=== PATIENT | male | born 1950 | race Caucasian/White ===

== ENCOUNTER 2017-04-20 14:08 | Inpatient (IN) | payer OTHER ==
--- NOTE | 2017-04-20 14:17 | EDM.PDOC ---
ED HPI GENERAL MEDICAL PROBLEM - General Stated Complaint: CHEST PAIN/ABDOMINAL PAIN Time Seen by Provider: 04/20/17 14:10 Source of Information: Reports: Patient History Limitations: Reports: No Limitations - History of Present Illness INITIAL COMMENTS - FREE TEXT/NARRATIVE: History of present illness: []Patient's had 2 weeks of right lower abdominal pain that radiates upward and causes pain below his shoulder blade on the right. He denies any fevers or chills, nausea or vomiting or bloody diarrhea. Was constipated and took over-the -counter meds for that. He is followed by the [facility] and sent him here for evaluation of chest pain. He denies any chest pain at this time. Patient states his appetite has not changed much he tolerates food. Review of systems: As per history of present illness and below otherwise all systems reviewed and negative. Past medical history: As per history of present illness and as reviewed below otherwise noncontributory. Surgical history: As per history of present illness and as reviewed below otherwise noncontributory. Social history: No reported history of drug or alcohol abuse. Family history: As per history of present illness and as reviewed below otherwise noncontributory. Physical exam: General: Well developed, well nourished in NAD HEENT: Atraumatic, normocephalic, pupils reactive, negative for conjunctival pallor or scleral icterus, mucous membranes moist, throat clear, neck supple, nontender, trachea midline. Lungs: Clear to auscultation, breath sounds equal bilaterally, chest nontender. Heart: S1S2, regular, negative for clicks, rubs, or JVD. Abdomen: Soft, nondistended, tender in the right upper and lower and left mid abdomen without rebound or guarding. Negative for masses or hepatosplenomegaly. Negative for costovertebral tenderness. Pelvis: Stable nontender. Genitourinary: Deferred. Rectal: Deferred. Extremities: Atraumatic, negative for cords or calf pain. Neurovascular unremarkable. Neuro: Awake, alert, oriented. Cranial nerves II through XII unremarkable. Cerebellum unremarkable. Motor and sensory unremarkable throughout. Exam nonfocal. Diagnostics: []Labs showing elevated white count of 19,000 and elevated liver function tests. UA is negative for infection positive for bilirubin. Lipase is 1000. CT abdomen and pelvis was ordered Therapeutics: []Patient was IV hydrated and kept nothing by mouth Impression: []Acute pancreatitis Plan: []Admit for IV hydration, further treatment Definitive disposition and diagnosis as appropriate pending reevaluation and review of above. Abdomen Pain Score (Numeric/FACES): 5 - Related Data Allergies Allergy/AdvReac Type Severity Reaction Status Date / Time No Known Allergies Allergy Verified 04/20/17 14:21 Home Meds: Home Meds Ibuprofen [Advil] 2 tab PO ASDIRECTED 04/20/17 [History] Past Medical History - Past Surgical History Other Musculoskeletal Surgeries/Procedures:: right finger surgery Social & Family History - Tobacco Use Smoking Status *Q: Never Smoker - Recreational Drug Use Recreational Drug Use: No ED ROS GENERAL - Review of Systems Review Of Systems: See Below ED EXAM, GENERAL - Physical Exam Exam: See Below (see history of present illness) Course - Vital Signs Last Recorded V/S: Last Vital Signs Temp 35.6 C 04/21/17 08:00 Pulse 75 04/21/17 08:00 Resp 22 H 04/21/17 08:00 BP 118/70 04/21/17 08:00 Pulse Ox 92 L 04/21/17 08:00 - Orders/Labs/Meds Orders: Active Orders 24 hr Category Date Time Status Patient Status [ADT] Routine ADT 04/20/17 17:25 Active Oxygen Therapy [RC] PRN Care 04/20/17 17:25 Active VTE/DVT Education [RC] PER UNIT ROUTINE Care 04/20/17 17:25 Active Vital Signs [RC] Q4H Care 04/20/17 17:25 Active Nothing per Oral Now Diet [DIET] Diet 04/20/17 Dinner Active Abdomen Pelvis w Cont [CT] Stat Exams 04/20/17 15:13 Ordered Chest 1V Frontal [CR] Stat Exams 04/20/17 14:20 Taken BASIC METABOLIC PANEL,BMP [CHEM] AM Lab 04/22/17 05:11 Ordered BASIC METABOLIC PANEL,BMP [CHEM] AM Lab 04/23/17 05:11 Ordered CBC WITH AUTO DIFF [HEME] AM Lab 04/22/17 05:11 Ordered CBC WITH AUTO DIFF [HEME] AM Lab 04/23/17 05:11 Ordered HYDROmorphone [Dilaudid] Med 04/20/17 17:24 Active 1 mg IVPUSH Q2H PRN Ondansetron [Zofran] Med 04/20/17 17:24 Active 4 mg IVPUSH Q4H PRN Sodium Chloride 0.9% [Normal Saline] 1,000 ml Med 04/20/17 17:45 Active IV ASDIRECTED Sodium Chloride 0.9% [Saline Flush] Med 04/20/17 14:19 Active 10 ml FLUSH ASDIRECTED PRN Sodium Chloride 0.9% [Saline Flush] Med 04/20/17 14:19 Active 2.5 ml FLUSH ASDIRECTED PRN Saline Lock Insert [OM.PC] Stat Ot 04/20/17 14:18 Ordered Saline Lock Insert [OM.PC] Stat Ot 04/20/17 14:19 Ordered Resuscitation Status Routine Resus Stat 04/20/17 17:24 Ordered Medication Orders Bisacodyl (Dulcolax) 10 mg PO DAILY [facility] Last Admin: 04/21/17 08:50 Dose: 10 mg Enoxaparin Sodium (Lovenox) 40 mg SUBCUT Q24H [facility] Last Admin: 04/20/17 19:19 Dose: 40 mg Hydromorphone HCl (Dilaudid) 1 mg IVPUSH Q2H PRN PRN Reason: Pain (severe 7-10) Sodium Chloride (Normal Saline) 1,000 mls @ 500 mls/hr IV ASDIRECTED [facility] Stop: 04/21/17 19:44 Last Admin: 04/20/17 21:36 Dose: 500 mls/hr Infusion: 04/20/17 20:31 Dose: 500 mls/hr Admin: 04/20/17 18:31 Dose: 500 mls/hr Ciprofloxacin/Dextrose 400 mg/ (Premix) 200 mls @ 200 mls/hr IV Q12H [facility] Last Admin: 04/21/17 08:51 Dose: 200 mls/hr Infusion: 04/20/17 20:31 Dose: 200 mls/hr Admin: 04/20/17 19:31 Dose: 200 mls/hr Sodium Chloride (Normal Saline) 1,000 mls @ 200 mls/hr IV ASDIRECTED [facility] Last Admin: 04/21/17 10:58 Dose: 200 mls/hr Infusion: 04/21/17 09:45 Dose: 200 mls/hr Admin: 04/21/17 04:45 Dose: 200 mls/hr Infusion: 04/21/17 04:41 Dose: 200 mls/hr Admin: 04/20/17 23:41 Dose: 200 mls/hr Ondansetron HCl (Zofran) 4 mg IVPUSH Q4H PRN PRN Reason: Pain Last Admin: 04/20/17 18:52 Dose: 4 mg Oxycodone HCl (Oxycodone) 10 mg PO Q4H PRN PRN Reason: Abdominal Pain Last Admin: 04/21/17 09:23 Dose: 10 mg Sodium Chloride (Saline Flush) 10 ml FLUSH ASDIRECTED PRN PRN Reason: Keep Vein Open Last Admin: 04/20/17 14:34 Dose: 10 ml Sodium Chloride (Saline Flush) 2.5 ml FLUSH ASDIRECTED PRN PRN Reason: Keep Vein Open Last Admin: 04/20/17 14:34 Dose: 2.5 ml Temazepam (Restoril) 15 mg PO BEDTIME PRN PRN Reason: Agitation Labs: Laboratory Tests 04/20/17 04/20/17 04/20/17 Range/Units 14:10 14:33 14:33 WBC 19.96 H (4.0-11.0) K/uL RBC 4.44 L (4.50-5.90) M/uL Hgb 15.4 (13.0-17.0) g/dL Hct 44.2 (38.0-50.0) % MCV 99.5 H (80.0-98.0) fL MCH 34.7 H (27.0-32.0) pg MCHC 34.8 (31.0-37.0) g/dL RDW Std Deviation 48.3 (28.0-62.0) fl RDW Coeff of Yasmani 13 (11.0-15.0) % Plt Count 332 (150-400) K/uL MPV 9.10 (7.40-12.00) fL Add Manual Diff YES Neutrophils % (Manual) 71 (48.0-80.0) % Band Neutrophils % 15 % Lymphocytes % (Manual) 11 L (16.0-40.0) % Monocytes % (Manual) 3 (0.0-15.0) % Nucleated RBC % 0.0 /100WBC Absolute Seg Neuts 14.2 Band Neutrophils # 3.0 Lymphocytes # (Manual) 2.2 Monocytes # (Manual) 0.6 Nucleated RBCs # 0 K/uL Lactate (0.20-2.00) mmol/L Sodium 137 (136-146) mmol/L Potassium 4.3 (3.5-5.1) mmol/L Chloride 102 (98-110) mmol/L Carbon Dioxide 25 (21-31) mmol/L BUN 11 (6.0-23.0) mg/dL Creatinine 0.8 (0.6-1.5) mg/dL Est Cr Clr Drug Dosing TNP Estimated GFR (MDRD) > 60.0 ml/min Glucose 170 H (60-110) mg/dL Hemoglobin A1c (0.0-6.0) % Calcium 8.4 L (8.8-10.8) mg/dL Total Bilirubin 1.9 H (0.1-1.5) mg/dL AST 169 H (5-40) IU/L ALT 252 H (8-54) IU/L Alkaline Phosphatase 199 H (40-150) Troponin I (0.0-0.29) NG/ML B-Natriuretic Peptide (<100) PG/ML Total Protein 7.6 (6.0-8.0) g/dL Albumin 3.2 L (3.4-4.8) g/dL Globulin 4.4 H (2.0-3.5) g/dL Albumin/Globulin Ratio 0.7 L (1.3-2.8) Triglycerides (10-190) mg/dL Cholesterol (131-240) mg/dL LDL Cholesterol, Calc (60-180) mg/dL VLDL Cholesterol (5-55) mg/dL HDL Cholesterol (40-80) mg/dL Cholesterol/HDL Ratio (3.3-6.0) Lipase (7-80) U/L Urine Color DARK YELLOW Urine Appearance CLEAR Urine pH 6.5 (5.0-8.0) Ur Specific [place] 1.015 (1.001-1.035) Urine Protein TRACE (NEGATIVE) mg/dL Urine Glucose (UA) 100 H (NEGATIVE) mg/dL Urine Ketones TRACE H (NEGATIVE) mg/dL Urine Occult Blood NEGATIVE (NEGATIVE) Urine Nitrite POSITIVE H (NEGATIVE) Urine Bilirubin MODERATE H (NEGATIVE) Urine Ictotest POSITIVE Urine Urobilinogen 4.0 H (<2.0) EU/dL Ur Leukocyte Esterase NEGATIVE (NEGATIVE) Urine RBC 0-2 (0-2/HPF) Urine WBC 0-2 (0-5/HPF) Ur Epithelial Cells FEW (NONE-FEW) Urine Bacteria FEW (NEGATIVE) 04/20/17 04/20/17 04/20/17 Range/Units 14:33 14:33 14:33 WBC (4.0-11.0) K/uL RBC (4.50-5.90) M/uL Hgb (13.0-17.0) g/dL Hct (38.0-50.0) % MCV (80.0-98.0) fL MCH (27.0-32.0) pg MCHC (31.0-37.0) g/dL RDW Std Deviation (28.0-62.0) fl RDW Coeff of Yasmani (11.0-15.0) % Plt Count (150-400) K/uL MPV (7.40-12.00) fL Add Manual Diff Neutrophils % (Manual) (48.0-80.0) % Band Neutrophils % % Lymphocytes % (Manual) (16.0-40.0) % Monocytes % (Manual) (0.0-15.0) % Nucleated RBC % /100WBC Absolute Seg Neuts Band Neutrophils # Lymphocytes # (Manual) Monocytes # (Manual) Nucleated RBCs # K/uL Lactate 1.3 (0.20-2.00) mmol/L Sodium (136-146) mmol/L Potassium (3.5-5.1) mmol/L Chloride (98-110) mmol/L Carbon Dioxide (21-31) mmol/L BUN (6.0-23.0) mg/dL Creatinine (0.6-1.5) mg/dL Est Cr Clr Drug Dosing Estimated GFR (MDRD) ml/min Glucose (60-110) mg/dL Hemoglobin A1c (0.0-6.0) % Calcium (8.8-10.8) mg/dL Total Bilirubin (0.1-1.5) mg/dL AST (5-40) IU/L ALT (8-54) IU/L Alkaline Phosphatase (40-150) Troponin I < 0.10 (0.0-0.29) NG/ML B-Natriuretic Peptide 40 (<100) PG/ML Total Protein (6.0-8.0) g/dL Albumin (3.4-4.8) g/dL Globulin (2.0-3.5) g/dL Albumin/Globulin Ratio (1.3-2.8) Triglycerides (10-190) mg/dL Cholesterol (131-240) mg/dL LDL Cholesterol, Calc (60-180) mg/dL VLDL Cholesterol (5-55) mg/dL HDL Cholesterol (40-80) mg/dL Cholesterol/HDL Ratio (3.3-6.0) Lipase (7-80) U/L Urine Color Urine Appearance Urine pH (5.0-8.0) Ur Specific [place] (1.001-1.035) Urine Protein (NEGATIVE) mg/dL Urine Glucose (UA) (NEGATIVE) mg/dL Urine Ketones (NEGATIVE) mg/dL Urine Occult Blood (NEGATIVE) Urine Nitrite (NEGATIVE) Urine Bilirubin (NEGATIVE) Urine Ictotest Urine Urobilinogen (<2.0) EU/dL Ur Leukocyte Esterase (NEGATIVE) Urine RBC (0-2/HPF) Urine WBC (0-5/HPF) Ur Epithelial Cells (NONE-FEW) Urine Bacteria (NEGATIVE) 04/20/17 04/20/17 04/20/17 Range/Units 14:33 14:33 14:33 WBC (4.0-11.0) K/uL RBC (4.50-5.90) M/uL Hgb (13.0-17.0) g/dL Hct (38.0-50.0) % MCV (80.0-98.0) fL MCH (27.0-32.0) pg MCHC (31.0-37.0) g/dL RDW Std Deviation (28.0-62.0) fl RDW Coeff of Yasmani (11.0-15.0) % Plt Count (150-400) K/uL MPV (7.40-12.00) fL Add Manual Diff Neutrophils % (Manual) (48.0-80.0) % Band Neutrophils % % Lymphocytes % (Manual) (16.0-40.0) % Monocytes % (Manual) (0.0-15.0) % Nucleated RBC % /100WBC Absolute Seg Neuts Band Neutrophils # Lymphocytes # (Manual) Monocytes # (Manual) Nucleated RBCs # K/uL Lactate (0.20-2.00) mmol/L Sodium (136-146) mmol/L Potassium (3.5-5.1) mmol/L Chloride (98-110) mmol/L Carbon Dioxide (21-31) mmol/L BUN (6.0-23.0) mg/dL Creatinine (0.6-1.5) mg/dL Est Cr Clr Drug Dosing Estimated GFR (MDRD) ml/min Glucose (60-110) mg/dL Hemoglobin A1c 6.7 H (0.0-6.0) % Calcium (8.8-10.8) mg/dL Total Bilirubin (0.1-1.5) mg/dL AST (5-40) IU/L ALT (8-54) IU/L Alkaline Phosphatase (40-150) Troponin I (0.0-0.29) NG/ML B-Natriuretic Peptide (<100) PG/ML Total Protein (6.0-8.0) g/dL Albumin (3.4-4.8) g/dL Globulin (2.0-3.5) g/dL Albumin/Globulin Ratio (1.3-2.8) Triglycerides 59 (10-190) mg/dL Cholesterol 179 (131-240) mg/dL LDL Cholesterol, Calc 140 (60-180) mg/dL VLDL Cholesterol 12 (5-55) mg/dL HDL Cholesterol 27 L (40-80) mg/dL Cholesterol/HDL Ratio 6.6 H (3.3-6.0) Lipase 1039 H (7-80) U/L Urine Color Urine Appearance Urine pH (5.0-8.0) Ur Specific [place] (1.001-1.035) Urine Protein (NEGATIVE) mg/dL Urine Glucose (UA) (NEGATIVE) mg/dL Urine Ketones (NEGATIVE) mg/dL Urine Occult Blood (NEGATIVE) Urine Nitrite (NEGATIVE) Urine Bilirubin (NEGATIVE) Urine Ictotest Urine Urobilinogen (<2.0) EU/dL Ur Leukocyte Esterase (NEGATIVE) Urine RBC (0-2/HPF) Urine WBC (0-5/HPF) Ur Epithelial Cells (NONE-FEW) Urine Bacteria (NEGATIVE) Meds: Medications Generic Name Dose Route Start Last Admin Trade Name Freq PRN Reason Stop Dose Admin Bisacodyl 10 mg 04/21/17 09:00 04/21/17 08:50 Dulcolax PO 10 mg DAILY VÍCTOR Administration Enoxaparin Sodium 40 mg 04/20/17 18:15 04/20/17 19:19 Lovenox SUBCUT 40 mg Q24H VÍCTOR Administration Hydromorphone HCl 1 mg 04/20/17 17:24 Dilaudid IVPUSH Q2H PRN Pain (severe 7-10) Sodium Chloride 1,000 mls @ 500 mls/hr 04/20/17 17:45 04/20/17 21:36 Normal Saline IV 04/21/17 19:44 500 mls/hr ASDIRECTED VÍCTOR Administration Ciprofloxacin/Dextrose 400 mg/ 200 mls @ 200 mls/hr 04/20/17 20:00 04/21/17 08:51 Premix IV 200 mls/hr Q12H VÍCTOR Administration Sodium Chloride 1,000 mls @ 200 mls/hr 04/20/17 19:45 04/21/17 10:58 Normal Saline IV 200 mls/hr ASDIRECTED VÍCTOR Administration Ondansetron HCl 4 mg 04/20/17 17:24 04/20/17 18:52 Zofran IVPUSH 4 mg Q4H PRN Administration Pain Oxycodone HCl 10 mg 04/20/17 18:50 04/21/17 09:23 Oxycodone PO 10 mg Q4H PRN Administration Abdominal Pain Sodium Chloride 10 ml 04/20/17 14:19 04/20/17 14:34 Saline Flush FLUSH 10 ml ASDIRECTED PRN Administration Keep Vein Open Sodium Chloride 2.5 ml 04/20/17 14:19 04/20/17 14:34 Saline Flush FLUSH 2.5 ml ASDIRECTED PRN Administration Keep Vein Open Temazepam 15 mg 04/20/17 18:26 Restoril PO BEDTIME PRN Agitation Discontinued Medications Generic Name Dose Route Start Last Admin Trade Name Freq PRN Reason Stop Dose Admin Acetaminophen 650 mg 04/20/17 17:24 Tylenol PO Q4H PRN Pain (Mild 1-3)/fever Sodium Chloride 1,000 mls @ 999 mls/hr 04/20/17 17:08 04/20/17 17:11 Normal Saline IV 04/20/17 18:08 999 mls/hr .Bolus ONE Administration Levofloxacin/Dextrose 750 mg/ 150 mls @ 100 mls/hr 04/20/17 19:00 04/20/17 19 :31 Premix IV Not Given Q24H VÍCTOR Iopamidol 100 ml 04/20/17 16:16 04/20/17 16:37 Isovue Multipack-370 (76%) IVPUSH 04/20/17 16:17 100 ml ONETIME STA Administration Departure - Departure Time of Disposition: 17:45 Disposition: Admitted As Inpatient 66 Condition: Good Clinical Impression: Acute pancreatitis Qualifiers: Pancreatitis type: unspecified pancreatitis type Acute pancreatitis complication: unspecified Qualified Code(s): K85.90 - Acute pancreatitis without necrosis or infection, unspecified - My Orders Last 24 Hours: My Active Orders 04/20/17 14:18 Saline Lock Insert [OM.PC] Stat 04/20/17 14:19 Sodium Chloride 0.9% [Saline Flush] 10 ml FLUSH ASDIRECTED PRN Sodium Chloride 0.9% [Saline Flush] 2.5 ml FLUSH ASDIRECTED PRN Saline Lock Insert [OM.PC] Stat 04/20/17 14:20 Chest 1V Frontal [CR] Stat 04/20/17 15:13 Abdomen Pelvis w Cont [CT] Stat - Assessment/Plan Last 24 Hours: My Active Orders 04/20/17 14:18 Saline Lock Insert [OM.PC] Stat 04/20/17 14:19 Sodium Chloride 0.9% [Saline Flush] 10 ml FLUSH ASDIRECTED PRN Sodium Chloride 0.9% [Saline Flush] 2.5 ml FLUSH ASDIRECTED PRN Saline Lock Insert [OM.PC] Stat 04/20/17 14:20 Chest 1V Frontal [CR] Stat 04/20/17 15:13 Abdomen Pelvis w Cont [CT] Stat
[2017-04-20] MEDS ORDERED: Sodium Chloride 0.9% 2.5 ML Syringe FLUSH PRN (14:19)
[2017-04-20] MEDS ORDERED: Sodium Chloride 0.9% 10 ML Syringe FLUSH PRN (14:19)
[2017-04-20 15:10] LABS: CHLORIDE,CL 102 mmol/L (98-110); SODIUM,NA 137 mmol/L (136-146)
[2017-04-20] MEDS ORDERED: Iopamidol 755 MG/ML 500 ML Multipack Bottle IVPUSH STA (16:16)
[2017-04-20] MEDS ORDERED: Sodium Chloride 0.9% 1,000 ML IV ONE (17:08)
[2017-04-20] MEDS ORDERED: HYDROmorphone 2 MG/ML Syringe IVPUSH PRN (17:24)
[2017-04-20] MEDS ORDERED: Acetaminophen 325 MG Tab PO PRN (17:24)
--- NOTE | 2017-04-20 17:51 | PCM.HP ---
H&P History of Present Illness - General Date of Service: 04/20/17 - History of Present Illness Initial Comments - Free Text/Narative: 67 yo otherwise healthy male admitted for gallstone pancreatitis. He was having intermittent abdominal pain x 2 weeks. Per patient He was seen in [place] and was tod he had constipation and was told take OTC medications.He states he had somewhat relief and his stools were regulated. Yesterday he had abdominal pain, nausea and vomiting. He noticed he did not have a bowel movement . His n/v persisted. He does not have chest pain, heartburn, palpitations, diarrhea, hematemesis, or other pertinent symptoms. In the ED, VSS. He had elevated LFT, Total bilirubin, lipase in 1000. Lactate was wnl. EKG negative for acute ST or T wave changes. Abdominal CT showed acute pancreatitis, cholethiasis, diverticulosis. He does not have any other medical conditions such as HTN, DM, CAD. He does not drink ETOH, smoke cigarettes or use illicit drugs. Abdomen Pain Score (Numeric/FACES): 5 - Related Data Allergies/Adverse Reactions: Allergies Allergy/AdvReac Type Severity Reaction Status Date / Time No Known Allergies Allergy Verified 04/20/17 14:21 Home Medications: Home Meds Ibuprofen [Advil] 2 tab PO ASDIRECTED 04/20/17 [History] Past Medical History HEENT History: Reports: None Cardiovascular History: Reports: None Respiratory History: Reports: None Gastrointestinal History: Reports: Diverticulosis Genitourinary History: Reports: None Musculoskeletal History: Reports: None Neurological History: Reports: None Psychiatric History: Reports: None Endocrine/Metabolic History: Reports: Other (See Below) Other Endocrine/Metabolic History: elevated blood sugar. DM - borderline Hematologic History: Reports: None Oncologic (Cancer) History: Reports: None Dermatologic History: Reports: None - Infectious Disease History Infectious Disease History: Reports: None - Past Surgical History Other Musculoskeletal Surgeries/Procedures:: right finger surgery Social & Family History - Family History Family Medical History: Noncontributory - Tobacco Use Smoking Status *Q: Never Smoker - Caffeine Use Caffeine Use: Reports: Soda - Recreational Drug Use Recreational Drug Use: No H&P Review of Systems - Review of Systems: Review Of Systems: See Below General: Reports: Fatigue Pulmonary: Reports: No Symptoms Cardiovascular: Reports: No Symptoms Gastrointestinal: Reports: Abdominal Pain Genitourinary: Reports: No Symptoms Musculoskeletal: Reports: No Symptoms Skin: Reports: No Symptoms Psychiatric: Reports: No Symptoms Exam - Exam Exam: See Below - Vital Signs Vital Signs: Last Vital Signs Temp 98.6 F 04/20/17 14:21 Pulse 89 04/20/17 16:58 Resp 14 04/20/17 16:58 BP 118/96 H 04/20/17 16:58 Pulse Ox 96 04/20/17 16:58 Weight: 149.685 kg - Exam General: Alert, Oriented, Other (dry changes) HEENT: Conjunctiva Clear, EOMI Neck: Supple, Trachea Midline Lungs: Normal Respiratory Effort, Decreased Breath Sounds Cardiovascular: Regular Rate, Regular Rhythm GI/Abdominal Exam: Soft, Tender, Other (RUQ tenderness. ) Back Exam: Normal Inspection Extremities: Normal Inspection Skin: Warm, Dry, Intact Neuro Extensive - Mental Status: Alert, Oriented x3, Normal Mood/Affect Psychiatric: Alert, Normal Affect, Normal Mood - Patient Data Result Diagrams: 04/20/17 14:33 04/20/17 14:33 *Q Meaningful Use (ADM) - VTE *Q VTE Criteria *Q: - Stroke *Q Stroke Criteria *Q: - AMI *Q AMI Criteria *Q: Problem List Initiated/Reviewed/Updated: Yes Orders Last 24hrs: Medication Orders Acetaminophen (Tylenol) 650 mg PO Q4H PRN PRN Reason: Pain (Mild 1-3)/fever Hydromorphone HCl (Dilaudid) 1 mg IVPUSH Q2H PRN PRN Reason: Pain (severe 7-10) Sodium Chloride (Normal Saline) 1,000 mls @ 999 mls/hr IV .Bolus ONE Stop: 04/20/17 18:08 Last Admin: 04/20/17 17:11 Dose: 999 mls/hr Sodium Chloride (Normal Saline) 1,000 mls @ 500 mls/hr IV ASDIRECTED VÍCTOR Ondansetron HCl (Zofran) 4 mg IVPUSH Q4H PRN PRN Reason: Pain Sodium Chloride (Saline Flush) 10 ml FLUSH ASDIRECTED PRN PRN Reason: Keep Vein Open Last Admin: 04/20/17 14:34 Dose: 10 ml Sodium Chloride (Saline Flush) 2.5 ml FLUSH ASDIRECTED PRN PRN Reason: Keep Vein Open Last Admin: 04/20/17 14:34 Dose: 2.5 ml Assessment/Plan Comment:: 67 yo male admitted gallstone pancreatitis. NPO except ice chips and meds IVF at 500ml/hr consider surgical consult for cholelithiasis. No evidence of pseudocyst or necrosis : no indication of antibiotics at this time. Pain: Dilaudid prn constipation: dulcolax
[2017-04-20] MEDS ORDERED: Temazepam 15 MG Cap PO PRN (18:26)
[2017-04-20] MEDS: Sodium Chloride 0.9% 1,000 ML IV SCH ×3 (18:31→23:41)
[2017-04-20] MEDS: Ondansetron 4 MG/2 ML SDV IVPUSH PRN (18:52)
[2017-04-20] MEDS ORDERED: Levofloxacin/Dextrose 5%-Water 750 MG in Premix Bag 1 BAG IV SCH (19:00)
[2017-04-20] MEDS: Enoxaparin 40 MG/0.4 ML Syringe SUBCUT SCH (19:19)
[2017-04-20] MEDS: Ciprofloxacin in D5W 400 MG in Premix Bag 1 BAG IV SCH ×2 (19:31)
[2017-04-21] MEDS: Sodium Chloride 0.9% 1,000 ML IV SCH ×4 (04:45→23:48)
[2017-04-21 06:41] LABS: CHLORIDE,CL 108 mmol/L (98-110); SODIUM,NA 136 mmol/L (136-146)
[2017-04-21] MEDS: Bisacodyl 5 MG Tab PO SCH (08:50)
[2017-04-21] MEDS: Ciprofloxacin in D5W 400 MG in Premix Bag 1 BAG IV SCH ×4 (08:51→20:36)
[2017-04-21] MEDS: oxyCODONE 5 MG Tab PO PRN ×3 (09:23→19:16)
--- NOTE | 2017-04-21 14:05 | PCM.PN ---
- General Info Date of Service: 04/21/17 Admission Dx/Problem (Free Text): The patient was admitted secondary to gallstone pancreatitis and has a history of diverticulosis. Functional Status: Reports: Pain Controlled - Review of Systems General: Reports: No Symptoms HEENT: Reports: No Symptoms Pulmonary: Reports: No Symptoms Cardiovascular: Reports: No Symptoms Gastrointestinal: Reports: Abdominal Pain, Decreased Appetite Genitourinary: Reports: No Symptoms Musculoskeletal: Reports: No Symptoms Skin: Reports: No Symptoms Neurological: Reports: No Symptoms Psychiatric: Reports: No Symptoms - Patient Data Vitals - most recent: Last Vital Signs Temp 36.7 C 04/21/17 11:46 Pulse 73 04/21/17 11:46 Resp 22 H 04/21/17 11:46 BP 129/66 04/21/17 11:46 Pulse Ox 94 L 04/21/17 11:46 Weight - most recent: 149.685 kg I&O - last 24 hours: Intake & Output 04/20/17 04/21/17 04/21/17 22:59 06:59 14:59 Intake Total 2200 2000 1200 Output Total 500 Balance 2200 1500 1200 Lab Results last 24 hrs: Laboratory Results - last 24 hr 04/21/17 04/21/17 04/21/17 Range/Units 01:00 05:50 05:50 WBC 18.86 H (4.0-11.0) K/uL RBC 3.84 L (4.50-5.90) M/uL Hgb 12.9 L (13.0-17.0) g/dL Hct 39.6 (38.0-50.0) % MCV 103.1 H (80.0-98.0) fL MCH 33.6 H (27.0-32.0) pg MCHC 32.6 (31.0-37.0) g/dL RDW Std Deviation 51.4 (28.0-62.0) fl RDW Coeff of Yasmani 14 (11.0-15.0) % Plt Count 270 (150-400) K/uL MPV 9.00 (7.40-12.00) fL Add Manual Diff YES Neutrophils % (Manual) 68 (48.0-80.0) % Band Neutrophils % 8 % Lymphocytes % (Manual) 11 L (16.0-40.0) % Monocytes % (Manual) 6 (0.0-15.0) % Eosinophils % (Manual) 6 (0.0-7.0) % Basophils % (Manual) 1 (0.0-1.5) % Nucleated RBC % 0.0 /100WBC Absolute Seg Neuts 12.8 Band Neutrophils # 1.5 Lymphocytes # (Manual) 2.1 Monocytes # (Manual) 1.1 Eosinophils # (Manual) 1.1 Basophils # (Manual) 0 Nucleated RBCs # 0 K/uL Sodium 136 (136-146) mmol/L Potassium 4.3 (3.5-5.1) mmol/L Chloride 108 (98-110) mmol/L Carbon Dioxide 22 (21-31) mmol/L BUN 9 (6.0-23.0) mg/dL Creatinine 0.7 (0.6-1.5) mg/dL Est Cr Clr Drug Dosing TNP Estimated GFR (MDRD) > 60.0 ml/min Glucose 140 H (60-110) mg/dL Calcium 7.9 L (8.8-10.8) mg/dL Phosphorus 3.4 (2.4-4.7) mg/dL Magnesium 1.5 (1.5-2.3) mEq/L Lipase 287 H (7-80) U/L Urine Color DARK YELLOW Urine Appearance CLEAR Urine pH 6.0 (5.0-8.0) Ur Specific [place] 1.025 (1.001-1.035) Urine Protein NEGATIVE (NEGATIVE) mg/dL Urine Glucose (UA) NEGATIVE (NEGATIVE) mg/dL Urine Ketones NEGATIVE (NEGATIVE) mg/dL Urine Occult Blood NEGATIVE (NEGATIVE) Urine Nitrite NEGATIVE (NEGATIVE) Urine Bilirubin SMALL H (NEGATIVE) Urine Ictotest NEGATIVE Urine Urobilinogen 1.0 (<2.0) EU/dL Ur Leukocyte Esterase NEGATIVE (NEGATIVE) Urine RBC 0-1 (0-2/HPF) Urine WBC 1-3 (0-5/HPF) Ur Epithelial Cells OCCASIONAL (NONE-FEW) Urine Bacteria FEW (NEGATIVE) Urine Mucus FEW (NONE-MOD) Med Orders - Current: Current Medications Bisacodyl (Dulcolax) 10 mg PO DAILY [facility] Last Admin: 04/21/17 08:50 Dose: 10 mg Enoxaparin Sodium (Lovenox) 40 mg SUBCUT Q24H [facility] Last Admin: 04/20/17 19:19 Dose: 40 mg Hydromorphone HCl (Dilaudid) 1 mg IVPUSH Q2H PRN PRN Reason: Pain (severe 7-10) Sodium Chloride (Normal Saline) 1,000 mls @ 500 mls/hr IV ASDIRECTED [facility] Stop: 04/21/17 19:44 Last Admin: 04/20/17 21:36 Dose: 500 mls/hr Ciprofloxacin/Dextrose 400 mg/ (Premix) 200 mls @ 200 mls/hr IV Q12H [facility] Last Admin: 04/21/17 08:51 Dose: 200 mls/hr Sodium Chloride (Normal Saline) 1,000 mls @ 200 mls/hr IV ASDIRECTED [facility] Last Admin: 04/21/17 10:58 Dose: 200 mls/hr Ondansetron HCl (Zofran) 4 mg IVPUSH Q4H PRN PRN Reason: Pain Last Admin: 04/20/17 18:52 Dose: 4 mg Oxycodone HCl (Oxycodone) 10 mg PO Q4H PRN PRN Reason: Abdominal Pain Last Admin: 04/21/17 09:23 Dose: 10 mg Sodium Chloride (Saline Flush) 10 ml FLUSH ASDIRECTED PRN PRN Reason: Keep Vein Open Last Admin: 04/20/17 14:34 Dose: 10 ml Sodium Chloride (Saline Flush) 2.5 ml FLUSH ASDIRECTED PRN PRN Reason: Keep Vein Open Last Admin: 04/20/17 14:34 Dose: 2.5 ml Temazepam (Restoril) 15 mg PO BEDTIME PRN PRN Reason: Agitation Discontinued Medications Acetaminophen (Tylenol) 650 mg PO Q4H PRN PRN Reason: Pain (Mild 1-3)/fever Sodium Chloride (Normal Saline) 1,000 mls @ 999 mls/hr IV .Bolus ONE Stop: 04/20/17 18:08 Last Admin: 04/20/17 17:11 Dose: 999 mls/hr Levofloxacin/Dextrose 750 mg/ (Premix) 150 mls @ 100 mls/hr IV Q24H [facility] Last Admin: 04/20/17 19:31 Dose: Not Given Iopamidol (Isovue Multipack-370 (76%)) 100 ml IVPUSH ONETIME [facility] Stop: 04/20/17 16:17 Last Admin: 04/20/17 16:37 Dose: 100 ml - Exam Quality Assessment: supplemental oxygen General: alert, oriented, cooperative HEENT: Pupils equal, Pupils reactive, EOMI, Mucous membr. moist/pink Neck: supple, trachea midline Lungs: Clear to Auscultation, Normal Respiratory Effort Cardiovascular: Regular Rate, Regular Rhythm GI/Abdominal Exam: Normal Bowel Sounds, Soft, No Organomegaly, Tender ( Epigastrium) Back Exam: Decreased Range of Motion Extremities: Normal Inspection, Non-Tender, No Pedal Edema Skin: warm, dry Neurological: no new focal deficit Psy/Mental Status: alert, normal affect, normal mood - Problem List & Annotations (1) Acute pancreatitis SNOMED Code(s): 917130842 Code(s): K85.90 - ACUTE PANCREATITIS WITHOUT NECROSIS OR INFECTION, UNSP Status: Acute Priority: High Current Visit: Yes Qualifiers: Pancreatitis type: unspecified pancreatitis type Acute pancreatitis complication: unspecified Qualified Code(s): K85.90 - Acute pancreatitis without necrosis or infection, unspecified (2) Transaminitis SNOMED Code(s): 288420169 Code(s): R74.0 - NONSPEC ELEV OF LEVELS OF TRANSAMNS & LACTIC ACID DEHYDRGNSE Status: Acute Current Visit: Yes (3) Diverticulosis SNOMED Code(s): 212761593 Code(s): K57.90 - DVRTCLOS OF INTEST, PART UNSP, W/O PERF OR ABSCESS W/O BLEED Status: Acute Current Visit: Yes Qualifiers: Diverticulosis site: diverticulosis of large intestine Diverticulosis bleeding: diverticulosis without bleeding Qualified Code(s): K57.30 - Diverticulosis of large intestine without perforation or abscess without bleeding - Problem List Review Problem List Initiated/Reviewed/Updated: Yes - Plan Plan:: 67 yo male admitted gallstone pancreatitis. NPO except ice chips and meds IVF at 500ml/hr consider surgical consult for cholelithiasis. No evidence of pseudocyst or necrosis : no indication of antibiotics at this time. Pain: Dilaudid prn constipation: dulcolax April 21, 2017: The patient is a 67-year-old gentleman who is admitted through the emergency department secondary to acute pancreatitis. Patient also has a history of diverticulosis as well. The patient was admitted primarily for pain control, IV fluids and bowel rest. The patient today says that he is doing much better. He has had some bowel movements. The patient also says that his pain is much better controlled and it has been located primarily in the epigastrium. The patient has denied any shortness of breath or nausea and vomiting at this time. The patient has reported that he likely needs to have his gallbladder removed soon. They the patient's lipase has improved from 1039 down to 287. Overall the patient says that he is doing much better today. Patient's ALT and AST were also noted to be elevated at 169 at 252 respectively. Alkaline phosphatases also elevated and these will be monitored. Given that the patient' s pancreatitis secondary to cholelithiasis as it has been reported that the patient does have gallstones on CT scan. Patient will be continued on his medication currently and I've also elected to continue the patient on the antibiotics as his white blood cell count has been trending down. The patient initial white blood cell count was 19,000 and is now trended down to 18,000. He is currently having IV ciprofloxacin and this will be continued. The patient will also have his CBC and comp intensive metabolic panel ordered in the morning. The patient's treatment plan will be adjusted accordingly. He is to continue on the Lovenox for DVT prophylaxis and hydromorphone for pain. The patient will be continued to be fluid resuscitated.
[2017-04-21] MEDS: Enoxaparin 40 MG/0.4 ML Syringe SUBCUT SCH (17:33)
[2017-04-22] MEDS: oxyCODONE 5 MG Tab PO PRN ×3 (03:38→20:06)
[2017-04-22] MEDS: Ondansetron 4 MG/2 ML SDV IVPUSH PRN (03:45)
[2017-04-22] MEDS: Sodium Chloride 0.9% 1,000 ML IV SCH ×4 (05:00→22:43)
[2017-04-22 06:31] LABS: CHLORIDE,CL 106 mmol/L (98-110); SODIUM,NA 135 mmol/L (136-146)
[2017-04-22] MEDS: Ciprofloxacin in D5W 400 MG in Premix Bag 1 BAG IV SCH ×4 (07:45→20:07)
[2017-04-22] MEDS: Bisacodyl 5 MG Tab PO SCH (08:52)
--- NOTE | 2017-04-22 10:05 | PCM.PN ---
- General Info Date of Service: 04/22/17 Admission Dx/Problem (Free Text): The patient was admitted secondary to gallstone pancreatitis and has a history of diverticulosis. Subjective Update: Feeling better today. Pain controlled Functional Status: Reports: Pain Controlled - Review of Systems General: Reports: No Symptoms HEENT: Reports: No Symptoms Pulmonary: Reports: No Symptoms Cardiovascular: Reports: No Symptoms Gastrointestinal: Reports: Abdominal Pain Genitourinary: Reports: No Symptoms Musculoskeletal: Reports: No Symptoms Skin: Reports: No Symptoms Neurological: Reports: No Symptoms Psychiatric: Reports: No Symptoms - Patient Data Vitals - most recent: Last Vital Signs Temp 36.4 C 04/22/17 08:00 Pulse 74 04/22/17 08:00 Resp 12 04/22/17 08:00 BP 91/55 L 04/22/17 08:00 Pulse Ox 92 L 04/22/17 08:00 Weight - most recent: 149.685 kg I&O - last 24 hours: Intake & Output 04/21/17 04/22/17 04/22/17 22:59 06:59 14:59 Intake Total 1471 2248 200 Output Total 900 600 Balance 571 1648 200 Lab Results last 24 hrs: Laboratory Results - last 24 hr 04/22/17 04/22/17 04/22/17 Range/Units 05:17 05:17 05:17 WBC 16.94 H (4.0-11.0) K/uL RBC 3.61 L (4.50-5.90) M/uL Hgb 12.3 L (13.0-17.0) g/dL Hct 37.7 L (38.0-50.0) % MCV 104.4 H (80.0-98.0) fL MCH 34.1 H (27.0-32.0) pg MCHC 32.6 (31.0-37.0) g/dL RDW Std Deviation 51.7 (28.0-62.0) fl RDW Coeff of Yasmani 14 (11.0-15.0) % Plt Count 237 (150-400) K/uL MPV 9.10 (7.40-12.00) fL Add Manual Diff YES Neutrophils % (Manual) 74 (48.0-80.0) % Band Neutrophils % 7 % Lymphocytes % (Manual) 9 L (16.0-40.0) % Monocytes % (Manual) 4 (0.0-15.0) % Eosinophils % (Manual) 5 (0.0-7.0) % Basophils % (Manual) 1 (0.0-1.5) % Nucleated RBC % 0.0 /100WBC Absolute Seg Neuts 12.5 Band Neutrophils # 1.2 Lymphocytes # (Manual) 1.5 Monocytes # (Manual) 0.7 Eosinophils # (Manual) 0.8 Basophils # (Manual) 0 Nucleated RBCs # 0 K/uL Sodium 135 L (136-146) mmol/L Potassium 4.1 (3.5-5.1) mmol/L Chloride 106 (98-110) mmol/L Carbon Dioxide 23 (21-31) mmol/L BUN 8 (6.0-23.0) mg/dL Creatinine 0.6 (0.6-1.5) mg/dL Est Cr Clr Drug Dosing TNP Estimated GFR (MDRD) > 60.0 ml/min Glucose 92 (60-110) mg/dL Hemoglobin A1c 6.6 H (0.0-6.0) % Calcium 7.9 L (8.8-10.8) mg/dL Total Bilirubin 0.8 (0.1-1.5) mg/dL AST 31 (5-40) IU/L ALT 95 H (8-54) IU/L Alkaline Phosphatase 124 (40-150) Total Protein 6.2 (6.0-8.0) g/dL Albumin 2.7 L (3.4-4.8) g/dL Globulin 3.5 (2.0-3.5) g/dL Albumin/Globulin Ratio 0.8 L (1.3-2.8) Lipase 98 H (7-80) U/L Med Orders - Current: Current Medications Bisacodyl (Dulcolax) 10 mg PO DAILY [facility] Last Admin: 04/22/17 08:52 Dose: 10 mg Enoxaparin Sodium (Lovenox) 40 mg SUBCUT Q24H [facility] Last Admin: 04/21/17 17:33 Dose: 40 mg Hydromorphone HCl (Dilaudid) 1 mg IVPUSH Q2H PRN PRN Reason: Pain (severe 7-10) Ciprofloxacin/Dextrose 400 mg/ (Premix) 200 mls @ 200 mls/hr IV Q12H [facility] Last Admin: 04/22/17 07:45 Dose: 200 mls/hr Sodium Chloride (Normal Saline) 1,000 mls @ 200 mls/hr IV ASDIRECTED [facility] Last Admin: 04/22/17 05:00 Dose: 200 mls/hr Ondansetron HCl (Zofran) 4 mg IVPUSH Q4H PRN PRN Reason: Pain Last Admin: 04/22/17 03:45 Dose: 4 mg Oxycodone HCl (Oxycodone) 10 mg PO Q4H PRN PRN Reason: Abdominal Pain Last Admin: 04/22/17 03:38 Dose: 10 mg Sodium Chloride (Saline Flush) 10 ml FLUSH ASDIRECTED PRN PRN Reason: Keep Vein Open Last Admin: 04/20/17 14:34 Dose: 10 ml Sodium Chloride (Saline Flush) 2.5 ml FLUSH ASDIRECTED PRN PRN Reason: Keep Vein Open Last Admin: 04/20/17 14:34 Dose: 2.5 ml Temazepam (Restoril) 15 mg PO BEDTIME PRN PRN Reason: Agitation Discontinued Medications Acetaminophen (Tylenol) 650 mg PO Q4H PRN PRN Reason: Pain (Mild 1-3)/fever Sodium Chloride (Normal Saline) 1,000 mls @ 999 mls/hr IV .Bolus ONE Stop: 04/20/17 18:08 Last Admin: 04/20/17 17:11 Dose: 999 mls/hr Sodium Chloride (Normal Saline) 1,000 mls @ 500 mls/hr IV ASDIRECTED [facility] Stop: 04/21/17 19:44 Last Admin: 04/20/17 21:36 Dose: 500 mls/hr Levofloxacin/Dextrose 750 mg/ (Premix) 150 mls @ 100 mls/hr IV Q24H [facility] Last Admin: 04/20/17 19:31 Dose: Not Given Iopamidol (Isovue Multipack-370 (76%)) 100 ml IVPUSH ONETIME [facility] Stop: 04/20/17 16:17 Last Admin: 04/20/17 16:37 Dose: 100 ml - Exam Quality Assessment: supplemental oxygen (2 L/m via nasal cannula) General: alert, oriented HEENT: Pupils equal, Pupils reactive Neck: supple, trachea midline. No: lymphadenopathy Lungs: Clear to Auscultation, Normal Respiratory Effort Cardiovascular: Regular Rate, Regular Rhythm GI/Abdominal Exam: Normal Bowel Sounds, Soft, Tender Back Exam: Normal Inspection, Decreased Range of Motion Extremities: Normal Inspection, No Pedal Edema Skin: warm, dry, intact Neurological: no new focal deficit Psy/Mental Status: alert, normal affect - Problem List & Annotations (1) Acute pancreatitis SNOMED Code(s): 367876150 Code(s): K85.90 - ACUTE PANCREATITIS WITHOUT NECROSIS OR INFECTION, UNSP Status: Acute Priority: High Current Visit: Yes Qualifiers: Pancreatitis type: biliary Acute pancreatitis complication: no infection or necrosis Qualified Code(s): K85.10 - Biliary acute pancreatitis without necrosis or infection (2) Transaminitis SNOMED Code(s): 925253293 Code(s): R74.0 - NONSPEC ELEV OF LEVELS OF TRANSAMNS & LACTIC ACID DEHYDRGNSE Status: Resolved Priority: High Current Visit: Yes (3) Diverticulosis SNOMED Code(s): 286160721 Code(s): K57.90 - DVRTCLOS OF INTEST, PART UNSP, W/O PERF OR ABSCESS W/O BLEED Status: Chronic Priority: Medium Current Visit: Yes Qualifiers: Diverticulosis site: diverticulosis of large intestine Diverticulosis bleeding: diverticulosis without bleeding Qualified Code(s): K57.30 - Diverticulosis of large intestine without perforation or abscess without bleeding (4) DM2 (diabetes mellitus, type 2) SNOMED Code(s): 95761375 Code(s): E11.9 - TYPE 2 DIABETES MELLITUS WITHOUT COMPLICATIONS Status: Chronic Priority: High Current Visit: Yes Qualifiers: Diabetes mellitus complication status: without complication Diabetes mellitus half-way insulin use: without half-way use Qualified Code(s): E11.9 - Type 2 diabetes mellitus without complications Annotation/Comment:: Hemoglobin A1c 6.6%. - Problem List Review Problem List Initiated/Reviewed/Updated: Yes - My Orders Last 24 Hours: My Active Orders 04/22/17 09:54 Consult to Physician [CONS] Routine 04/22/17 09:55 Notify Provider Consults [RC] ASDIRECTED 04/22/17 Lunch Clear Liquid Diet [DIET] - Plan Plan:: 67 yo male admitted gallstone pancreatitis. NPO except ice chips and meds IVF at 500ml/hr consider surgical consult for cholelithiasis. No evidence of pseudocyst or necrosis : no indication of antibiotics at this time. Pain: Dilaudid prn constipation: dulcolax April 21, 2017: The patient is a 67-year-old gentleman who is admitted through the emergency department secondary to acute pancreatitis. Patient also has a history of diverticulosis as well. The patient was admitted primarily for pain control, IV fluids and bowel rest. The patient today says that he is doing much better. He has had some bowel movements. The patient also says that his pain is much better controlled and it has been located primarily in the epigastrium. The patient has denied any shortness of breath or nausea and vomiting at this time. The patient has reported that he likely needs to have his gallbladder removed soon. They the patient's lipase has improved from 1039 down to 287. Overall the patient says that he is doing much better today. Patient's ALT and AST were also noted to be elevated at 169 at 252 respectively. Alkaline phosphatases also elevated and these will be monitored. Given that the patient' s pancreatitis secondary to cholelithiasis as it has been reported that the patient does have gallstones on CT scan. Patient will be continued on his medication currently and I've also elected to continue the patient on the antibiotics as his white blood cell count has been trending down. The patient initial white blood cell count was 19,000 and is now trended down to 18,000. He is currently having IV ciprofloxacin and this will be continued. The patient will also have his CBC and comp intensive metabolic panel ordered in the morning. The patient's treatment plan will be adjusted accordingly. He is to continue on the Lovenox for DVT prophylaxis and hydromorphone for pain. The patient will be continued to be fluid resuscitated. April 22, 2017: The patient is a 67-year-old gentleman who had been admitted to the emergency department after being referred by the [facility] secondary to chest pain. The patient denied having any chest pain. CT scan which was obtained on 20 April 2017 showed pancreatic inflammation with cholelithiasis. The patient denied alcohol use. Patient today is doing better, his pain is controlled and he has denied any nausea or vomiting. The patient has been previously on nothing by mouth/ice chips. The patient's hemoglobin A1c today is 6.6%. The patient's ALT and AST have dropped to 31 and 95 respectively. His alkaline phosphatase is also normalized. The patient's lipase is down to 98 L per unit. I have talked and discussed the case with surgeon, Dr. June, for evaluation of cholelithiasis. I've also advance the patient's diet to clear liquid diet. The patient's blood sugars will continue to be monitored for any episodes of hyperglycemia. I've encouraged the patient ambulate. The patient may likely be appropriate for discharge tomorrow with further recommendations to follow.
[2017-04-22] MEDS: Clotrimazole 1% Crm 30 GM Tube TOP SCH ×2 (12:33→20:08)
--- NOTE | 2017-04-22 14:22 | PCM.CONS ---
H&P History of Present Illness - General Date of Service: 04/22/17 Admit Problem/Dx: 67 y/o gentleman admitted 04/20 with a 2 week history of abdominal pain. [facility] and was treated for that. Symptoms did not improve and he continued to have worsening abdominal pain, nausea and vomiting. Was not even able to keep liquids down. CT scan reportedly showed pancreatitis with cholelithiasis. Written report not available on medical record. Will review. Did have significant lipasemia(<1000) that has now resolved. Patient states he is feeling better today but continues to use Dilaudid. WBC remains elevated--above 16K yet today with a left shift. No prior history of abdominal pain, fatty food intolerance or biliary colic. Source of Information: Patient History Limitations: Reports: No Limitations - History of Present Illness Duration of Symptoms: Reports: Week(s):, Chronic, Constant Location: Reports: Abdomen Quality: Reports: Pressure Severity: Moderate Improves with: Reports: Rest Worsens with: Reports: Movement Associated Symptoms: Reports: Chest Pain (did have chest pain on admission that has now resolved.), Loss of Appetite, Nausea/Vomiting. Denies: Confusion, Cough , Diaphoresis, Fever/Chills, Headaches Abdomen Pain Score (Numeric/FACES): 3 - Related Data Allergies/Adverse Reactions: Allergies Allergy/AdvReac Type Severity Reaction Status Date / Time No Known Allergies Allergy Verified 04/20/17 14:21 Home Medications: Home Meds Ibuprofen [Advil] 2 tab PO ASDIRECTED 04/20/17 [History] Past Medical History HEENT History: Reports: None Cardiovascular History: Reports: None Respiratory History: Reports: None Gastrointestinal History: Reports: Diverticulosis Genitourinary History: Reports: None Musculoskeletal History: Reports: None 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 DM - borderline Hematologic History: Reports: None Oncologic (Cancer) History: Reports: None Dermatologic History: Reports: None - Infectious Disease History Infectious Disease History: Reports: None - Past Surgical History GI Surgical History: Reports: Colonoscopy Other Musculoskeletal Surgeries/Procedures:: right finger surgery Social & Family History - Family History Family Medical History: Noncontributory Cardiac: Reports: Angina GI: Reports: Hiatal Hernia Neurological: Reports: MS Endocrine/Metabolic: Reports: Other (See Below) Other Endocrine/Metabolic Family History: DM type unknown Oncologic: Reports: Other (See Below) Other Oncologic Family History: Kidney - Tobacco Use Smoking Status *Q: Never Smoker - Caffeine Use Caffeine Use: Reports: Soda - Recreational Drug Use Recreational Drug Use: No H&P Review of Systems - Review of Systems: Review Of Systems: See Below General: Reports: Malaise, Decreased Appetite. Denies: Fever, Chills HEENT: Reports: No Symptoms Pulmonary: Denies: Shortness of Breath, Wheezing Cardiovascular: Denies: Chest Pain, Palpitations Gastrointestinal: Reports: Abdominal Pain (primarily epigastric), Anorexia, Constipation, Decreased Appetite, Flatus. Denies: Diarrhea, Hematemesis, Hematochezia, Melena Genitourinary: Denies: Dysuria, Frequency, Burning, Pain, Urgency, Incontinence , Hematuria Musculoskeletal: Reports: No Symptoms Skin: Denies: Cyanosis, Jaundice Psychiatric: Reports: No Symptoms Neurological: Reports: No Symptoms Hematologic/Lymphatic: Reports: No Symptoms Immunologic: Reports: No Symptoms Exam - Exam Exam: See Below - Vital Signs Vital Signs: Last Vital Signs Temp 98.1 F 04/22/17 12:00 Pulse 76 04/22/17 12:00 Resp 16 04/22/17 12:00 BP 89/62 L 04/22/17 12:00 Pulse Ox 90 L 04/22/17 12:00 Weight: 330 lb - Exam Quality Assessment: No: Supplemental Oxygen General: Alert, Oriented, Cooperative, Mild Distress HEENT: Conjunctiva Clear, Pupils Equal, Pupils Reactive. No: Scleral Icterus Neck: Supple Lungs: Clear to Auscultation, Normal Respiratory Effort Cardiovascular: Regular Rate, Regular Rhythm. No: Tachycardia GI/Abdominal Exam: Soft, Non-Tender, No Organomegaly, No Distention, Abnormal Bowel Sounds (hypoactive). No: Guarding, Rigid, Rebound, Tender (Male) Exam: No Hernia, Normal Inspection Rectal (Males) Exam: Deferred Back Exam: Normal Inspection Extremities: Normal Inspection, Non-Tender Skin: Warm, Dry, Intact Neurological: Cranial Nerves Intact Neuro Extensive - Mental Status: Alert, Oriented x3, Normal Mood/Affect, Normal Cognition Psychiatric: Alert, Normal Affect, Normal Mood - Patient Data Lab Results Last 24 hrs: Laboratory Results - last 24 hr 04/22/17 04/22/17 04/22/17 Range/Units 05:17 05:17 05:17 WBC 16.94 H (4.0-11.0) K/uL RBC 3.61 L (4.50-5.90) M/uL Hgb 12.3 L (13.0-17.0) g/dL Hct 37.7 L (38.0-50.0) % MCV 104.4 H (80.0-98.0) fL MCH 34.1 H (27.0-32.0) pg MCHC 32.6 (31.0-37.0) g/dL RDW Std Deviation 51.7 (28.0-62.0) fl RDW Coeff of Yasmani 14 (11.0-15.0) % Plt Count 237 (150-400) K/uL MPV 9.10 (7.40-12.00) fL Add Manual Diff YES Neutrophils % (Manual) 74 (48.0-80.0) % Band Neutrophils % 7 % Lymphocytes % (Manual) 9 L (16.0-40.0) % Monocytes % (Manual) 4 (0.0-15.0) % Eosinophils % (Manual) 5 (0.0-7.0) % Basophils % (Manual) 1 (0.0-1.5) % Nucleated RBC % 0.0 /100WBC Absolute Seg Neuts 12.5 Band Neutrophils # 1.2 Lymphocytes # (Manual) 1.5 Monocytes # (Manual) 0.7 Eosinophils # (Manual) 0.8 Basophils # (Manual) 0 Nucleated RBCs # 0 K/uL Sodium 135 L (136-146) mmol/L Potassium 4.1 (3.5-5.1) mmol/L Chloride 106 (98-110) mmol/L Carbon Dioxide 23 (21-31) mmol/L BUN 8 (6.0-23.0) mg/dL Creatinine 0.6 (0.6-1.5) mg/dL Est Cr Clr Drug Dosing TNP Estimated GFR (MDRD) > 60.0 ml/min Glucose 92 (60-110) mg/dL Hemoglobin A1c 6.6 H (0.0-6.0) % Calcium 7.9 L (8.8-10.8) mg/dL Total Bilirubin 0.8 (0.1-1.5) mg/dL AST 31 (5-40) IU/L ALT 95 H (8-54) IU/L Alkaline Phosphatase 124 (40-150) Total Protein 6.2 (6.0-8.0) g/dL Albumin 2.7 L (3.4-4.8) g/dL Globulin 3.5 (2.0-3.5) g/dL Albumin/Globulin Ratio 0.8 L (1.3-2.8) Lipase 98 H (7-80) U/L Result Diagrams: 04/22/17 05:17 04/22/17 05:17 Consult PN Assessment/Plan Procedures: Procedures COMPLETE CBC W/AUTO DIFF WBC (04/25/15) COMPREHEN METABOLIC PANEL (04/25/15) EMERGENCY DEPT VISIT (04/25/15) ROUTINE VENIPUNCTURE (04/25/15) THER/PROPH/DIAG INJ SC/IM (04/25/15) URINALYSIS AUTO W/SCOPE (04/25/15) (1) Cholelithiasis SNOMED Code(s): 335778538 Code(s): K80.20 - CALCULUS OF GALLBLADDER W/O CHOLECYSTITIS W/O OBSTRUCTION Priority: Medium Current Visit: Yes Qualifiers: Cholelithiasis location: gallbladder (2) Acute pancreatitis SNOMED Code(s): 868522843 Code(s): K85.90 - ACUTE PANCREATITIS WITHOUT NECROSIS OR INFECTION, UNSP Priority: High Current Visit: Yes Qualifiers: Pancreatitis type: biliary Acute pancreatitis complication: no infection or necrosis Qualified Code(s): K85.10 - Biliary acute pancreatitis without necrosis or infection (3) DM2 (diabetes mellitus, type 2) SNOMED Code(s): 58077681 Code(s): E11.9 - TYPE 2 DIABETES MELLITUS WITHOUT COMPLICATIONS Priority: High Current Visit: Yes Comment: Hemoglobin A1c 6.6%. Qualifiers: Diabetes mellitus complication status: without complication Diabetes mellitus terminal manager insulin use: without retirement use Qualified Code(s): E11.9 - Type 2 diabetes mellitus without complications (4) Obesity SNOMED Code(s): 117281220 Code(s): E66.9 - OBESITY, UNSPECIFIED Current Visit: No Qualifiers: Obesity classification: adult class 3 (BMI >= 40) Body mass index: BMI 40.0 -44.9 (5) UTI (urinary tract infection) SNOMED Code(s): 78781423 Code(s): N39.0 - URINARY TRACT INFECTION, SITE NOT SPECIFIED Current Visit : No Problem List Initiated/Reviewed/Updated: Yes Plan: Given the patient has been "symptomatic" for 2 1/2 weeks and still has a significant leucocytosis w/ left shift, I would favor conservative management with interval cholecystectomy in 4-6 weeks. Would like his UTI to be resolved. He will need to stay on a low-fat diet and avoid pork and pork products. He has at increased age given his morbid obesity and currently has an increased risk for an open cholecystectomy.
[2017-04-22] MEDS: Insulin Aspart 100 Units/ML 3 ML Pen SUBCUT SCH (17:42)
[2017-04-22] MEDS: Enoxaparin 40 MG/0.4 ML Syringe SUBCUT SCH (18:00)
[2017-04-23] MEDS: Sodium Chloride 0.9% 1,000 ML IV SCH ×2 (03:56→08:48)
[2017-04-23 06:33] LABS: CHLORIDE,CL 107 mmol/L (98-110); SODIUM,NA 137 mmol/L (136-146)
[2017-04-23] MEDS: oxyCODONE 5 MG Tab PO PRN (07:38)
[2017-04-23] MEDS: Ciprofloxacin in D5W 400 MG in Premix Bag 1 BAG IV SCH ×2 (07:39)
[2017-04-23] MEDS: Insulin Aspart 100 Units/ML 3 ML Pen SUBCUT SCH ×2 (07:48→11:59)
[2017-04-23] MEDS: Bisacodyl 5 MG Tab PO SCH (08:48)
--- NOTE | 2017-04-23 09:08 | PCM.PN ---
- General Info Date of Service: 04/23/17 Subjective Update: tolerating liquids. Does not feel ready to go home. His abdominal pain is improving. Functional Status: Reports: Pain Controlled - Review of Systems General: Reports: No Symptoms HEENT: Reports: No Symptoms Pulmonary: Reports: No Symptoms Cardiovascular: Reports: No Symptoms Gastrointestinal: Reports: Abdominal Pain (improving) Genitourinary: Reports: No Symptoms Musculoskeletal: Reports: No Symptoms Skin: Reports: No Symptoms Neurological: Reports: No Symptoms Psychiatric: Reports: No Symptoms - Patient Data Vitals - most recent: Last Vital Signs Temp 97.5 F 04/23/17 07:00 Pulse 76 04/23/17 07:00 Resp 20 04/23/17 07:00 BP 122/65 04/23/17 07:00 Pulse Ox 90 L 04/23/17 07:00 Weight - most recent: 149.685 kg I&O - last 24 hours: Intake & Output 04/22/17 04/23/17 04/23/17 22:59 06:59 14:59 Intake Total 3714 1749 Output Total 1415 350 Balance 2299 1399 Lab Results last 24 hrs: Laboratory Results - last 24 hr 04/22/17 04/22/17 04/23/17 Range/Units 16:34 21:21 05:47 WBC 13.13 H (4.0-11.0) K/uL RBC 3.35 L (4.50-5.90) M/uL Hgb 11.5 L (13.0-17.0) g/dL Hct 35.2 L (38.0-50.0) % MCV 105.1 H (80.0-98.0) fL MCH 34.3 H (27.0-32.0) pg MCHC 32.7 (31.0-37.0) g/dL RDW Std Deviation 52.5 (28.0-62.0) fl RDW Coeff of Yasmani 14 (11.0-15.0) % Plt Count 223 (150-400) K/uL MPV 9.10 (7.40-12.00) fL Add Manual Diff YES Neutrophils % (Manual) 76 (48.0-80.0) % Band Neutrophils % 4 % Lymphocytes % (Manual) 10 L (16.0-40.0) % Monocytes % (Manual) 6 (0.0-15.0) % Eosinophils % (Manual) 3 (0.0-7.0) % Basophils % (Manual) 1 (0.0-1.5) % Nucleated RBC % 0.0 /100WBC Absolute Seg Neuts 10.0 Band Neutrophils # 0.5 Lymphocytes # (Manual) 1.3 Monocytes # (Manual) 0.8 Eosinophils # (Manual) 0.4 Basophils # (Manual) 0 Nucleated RBCs # 0 K/uL Sodium (136-146) mmol/L Potassium (3.5-5.1) mmol/L Chloride (98-110) mmol/L Carbon Dioxide (21-31) mmol/L BUN (6.0-23.0) mg/dL Creatinine (0.6-1.5) mg/dL Est Cr Clr Drug Dosing Estimated GFR (MDRD) ml/min Glucose (60-110) mg/dL POC Glucose 114 H 120 H (60-110) mg/dL Calcium (8.8-10.8) mg/dL Lipase (7-80) U/L 04/23/17 Range/Units 05:47 WBC (4.0-11.0) K/uL RBC (4.50-5.90) M/uL Hgb (13.0-17.0) g/dL Hct (38.0-50.0) % MCV (80.0-98.0) fL MCH (27.0-32.0) pg MCHC (31.0-37.0) g/dL RDW Std Deviation (28.0-62.0) fl RDW Coeff of Yasmani (11.0-15.0) % Plt Count (150-400) K/uL MPV (7.40-12.00) fL Add Manual Diff Neutrophils % (Manual) (48.0-80.0) % Band Neutrophils % % Lymphocytes % (Manual) (16.0-40.0) % Monocytes % (Manual) (0.0-15.0) % Eosinophils % (Manual) (0.0-7.0) % Basophils % (Manual) (0.0-1.5) % Nucleated RBC % /100WBC Absolute Seg Neuts Band Neutrophils # Lymphocytes # (Manual) Monocytes # (Manual) Eosinophils # (Manual) Basophils # (Manual) Nucleated RBCs # K/uL Sodium 137 (136-146) mmol/L Potassium 4.0 (3.5-5.1) mmol/L Chloride 107 (98-110) mmol/L Carbon Dioxide 24 (21-31) mmol/L BUN 7 (6.0-23.0) mg/dL Creatinine 0.6 (0.6-1.5) mg/dL Est Cr Clr Drug Dosing TNP Estimated GFR (MDRD) > 60.0 ml/min Glucose 121 H (60-110) mg/dL POC Glucose (60-110) mg/dL Calcium 7.7 L (8.8-10.8) mg/dL Lipase 58 (7-80) U/L Med Orders - Current: Current Medications Bisacodyl (Dulcolax) 10 mg PO DAILY [facility] Last Admin: 04/23/17 08:48 Dose: 10 mg Clotrimazole (Lotrimin Af 1% Crm) 1 gm TOP BID [facility] Last Admin: 04/22/17 20:08 Dose: 1 gm Enoxaparin Sodium (Lovenox) 40 mg SUBCUT Q24H [facility] Last Admin: 04/22/17 18:00 Dose: 40 mg Hydromorphone HCl (Dilaudid) 1 mg IVPUSH Q2H PRN PRN Reason: Pain (severe 7-10) Ciprofloxacin/Dextrose 400 mg/ (Premix) 200 mls @ 200 mls/hr IV Q12H [facility] Last Admin: 04/23/17 07:39 Dose: 200 mls/hr Sodium Chloride (Normal Saline) 1,000 mls @ 200 mls/hr IV ASDIRECTED [facility] Last Admin: 04/23/17 08:48 Dose: 200 mls/hr Insulin Aspart (Novolog) 0 unit SUBCUT TIDAC [facility] PRN Reason: Protocol Last Admin: 04/23/17 07:48 Dose: Not Given Ondansetron HCl (Zofran) 4 mg IVPUSH Q4H PRN PRN Reason: Pain Last Admin: 04/22/17 03:45 Dose: 4 mg Oxycodone HCl (Oxycodone) 10 mg PO Q4H PRN PRN Reason: Abdominal Pain Last Admin: 04/23/17 07:38 Dose: 10 mg Sodium Chloride (Saline Flush) 10 ml FLUSH ASDIRECTED PRN PRN Reason: Keep Vein Open Last Admin: 04/20/17 14:34 Dose: 10 ml Sodium Chloride (Saline Flush) 2.5 ml FLUSH ASDIRECTED PRN PRN Reason: Keep Vein Open Last Admin: 04/20/17 14:34 Dose: 2.5 ml Temazepam (Restoril) 15 mg PO BEDTIME PRN PRN Reason: Agitation Discontinued Medications Acetaminophen (Tylenol) 650 mg PO Q4H PRN PRN Reason: Pain (Mild 1-3)/fever Sodium Chloride (Normal Saline) 1,000 mls @ 999 mls/hr IV .Bolus ONE Stop: 04/20/17 18:08 Last Admin: 04/20/17 17:11 Dose: 999 mls/hr Sodium Chloride (Normal Saline) 1,000 mls @ 500 mls/hr IV ASDIRECTED VÍCTOR Stop: 04/21/17 19:44 Last Admin: 04/20/17 21:36 Dose: 500 mls/hr Levofloxacin/Dextrose 750 mg/ (Premix) 150 mls @ 100 mls/hr IV Q24H [facility] Last Admin: 04/20/17 19:31 Dose: Not Given Iopamidol (Isovue Multipack-370 (76%)) 100 ml IVPUSH ONETIME STA Stop: 04/20/17 16:17 Last Admin: 04/20/17 16:37 Dose: 100 ml - Exam General: alert, oriented HEENT: Pupils equal, EOMI Neck: supple Lungs: Clear to Auscultation, Normal Respiratory Effort Cardiovascular: Regular Rate, Regular Rhythm GI/Abdominal Exam: Normal Bowel Sounds, Soft, Tender (RUQ) Back Exam: Normal Inspection Extremities: Normal Inspection Skin: warm, dry, intact Neurological: no new focal deficit Psy/Mental Status: alert, normal affect, normal mood - Problem List Review Problem List Initiated/Reviewed/Updated: Yes - Plan Plan:: 67 yo male admitted gallstone pancreatitis. NPO except ice chips and meds IVF at 500ml/hr consider surgical consult for cholelithiasis. No evidence of pseudocyst or necrosis : no indication of antibiotics at this time. Pain: Dilaudid prn constipation: dulcolax April 21, 2017: The patient is a 67-year-old gentleman who is admitted through the emergency department secondary to acute pancreatitis. Patient also has a history of diverticulosis as well. The patient was admitted primarily for pain control, IV fluids and bowel rest. The patient today says that he is doing much better. He has had some bowel movements. The patient also says that his pain is much better controlled and it has been located primarily in the epigastrium. The patient has denied any shortness of breath or nausea and vomiting at this time. The patient has reported that he likely needs to have his gallbladder removed soon. They the patient's lipase has improved from 1039 down to 287. Overall the patient says that he is doing much better today. Patient's ALT and AST were also noted to be elevated at 169 at 252 respectively. Alkaline phosphatases also elevated and these will be monitored. Given that the patient' s pancreatitis secondary to cholelithiasis as it has been reported that the patient does have gallstones on CT scan. Patient will be continued on his medication currently and I've also elected to continue the patient on the antibiotics as his white blood cell count has been trending down. The patient initial white blood cell count was 19,000 and is now trended down to 18,000. He is currently having IV ciprofloxacin and this will be continued. The patient will also have his CBC and comp intensive metabolic panel ordered in the morning. The patient's treatment plan will be adjusted accordingly. He is to continue on the Lovenox for DVT prophylaxis and hydromorphone for pain. The patient will be continued to be fluid resuscitated. April 22, 2017: The patient is a 67-year-old gentleman who had been admitted to the emergency department after being [facility] by the [facility] secondary to chest pain. The patient denied having any chest pain. CT scan which was obtained on 20 April 2017 showed pancreatic inflammation with cholelithiasis. The patient denied alcohol use. Patient today is doing better, his pain is controlled and he has denied any nausea or vomiting. The patient has been previously on nothing by mouth/ice chips. The patient's hemoglobin A1c today is 6.6%. The patient's ALT and AST have dropped to 31 and 95 respectively. His alkaline phosphatase is also normalized. The patient's lipase is down to 98 L per unit. I have talked and discussed the case with surgeon, Dr. June, for evaluation of cholelithiasis. I've also advance the patient's diet to clear liquid diet. The patient's blood sugars will continue to be monitored for any episodes of hyperglycemia. I've encouraged the patient ambulate. The patient may likely be appropriate for discharge tomorrow with further recommendations to follow. April 23, 2017 Gallstone pancreatitis: improving lipase is normal advaced to ada diet: he is borderline diabetic on IVF NS at 200ml/hr: consider saline lock once tolerating diet. UTI: urine culture has mixed gifty >100, 000. on IV cipro. WBC trending down constipation: will add colace to dulcolax anticipate discharge today or tomorrow.
[2017-04-23] MEDS: Clotrimazole 1% Crm 30 GM Tube TOP SCH (09:43)
[2017-04-23] MEDS ORDERED: Docusate Sodium 100 MG Cap PO SCH (10:30)
--- NOTE | 2017-04-23 11:26 | CR ---
EXAM DATE: 04/20/17 PATIENT'S AGE: 67 Patient: BILLY LAZCANO Facility: [place], [place] Site . Site : 1950 Study: XRay Chest [id number]/21/2017 3:08:23 PM Ordering Physician: Jono Houser Final Report: Indication: Pain, shortness of breath Technique: Chest 1 view Comparison: None Findings/Impression: Lung volumes are low which accentuate the cardiac size and vascular markings. No focal consolidation, effusion, or pneumothorax. Osseous structures are intact. Dictated by Reina Sheehan MD @ Apr 20 2017 3:10PM (Electronic Signature) Report Signed by Proxy. WILLIS
--- NOTE | 2017-04-23 11:35 | CT ---
EXAM DATE: 04/20/17 PATIENT'S AGE: 67 Patient: BILLY LAZCANO Facility: [place], [place] Site . Site : 1950 Study: CT Abdomen/Pelvis [id number]/21/2017 4:37:02 PM Ordering Physician: Jono Houser Final Report: INDICATION: Abdominal pain, leukocytosis TECHNIQUE: CT abdomen and pelvis without contrast. COMPARISON: None FINDINGS: Lower chest: Unremarkable. Liver: Unremarkable. Spleen: Unremarkable. Pancreas: Peripancreatic fat stranding. No large peripancreatic fluid collection seen within the confines of the noncontrast exam. Gallbladder and bile ducts: Cholelithiasis. Adrenal glands: Unremarkable. Kidneys: Unremarkable. No kidney or ureteral stones and no hydronephrosis. GI tract: Minimal colonic diverticulosis. Appendix is not visualized. Vascular structures: Unremarkable. Lymph nodes: Unremarkable. Miscellaneous: Trace amount of free fluid in the pelvis. Pelvic Organs: Unremarkable. Bones: Unremarkable for age. IMPRESSION: Acute pancreatitis. No peripancreatic fluid collections seen within the confines of a noncontrast exam. Cholelithiasis. Minimal colonic diverticulosis. Please note that all CT scans at this facility use dose modulation, iterative reconstruction, and/or weight-based dosing when appropriate to reduce radiation dose to as low as reasonably achievable. Dictated by Reina Sheehan MD @ Apr 20 2017 4:41PM ----- ADDENDUM ----- Addendum: Please note that the study was completed with 100 cc Isovue-370 intravenous contrast. Impression #1 should read as follows: " Acute pancreatitis. No peripancreatic fluid collection seen. " Dictated by Reina Sheehan MD @ Apr 20 2017 5:09PM (Electronic Signature) Report Signed by Proxy. [email or web address]
[2017-04-23 13:02] VITALS: BP 131/75
--- NOTE | 2017-04-23 14:08 | PCM.DCSUM1 ---
<Honey Navarro - Last Filed: 04/23/17 14:12> Discharge Summary - Hospital Course Free Text/Narrative:: 7 yo otherwise healthy male admitted for gallstone pancreatitis. He was having intermittent abdominal pain x 2 weeks. Per patient He was seen in [place] and was tod he had constipation and was told take OTC medications.He states he had somewhat relief and his stools were regulated. Yesterday he had abdominal pain, nausea and vomiting. He noticed he did not have a bowel movement . His n/v persisted. He does not have chest pain, heartburn, palpitations, diarrhea, hematemesis, or other pertinent symptoms. In the ED, VSS. He had elevated LFT, Total bilirubin, lipase in 1000. Lactate was wnl. EKG negative for acute ST or T wave changes. Abdominal CT showed acute pancreatitis, cholethiasis, diverticulosis. He does not have any other medical conditions such as HTN, DM, CAD. He does not drink ETOH, smoke cigarettes or use illicit drugs. During hospitilization he was kept NPO, given IVF, pain control with diluadid. UA showed UTI. He was treated with I.V cipro. His symptoms and labs improved. Urine culture showed >100,000 mixed gifty. General surgery was consulted. Since he has been "symptomatic" for 2 1/2 weeks and still has a significant leucocytosis w/ left shift, surgery recommended conservative management with interval cholecystectomy in 4-6 weeks. He was found to be borderline diabetic HBA1c 6.6. He was placed on ADA diet. He was able to tolerate it. He was discharged with cipro 500 bid x 7 days for UTI and oxycodone along with senna. He will need to stay on a low-fat diet and avoid pork and pork products. He has at increased age given his morbid obesity and currently has an increased risk for an open cholecystectomy. He is to follow up with [place] hospital and Dr. June - Discharge Data Discharge Date: 04/23/17 Discharge Disposition: Home, Self-Care 01 Condition: Good - Patient Summary/Data Consults: Consultations 04/22/17 09:54 Consult to Physician [CONS] Routine - Patient Instructions Diet: Diabetic Diet Activity: As Tolerated Driving: Do Not Drive Showering/Bathing: May Shower Notify Provider of: Fever, Increased Pain, Swelling and Redness, Drainage, Nausea and/or Vomiting - Discharge Plan Prescriptions/Med Rec: Ciprofloxacin HCl [Cipro] 500 mg PO BID #14 tablet Sennosides/Docusate Sodium [Senna S Tablet] 1 each PO BEDTIME #20 tablet oxyCODONE 10 mg PO Q4H #20 tablet Home Medications: Home Meds Ciprofloxacin HCl [Cipro] 500 mg PO BID #14 tablet 04/23/17 [Rx] Sennosides/Docusate Sodium [Senna S Tablet] 1 each PO BEDTIME #20 tablet [Rx] oxyCODONE 10 mg PO Q4H #20 tablet 04/23/17 [Rx] Patient Handouts: Type 2 Diabetes Mellitus, Adult, Senna tablets or capsules, Oxycodone tablets or capsules, Ciprofloxacin tablets, Acute Pancreatitis Referrals: [place] [facility] [Outside] - General Info Date of Service: 04/23/17 Functional Status: Reports: Pain Controlled, Tolerating Diet - Review of Systems General: Reports: No Symptoms HEENT: Reports: No Symptoms Pulmonary: Reports: No Symptoms Cardiovascular: Reports: No Symptoms Gastrointestinal: Reports: No Symptoms Genitourinary: Reports: No Symptoms Musculoskeletal: Reports: No Symptoms Skin: Reports: No Symptoms Neurological: Reports: No Symptoms Psychiatric: Reports: No Symptoms - Patient Data Vitals - Most Recent: Last Vital Signs Temp 97.2 F 04/23/17 11:00 Pulse 64 04/23/17 11:00 Resp 18 04/23/17 11:00 BP 131/75 04/23/17 11:00 Pulse Ox 92 L 04/23/17 11:00 Weight - Most Recent: 149.685 kg I&O - Last 24 hours: Intake & Output 04/22/17 04/23/17 04/23/17 22:59 06:59 14:59 Intake Total 3714 1749 1200 Output Total 1415 350 Balance 2299 1399 1200 Lab Results - Last 24 hrs: Laboratory Results - last 24 hr 04/22/17 04/22/17 04/23/17 Range/Units 16:34 21:21 05:47 WBC 13.13 H (4.0-11.0) K/uL RBC 3.35 L (4.50-5.90) M/uL Hgb 11.5 L (13.0-17.0) g/dL Hct 35.2 L (38.0-50.0) % MCV 105.1 H (80.0-98.0) fL MCH 34.3 H (27.0-32.0) pg MCHC 32.7 (31.0-37.0) g/dL RDW Std Deviation 52.5 (28.0-62.0) fl RDW Coeff of Yasmani 14 (11.0-15.0) % Plt Count 223 (150-400) K/uL MPV 9.10 (7.40-12.00) fL Add Manual Diff YES Neutrophils % (Manual) 76 (48.0-80.0) % Band Neutrophils % 4 % Lymphocytes % (Manual) 10 L (16.0-40.0) % Monocytes % (Manual) 6 (0.0-15.0) % Eosinophils % (Manual) 3 (0.0-7.0) % Basophils % (Manual) 1 (0.0-1.5) % Nucleated RBC % 0.0 /100WBC Absolute Seg Neuts 10.0 Band Neutrophils # 0.5 Lymphocytes # (Manual) 1.3 Monocytes # (Manual) 0.8 Eosinophils # (Manual) 0.4 Basophils # (Manual) 0 Nucleated RBCs # 0 K/uL Sodium (136-146) mmol/L Potassium (3.5-5.1) mmol/L Chloride (98-110) mmol/L Carbon Dioxide (21-31) mmol/L BUN (6.0-23.0) mg/dL Creatinine (0.6-1.5) mg/dL Est Cr Clr Drug Dosing Estimated GFR (MDRD) ml/min Glucose (60-110) mg/dL POC Glucose 114 H 120 H (60-110) mg/dL Calcium (8.8-10.8) mg/dL Lipase (7-80) U/L 04/23/17 04/23/17 04/23/17 Range/Units 05:47 07:04 11:44 WBC (4.0-11.0) K/uL RBC (4.50-5.90) M/uL Hgb (13.0-17.0) g/dL Hct (38.0-50.0) % MCV (80.0-98.0) fL MCH (27.0-32.0) pg MCHC (31.0-37.0) g/dL RDW Std Deviation (28.0-62.0) fl RDW Coeff of Yasmani (11.0-15.0) % Plt Count (150-400) K/uL MPV (7.40-12.00) fL Add Manual Diff Neutrophils % (Manual) (48.0-80.0) % Band Neutrophils % % Lymphocytes % (Manual) (16.0-40.0) % Monocytes % (Manual) (0.0-15.0) % Eosinophils % (Manual) (0.0-7.0) % Basophils % (Manual) (0.0-1.5) % Nucleated RBC % /100WBC Absolute Seg Neuts Band Neutrophils # Lymphocytes # (Manual) Monocytes # (Manual) Eosinophils # (Manual) Basophils # (Manual) Nucleated RBCs # K/uL Sodium 137 (136-146) mmol/L Potassium 4.0 (3.5-5.1) mmol/L Chloride 107 (98-110) mmol/L Carbon Dioxide 24 (21-31) mmol/L BUN 7 (6.0-23.0) mg/dL Creatinine 0.6 (0.6-1.5) mg/dL Est Cr Clr Drug Dosing TNP Estimated GFR (MDRD) > 60.0 ml/min Glucose 121 H (60-110) mg/dL POC Glucose 123 H 112 H (60-110) mg/dL Calcium 7.7 L (8.8-10.8) mg/dL Lipase 58 (7-80) U/L Med Orders - Current: Current Medications Bisacodyl (Dulcolax) 10 mg PO DAILY [facility] Last Admin: 04/23/17 08:48 Dose: 10 mg Clotrimazole (Lotrimin Af 1% Crm) 1 gm TOP BID [facility] Last Admin: 04/23/17 09:43 Dose: 1 applic Docusate Sodium (Colace) 100 mg PO BID [facility] Last Admin: 04/23/17 11:29 Dose: 100 mg Hydromorphone HCl (Dilaudid) 1 mg IVPUSH Q2H PRN PRN Reason: Pain (severe 7-10) Ciprofloxacin/Dextrose 400 mg/ (Premix) 200 mls @ 200 mls/hr IV Q12H [facility] Last Admin: 04/23/17 07:39 Dose: 200 mls/hr Sodium Chloride (Normal Saline) 1,000 mls @ 200 mls/hr IV ASDIRECTED [facility]ÍCTOR Last Admin: 04/23/17 08:48 Dose: 200 mls/hr Insulin Aspart (Novolog) 0 unit SUBCUT TIDAC VÍCTOR PRN Reason: Protocol Last Admin: 04/23/17 11:59 Dose: Not Given Ondansetron HCl (Zofran) 4 mg IVPUSH Q4H PRN PRN Reason: Pain Last Admin: 04/22/17 03:45 Dose: 4 mg Oxycodone HCl (Oxycodone) 10 mg PO Q4H PRN PRN Reason: Abdominal Pain Last Admin: 04/23/17 07:38 Dose: 10 mg Sodium Chloride (Saline Flush) 10 ml FLUSH ASDIRECTED PRN PRN Reason: Keep Vein Open Last Admin: 04/20/17 14:34 Dose: 10 ml Sodium Chloride (Saline Flush) 2.5 ml FLUSH ASDIRECTED PRN PRN Reason: Keep Vein Open Last Admin: 04/20/17 14:34 Dose: 2.5 ml Temazepam (Restoril) 15 mg PO BEDTIME PRN PRN Reason: Agitation Discontinued Medications Acetaminophen (Tylenol) 650 mg PO Q4H PRN PRN Reason: Pain (Mild 1-3)/fever Enoxaparin Sodium (Lovenox) 40 mg SUBCUT Q24H [facility] Last Admin: 04/22/17 18:00 Dose: 40 mg Sodium Chloride (Normal Saline) 1,000 mls @ 999 mls/hr IV .Bolus ONE Stop: 04/20/17 18:08 Last Admin: 04/20/17 17:11 Dose: 999 mls/hr Sodium Chloride (Normal Saline) 1,000 mls @ 500 mls/hr IV ASDIRECTED VÍCTOR Stop: 04/21/17 19:44 Last Admin: 04/20/17 21:36 Dose: 500 mls/hr Levofloxacin/Dextrose 750 mg/ (Premix) 150 mls @ 100 mls/hr IV Q24H [facility] Last Admin: 04/20/17 19:31 Dose: Not Given Iopamidol (Isovue Multipack-370 (76%)) 100 ml IVPUSH ONETIME STA Stop: 04/20/17 16:17 Last Admin: 04/20/17 16:37 Dose: 100 ml - Exam General: Reports: Alert, Oriented HEENT: Reports: Pupils Equal, EOMI Neck: Reports: Supple, Trachea Midline Lungs: Reports: Clear to Auscultation, Normal Respiratory Effort Cardiovascular: Reports: Regular Rate, Regular Rhythm GI/Abdominal Exam: Normal Bowel Sounds, Tender (RUQ) Back Exam: Reports: Normal Inspection Extremities: Normal Inspection Skin: Reports: Warm, Dry, Intact Neurological: Reports: No New Focal Deficit Psy/Mental Status: Reports: Alert, Normal Affect, Normal Mood *Q Meaningful Use (DIS) - VTE *Q VTE Criteria *Q: - Stroke *Q Stroke Criteria *Q: - AMI *Q AMI Criteria *Q: <Richard Greene - Last Filed: 04/24/17 14:30> Discharge Summary - Hospital Course Free Text/Narrative:: I was present with the resident during history and examination. I discussed the case with the resident and agree with the findings and plan as documented in the residents note. - Discharge Diagnosis/Problem(s) (1) Acute pancreatitis SNOMED Code(s): 311375549 ICD Code: K85.90 - ACUTE PANCREATITIS WITHOUT NECROSIS OR INFECTION, UNSP Status: Acute Priority: High Qualifiers: Pancreatitis type: biliary Acute pancreatitis complication: no infection or necrosis Qualified Code(s): K85.10 - Biliary acute pancreatitis without necrosis or infection (2) Transaminitis SNOMED Code(s): 389976575 ICD Code: R74.0 - NONSPEC ELEV OF LEVELS OF TRANSAMNS & LACTIC ACID DEHYDRGNSE Status: Resolved Priority: High (3) Diverticulosis SNOMED Code(s): 995820723 ICD Code: K57.90 - DVRTCLOS OF INTEST, PART UNSP, W/O PERF OR ABSCESS W/O BLEED Status: Chronic Priority: Medium Qualifiers: Diverticulosis site: diverticulosis of large intestine Diverticulosis bleeding: diverticulosis without bleeding Qualified Code(s): K57.30 - Diverticulosis of large intestine without perforation or abscess without bleeding (4) DM2 (diabetes mellitus, type 2) SNOMED Code(s): 75100331 ICD Code: E11.9 - TYPE 2 DIABETES MELLITUS WITHOUT COMPLICATIONS Status: Chronic Priority: High Problem Details: Hemoglobin A1c 6.6%. Qualifiers: Diabetes mellitus complication status: without complication Diabetes mellitus longterm insulin use: without middle or intermediate school principal use Qualified Code(s): E11.9 - Type 2 diabetes mellitus without complications - Patient Summary/Data Consults: Consultations 04/22/17 09:54 Consult to Physician [CONS] Routine - Patient Data Vitals - Most Recent: Last Vital Signs Temp 36.2 C 04/23/17 11:00 Pulse 64 04/23/17 11:00 Resp 18 04/23/17 11:00 BP 131/75 04/23/17 11:00 Pulse Ox 92 L 04/23/17 11:00 Med Orders - Current: Current Medications Discontinued Medications Acetaminophen (Tylenol) 650 mg PO Q4H PRN PRN Reason: Pain (Mild 1-3)/fever Bisacodyl (Dulcolax) 10 mg PO DAILY [facility] Last Admin: 04/23/17 08:48 Dose: 10 mg Clotrimazole (Lotrimin Af 1% Crm) 1 gm TOP BID [facility] Last Admin: 04/23/17 09:43 Dose: 1 applic Docusate Sodium (Colace) 100 mg PO BID [facility] Last Admin: 04/23/17 11:29 Dose: 100 mg Enoxaparin Sodium (Lovenox) 40 mg SUBCUT Q24H [facility] Last Admin: 04/22/17 18:00 Dose: 40 mg Hydromorphone HCl (Dilaudid) 1 mg IVPUSH Q2H PRN PRN Reason: Pain (severe 7-10) Sodium Chloride (Normal Saline) 1,000 mls @ 999 mls/hr IV .Bolus ONE Stop: 04/20/17 18:08 Last Admin: 04/20/17 17:11 Dose: 999 mls/hr Sodium Chloride (Normal Saline) 1,000 mls @ 500 mls/hr IV ASDIRECTED [facility] Stop: 04/21/17 19:44 Last Admin: 04/20/17 21:36 Dose: 500 mls/hr Levofloxacin/Dextrose 750 mg/ (Premix) 150 mls @ 100 mls/hr IV Q24H [facility] Last Admin: 04/20/17 19:31 Dose: Not Given Ciprofloxacin/Dextrose 400 mg/ (Premix) 200 mls @ 200 mls/hr IV Q12H [facility] Last Admin: 04/23/17 07:39 Dose: 200 mls/hr Sodium Chloride (Normal Saline) 1,000 mls @ 200 mls/hr IV ASDIRECTED [facility] Last Admin: 04/23/17 08:48 Dose: 200 mls/hr Insulin Aspart (Novolog) 0 unit SUBCUT TIDAC [facility] PRN Reason: Protocol Last Admin: 04/23/17 11:59 Dose: Not Given Iopamidol (Isovue Multipack-370 (76%)) 100 ml IVPUSH ONETIME STA Stop: 04/20/17 16:17 Last Admin: 04/20/17 16:37 Dose: 100 ml Ondansetron HCl (Zofran) 4 mg IVPUSH Q4H PRN PRN Reason: Pain Last Admin: 04/22/17 03:45 Dose: 4 mg Oxycodone HCl (Oxycodone) 10 mg PO Q4H PRN PRN Reason: Abdominal Pain Last Admin: 04/23/17 07:38 Dose: 10 mg Sodium Chloride (Saline Flush) 10 ml FLUSH ASDIRECTED PRN PRN Reason: Keep Vein Open Last Admin: 04/20/17 14:34 Dose: 10 ml Sodium Chloride (Saline Flush) 2.5 ml FLUSH ASDIRECTED PRN PRN Reason: Keep Vein Open Last Admin: 04/20/17 14:34 Dose: 2.5 ml Temazepam (Restoril) 15 mg PO BEDTIME PRN PRN Reason: Agitation *Q Meaningful Use (DIS) - VTE *Q VTE Criteria *Q: - Stroke *Q Stroke Criteria *Q: - AMI *Q AMI Criteria *Q:
== END 2017-04-23 14:18 | disposition home or self-care (01) | DRG 439 ==
LOC: MW.ED 14:08 → MW.MS 17:38
PROVIDERS: ADMIT Internal Medicine; ATTEND Internal Medicine
DX: K85.10 Biliary acute pancreatitis without necrosis or infection (principal); N39.0 Urinary tract infection, site not specified; Z68.41 Body mass index [BMI] 40.0-44.9, adult; K80.20 Calculus of gallbladder without cholecystitis without obstruction; E66.01 Morbid (severe) obesity due to excess calories; E11.9 Type 2 diabetes mellitus without complications
CPT/HCPCS: 36415; 71010; 71010-26; 74177; 74177-26; 80048; 80053; 80061; 81001; 82962; 83036; 83605; 83690; 83735; 83880; 84100; 84484; 85025; 87086; 93005; 96360; 99285; 99285-25; A9270-GY; J0744; J1650; J2405; J7040; J7050; Q9967

== ENCOUNTER 2017-08-09 16:46 | Inpatient (IN) | payer OTHER ==
--- NOTE | 2017-08-09 17:02 | EDM.PDOC ---
ED HPI GENERAL MEDICAL PROBLEM - General Chief Complaint: Skin Complaint Stated Complaint: PT HAS INFECTION ON LT LEG Time Seen by Provider: 08/09/17 16:48 Source of Information: Reports: Patient History Limitations: Reports: No Limitations - History of Present Illness INITIAL COMMENTS - FREE TEXT/NARRATIVE: HISTORY AND PHYSICAL: History of present illness: Patient is a 67-year-old male who presents to the emergency room today with complaints of "infection" to his testicle and left leg. He states that 2 days ago he started noticing some tenderness, redness and swelling in his testicles and over the past 2 days this has gone down to the left leg. He reports that he was getting labs done with Dr. Horton for "balance issues". He was told that his labs were normal but did show some protein in his urine. He went to the CT today for his complaints of testicular swelling and pain. They wanted him to be evaluated in the emergency room. Denies any numbness or tingling to his lower extremities. States he is able to void without difficulty. Bowel movements are regular. Past medical history of diabetes type 2, Review of systems: As per history of present illness and below otherwise all systems reviewed and negative. Past medical history: As per history of present illness and as reviewed below otherwise noncontributory. Surgical history: As per history of present illness and as reviewed below otherwise noncontributory. Social history: No reported history of drug or alcohol abuse. Family history: As per history of present illness and as reviewed below otherwise noncontributory. Physical exam: HEENT: Atraumatic, normocephalic, pupils reactive, negative for conjunctival pallor or scleral icterus, mucous membranes moist, throat clear, neck supple, nontender, trachea midline. Lungs: Clear to auscultation, breath sounds equal bilaterally, chest nontender. Heart: S1S2, regular rate and rythm Abdomen: Soft, obese, nondistended, nontender. Negative for masses or hepatosplenomegaly. Negative for costovertebral tenderness. Pelvis: Stable nontender. Genitourinary: See skin assessment. This was done with a cable assembler at bedside. Rectal: Deferred. Extremities: Atraumatic, negative for cords or calf pain. +2 pitting edema bilaterally. Neurovascular unremarkable. Skin: While assessing the scrotum, groin, and rectum there is no redness, tenderness, crepitus or lesions. There is a large area of mild erythema to the left medial thigh poorly demarcated margins. The left foot appears to have mild erythema that extends up into the ankle becomes less apparent but with blotchy red spots to the anterior espinoza. The areas of redness are warm to touch. +2 pitting edema noted. Strong capillary refill, less than 3 seconds. CMS intact. Neuro: Awake, alert, oriented. Cranial nerves II through XII unremarkable. Cerebellum unremarkable. Motor and sensory unremarkable throughout. Exam nonfocal. After physical assessment of the testicles/scrotum and left lower extremity it appears that the cellulitis originated in the left foot and went up the leg. There is no redness, swelling, crepitus or pain to the testicles, rectum or groin. This was also assessed by Dr. Platt, she agrees with this evaluation. The left lower extremity ultrasound is negative from the groin to knee. The certified control systems technician reports that there is too much swelling to the calf that he is unable to visualize the veins. Although the patient does have strong pedal pulses bilaterally. Dr. Ray was consulted on this case and he is agreeable to admit this patient for observation. He did come down to evaluate the patient prior to him going to the floor. He should agreeable to stay overnight. Family is at bedside. They deny any further questions at this time. Diagnostics: CBC, CMP, blood cultures 2, lactic acid, ultrasound Therapeutics: Vancomycin Impression: Cellulitis Plan: Observation admission to [facility] per Dr. Ray Definitive disposition and diagnosis as appropriate pending reevaluation and review of above. Duration: Day(s): Location: Reports: Lower Extremity, Left Left Leg Pain Score (Numeric/FACES): 4 - Related Data Allergies Allergy/AdvReac Type Severity Reaction Status Date / Time No Known Allergies Allergy Verified 08/09/17 16:54 Home Meds: Home Meds Latanoprost [Xalatan 0.005% Ophth Soln] 2.5 ml EYEBOTH BEDTIME 08/10/17 [History ] atorvaSTATin Calcium [Atorvastatin Calcium] 40 mg PO DAILY 08/10/17 [History] metFORMIN HCl [Metformin HCl] 500 mg PO TIDMEALS 08/10/17 [History] Past Medical History HEENT History: Reports: None Cardiovascular History: Reports: None Respiratory History: Reports: None Gastrointestinal History: Reports: Diverticulosis Genitourinary History: Reports: None Musculoskeletal History: Reports: None 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 DM - borderline Hematologic History: Reports: None Oncologic (Cancer) History: Reports: None Dermatologic History: Reports: None - Infectious Disease History Infectious Disease History: Reports: None - Past Surgical History GI Surgical History: Reports: Colonoscopy Other Musculoskeletal Surgeries/Procedures:: right finger surgery Social & Family History - Family History Family Medical History: Noncontributory Cardiac: Reports: Angina GI: Reports: Hiatal Hernia Neurological: Reports: MS Endocrine/Metabolic: Reports: Other (See Below) Other Endocrine/Metabolic Family History: DM type unknown Oncologic: Reports: Other (See Below) Other Oncologic Family History: Kidney - Tobacco Use Smoking Status *Q: Never Smoker - Caffeine Use Caffeine Use: Reports: Soda - Recreational Drug Use Recreational Drug Use: No ED ROS GENERAL - Review of Systems Review Of Systems: ROS reveals no pertinent complaints other than HPI. ED EXAM, SKIN/RASH Exam: See Below (See dictation) Course - Vital Signs Last Recorded V/S: Last Vital Signs Temp 36.2 C 08/10/17 08:00 Pulse 77 08/10/17 08:00 Resp 20 08/10/17 08:00 BP 97/46 L 08/10/17 08:00 Pulse Ox 94 L 08/10/17 08:00 - Orders/Labs/Meds Orders: Active Orders 24 hr Category Date Time Status Communication Order [RC] STAT Care 08/09/17 18:01 Active Oxygen Therapy [RC] PRN Care 08/09/17 20:22 Active VTE/DVT Education [RC] PER UNIT ROUTINE Care 08/09/17 20:22 Active Vital Signs [RC] Q4H Care 08/09/17 20:22 Active Foot 2V Lt [CR] Stat Exams 08/09/17 19:27 Taken Venous Doppler Lwr Ext Lt [US] Stat Exams 08/09/17 17:35 Taken CBC WITH AUTO DIFF [HEME] AM Lab 08/11/17 05:11 Ordered CULTURE BLOOD [BC] Stat Lab 08/09/17 17:27 Received CULTURE BLOOD [BC] Stat Lab 08/09/17 17:45 Received Acetaminophen [Tylenol] Med 08/09/17 20:22 Active 650 mg PO Q4H PRN Bisacodyl [Dulcolax] Med 08/09/17 20:22 Active 5 mg PO DAILY PRN Docusate Sodium [Colace] Med 08/09/17 20:22 Active 100 mg PO BID PRN Enoxaparin [Lovenox] Med 08/10/17 09:00 Active 40 mg SUBCUT DAILY Piperacillin/Tazobactam [Piperacil-Tazobact] 3.375 gm Med 08/09/17 21:00 Active Sodium Chloride 0.9% [Normal Saline] 50 ml IV Q6H Temazepam [Restoril] Med 08/09/17 20:22 Active 15 mg PO BEDTIME PRN Blood Culture x2 Reflex Set [OM.PC] Stat Oth 08/09/17 17:07 Ordered Resuscitation Status Routine Resus Stat 08/09/17 20:22 Ordered Medication Orders Acetaminophen (Tylenol) 650 mg PO Q4H PRN PRN Reason: Pain (Mild 1-3)/fever Bisacodyl (Dulcolax) 5 mg PO DAILY PRN PRN Reason: Constipation Docusate Sodium (Colace) 100 mg PO BID PRN PRN Reason: Constipation Enoxaparin Sodium (Lovenox) 40 mg SUBCUT DAILY [facility] Last Admin: 08/10/17 08:09 Dose: 40 mg Piperacillin Sod/Tazobactam (Sod 3.375 gm/ Sodium Chloride) 50 mls @ 100 mls/ hr IV Q6H [facility] Last Admin: 08/10/17 08:11 Dose: 100 mls/hr Infusion: 08/10/17 03:14 Dose: 100 mls/hr Admin: 08/10/17 02:44 Dose: 100 mls/hr Infusion: 08/09/17 22:29 Dose: 100 mls/hr Admin: 08/09/17 21:59 Dose: 100 mls/hr Insulin Aspart (Novolog) 0 unit SUBCUT TIDAC [facility] PRN Reason: Protocol Temazepam (Restoril) 15 mg PO BEDTIME PRN PRN Reason: Sleep Labs: Laboratory Tests 08/09/17 08/09/17 08/09/17 Range/Units 17:27 17:27 17:27 WBC 17.29 H (4.0-11.0) K/uL RBC 4.26 L (4.50-5.90) M/uL Hgb 14.6 (13.0-17.0) g/dL Hct 42.9 (38.0-50.0) % MCV 100.7 H (80.0-98.0) fL MCH 34.3 H (27.0-32.0) pg MCHC 34.0 (31.0-37.0) g/dL RDW Std Deviation 49.9 (28.0-62.0) fl RDW Coeff of Yasmani 14 (11.0-15.0) % Plt Count 215 (150-400) K/uL MPV 10.10 (7.40-12.00) fL Neut % (Auto) (48.0-80.0) % Lymph % (Auto) (16.0-40.0) % Bates % (Auto) (0.0-15.0) % Eos % (Auto) (0.0-7.0) % Baso % (Auto) (0.0-1.5) % Neut # (Auto) (1.4-5.7) K/uL Lymph # (Auto) (0.6-2.4) K/uL Bates # (Auto) (0.0-0.8) K/uL Eos # (Auto) (0.0-0.7) K/uL Baso # (Auto) (0.0-0.1) K/uL Add Manual Diff YES Neutrophils % (Manual) 56 (48.0-80.0) % Band Neutrophils % 26 % Lymphocytes % (Manual) 12 L (16.0-40.0) % Monocytes % (Manual) 5 (0.0-15.0) % Basophils % (Manual) 1 (0.0-1.5) % Nucleated RBC % 0.0 /100WBC Absolute Seg Neuts 9.7 H (1.4-5.7) Band Neutrophils # 4.5 Lymphocytes # (Manual) 2.1 (0.6-2.4) Monocytes # (Manual) 0.9 H (0.0-0.8) Basophils # (Manual) 0.2 H (0.0-0.1) Nucleated RBCs # 0 K/uL Lactate 1.3 (0.20-2.00) mmol/L Sodium 138 (136-146) mmol/L Potassium 3.8 (3.5-5.1) mmol/L Chloride 103 (98-110) mmol/L Carbon Dioxide 25 (21-31) mmol/L BUN 19 (6.0-23.0) mg/dL Creatinine 0.9 (0.6-1.5) mg/dL Est Cr Clr Drug Dosing 87.42 mL/min Estimated GFR (MDRD) > 60.0 ml/min Glucose 150 H (60-110) mg/dL Hemoglobin A1c (0.0-6.0) % Calcium 8.8 (8.8-10.8) mg/dL Magnesium (1.5-2.3) mEq/L Total Bilirubin 0.8 (0.1-1.5) mg/dL AST 13 (5-40) IU/L ALT 10 (8-54) IU/L Alkaline Phosphatase 72 (40-150) Total Protein 7.6 (6.0-8.0) g/dL Albumin 3.6 (3.4-4.8) g/dL Globulin 4.0 H (2.0-3.5) g/dL Albumin/Globulin Ratio 0.9 L (1.3-2.8) 08/10/17 08/10/17 08/10/17 Range/Units 04:42 04:42 08:15 WBC 14.08 H (4.0-11.0) K/uL RBC 4.00 L (4.50-5.90) M/uL Hgb 13.6 (13.0-17.0) g/dL Hct 40.7 (38.0-50.0) % MCV 101.8 H (80.0-98.0) fL MCH 34.0 H (27.0-32.0) pg MCHC 33.4 (31.0-37.0) g/dL RDW Std Deviation 51.6 (28.0-62.0) fl RDW Coeff of Yasmani 14 (11.0-15.0) % Plt Count 202 (150-400) K/uL MPV 10.30 (7.40-12.00) fL Neut % (Auto) 79.5 (48.0-80.0) % Lymph % (Auto) 9.4 L (16.0-40.0) % Bates % (Auto) 9.3 (0.0-15.0) % Eos % (Auto) 1.6 (0.0-7.0) % Baso % (Auto) 0.2 (0.0-1.5) % Neut # (Auto) 11.2 H (1.4-5.7) K/uL Lymph # (Auto) 1.3 (0.6-2.4) K/uL Bates # (Auto) 1.3 H (0.0-0.8) K/uL Eos # (Auto) 0.2 (0.0-0.7) K/uL Baso # (Auto) 0.0 (0.0-0.1) K/uL Add Manual Diff Neutrophils % (Manual) (48.0-80.0) % Band Neutrophils % % Lymphocytes % (Manual) (16.0-40.0) % Monocytes % (Manual) (0.0-15.0) % Basophils % (Manual) (0.0-1.5) % Nucleated RBC % 0.0 /100WBC Absolute Seg Neuts (1.4-5.7) Band Neutrophils # Lymphocytes # (Manual) (0.6-2.4) Monocytes # (Manual) (0.0-0.8) Basophils # (Manual) (0.0-0.1) Nucleated RBCs # 0 K/uL Lactate (0.20-2.00) mmol/L Sodium 137 (136-146) mmol/L Potassium 3.8 (3.5-5.1) mmol/L Chloride 107 (98-110) mmol/L Carbon Dioxide 22 (21-31) mmol/L BUN 15 (6.0-23.0) mg/dL Creatinine 0.8 (0.6-1.5) mg/dL Est Cr Clr Drug Dosing 98.35 mL/min Estimated GFR (MDRD) > 60.0 ml/min Glucose 159 H (60-110) mg/dL Hemoglobin A1c 6.7 H (0.0-6.0) % Calcium 8.1 L (8.8-10.8) mg/dL Magnesium 1.3 L (1.5-2.3) mEq/L Total Bilirubin 0.7 (0.1-1.5) mg/dL AST 12 (5-40) IU/L ALT 10 (8-54) IU/L Alkaline Phosphatase 64 (40-150) Total Protein 6.2 (6.0-8.0) g/dL Albumin 3.3 L (3.4-4.8) g/dL Globulin 2.9 (2.0-3.5) g/dL Albumin/Globulin Ratio 1.1 L (1.3-2.8) Meds: Medications Generic Name Dose Route Start Last Admin Trade Name Kulwinder PRN Reason Stop Dose Admin Acetaminophen 650 mg 08/09/17 20:22 Tylenol PO Q4H PRN Pain (Mild 1-3)/fever Bisacodyl 5 mg 08/09/17 20:22 Dulcolax PO DAILY PRN Constipation Docusate Sodium 100 mg 08/09/17 20:22 Colace PO BID PRN Constipation Enoxaparin Sodium 40 mg 08/10/17 09:00 08/10/17 08:09 Lovenox SUBCUT 40 mg DAILY [facility] Administration Piperacillin Sod/Tazobactam 50 mls @ 100 mls/hr 08/09/17 21:00 08/10/17 08:11 Sod 3.375 gm/ Sodium Chloride IV 100 mls/hr Q6H [facility] Administration Insulin Aspart 0 unit 08/10/17 11:30 Novolog SUBCUT TIDAC [facility] Protocol Temazepam 15 mg 08/09/17 20:22 Restoril PO BEDTIME PRN Sleep Discontinued Medications Generic Name Dose Route Start Last Admin Trade Name Kulwinder PRN Reason Stop Dose Admin Vancomycin HCl 1 gm/ Sodium 250 mls @ 250 mls/hr 08/09/17 18:00 08/09/17 18: 11 Chloride IV 08/09/17 18:59 250 mls/hr ONETIME ONE Administration Sodium Chloride 1,000 mls @ 125 mls/hr 08/09/17 18:00 08/09/17 18:11 Normal Saline IV 08/10/17 01:59 125 mls/hr STAT ONE Administration Influenza Virus Vaccine 1 each 08/09/17 23:16 Pharmacy To Dose - Influenza Vaccine IM 08/09/17 23:17 ONETIME ONE Influenza Virus Vaccine 60 mcg 08/10/17 10:00 Fluarix Quad [id number] IM 08/10/17 10:01 .ONCE ONE Departure - Departure Time of Disposition: 22:00 Disposition: Admitted As Inpatient 66 Clinical Impression: Cellulitis Qualifiers: Site of cellulitis: extremity Site of cellulitis of extremity: lower extremity Laterality: left Qualified Code(s): L03.116 - Cellulitis of left lower limb - Discharge Information - My Orders Last 24 Hours: My Active Orders 08/09/17 17:07 Blood Culture x2 Reflex Set [OM.PC] Stat 08/09/17 17:27 CULTURE BLOOD [BC] Stat 08/09/17 17:35 Venous Doppler Lwr Ext Lt [US] Stat 08/09/17 17:45 CULTURE BLOOD [BC] Stat 08/09/17 18:01 Communication Order [RC] STAT 08/09/17 19:27 Foot 2V Lt [CR] Stat - Assessment/Plan Last 24 Hours: My Active Orders 08/09/17 17:07 Blood Culture x2 Reflex Set [OM.PC] Stat 08/09/17 17:27 CULTURE BLOOD [BC] Stat 08/09/17 17:35 Venous Doppler Lwr Ext Lt [US] Stat 08/09/17 17:45 CULTURE BLOOD [BC] Stat 08/09/17 18:01 Communication Order [RC] STAT 08/09/17 19:27 Foot 2V Lt [CR] Stat
[2017-08-09] MEDS ORDERED: Sodium Chloride 0.9% 1,000 ML IV ONE (18:00)
[2017-08-09 18:17] LABS: CHLORIDE,CL 103 mmol/L (98-110); SODIUM,NA 138 mmol/L (136-146)
--- NOTE | 2017-08-09 20:12 | PCM.HP ---
H&P History of Present Illness - General Date of Service: 08/09/17 Admit Problem/Dx: Admission Diagnosis/Problem Admission Diagnosis/Problem Cellulitis Source of Information: Patient, Family, Provider - History of Present Illness Initial Comments - Free Text/Narative: two day history of left leg pain and swelling and redness. He was seen by Eulalia Balderas NP who diagnosed cellulitis and recommended observation in the hospital with intravenous antibiotics. He denies known trauma Venous doppler in the ED was n egative for deep venous thrombosis. Left Leg Pain Score (Numeric/FACES): 4 - Related Data Allergies/Adverse Reactions: Allergies Allergy/AdvReac Type Severity Reaction Status Date / Time No Known Allergies Allergy Verified 08/09/17 16:54 Home Medications: Home Meds . 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 DM - borderline Hematologic History: Reports: None Immunologic History: Reports: Immunosuppression Oncologic (Cancer) History: Reports: None Dermatologic History: Reports: None - Infectious Disease History Infectious Disease History: Reports: None - Past Surgical History GI Surgical History: Reports: Colonoscopy Other Musculoskeletal Surgeries/Procedures:: right finger surgery Social & Family History - Family History Family Medical History: Noncontributory Cardiac: Reports: Angina GI: Reports: Hiatal Hernia Neurological: Reports: MS Endocrine/Metabolic: Reports: Other (See Below) Other Endocrine/Metabolic Family History: DM type unknown Oncologic: Reports: Other (See Below) Other Oncologic Family History: Kidney - Tobacco Use Smoking Status *Q: Never Smoker Second Hand Smoke Exposure: No - Caffeine Use Caffeine Use: Reports: Soda - Recreational Drug Use Recreational Drug Use: No H&P Review of Systems - Review of Systems: Review Of Systems: See Below General: Reports: Fever HEENT: Denies: Sore Throat Pulmonary: Denies: Shortness of Breath Cardiovascular: Denies: Chest Pain Gastrointestinal: Denies: Abdominal Pain, Bloody Stool, Hematemesis Genitourinary: Denies: Dysuria, Hematuria Psychiatric: Denies: Confusion Exam - Exam Exam: See Below - Vital Signs Vital Signs: Last Vital Signs Temp 98.6 F 08/09/17 16:55 Pulse 98 08/09/17 16:55 Resp 12 08/09/17 16:55 BP 98/53 L 08/09/17 16:55 Pulse Ox 96 08/09/17 16:55 Weight: 154.221 kg - Exam General: Alert, Oriented HEENT: Conjunctiva Clear Neck: Supple, Trachea Midline Lungs: Clear to Auscultation, Normal Respiratory Effort Cardiovascular: Regular Rate, Regular Rhythm GI/Abdominal Exam: Soft, Non-Tender (Male) Exam: No: Scrotal Swelling Rectal (Males) Exam: Deferred Extremities: Other (diffuse swelling and erythema LLE from the ankle to the groin; mostly medially; no open lesions; no fluctuant areas. ) - Patient Data Result Diagrams: 08/09/17 17:27 08/09/17 17:27 *Q Meaningful Use (ADM) - VTE *Q VTE Criteria *Q: - Stroke *Q Stroke Criteria *Q: - AMI *Q AMI Criteria *Q: - Problem List (1) Cellulitis SNOMED Code(s): 714866607 ICD Code: L03.90 - CELLULITIS, UNSPECIFIED Status: Acute Current Visit: Yes Problem List Initiated/Reviewed/Updated: Yes Orders Last 24hrs: Medication Orders Sodium Chloride (Normal Saline) 1,000 mls @ 125 mls/hr IV STAT ONE Stop: 08/10/17 01:59 Last Admin: 08/09/17 18:11 Dose: 125 mls/hr Assessment/Plan Comment:: admit see orders
[2017-08-09] MEDS ORDERED: Docusate Sodium 100 MG Cap PO PRN (20:22)
[2017-08-09] MEDS ORDERED: Bisacodyl 5 MG Tab PO PRN (20:22)
[2017-08-09] MEDS ORDERED: Temazepam 15 MG Cap PO PRN (20:22)
[2017-08-09] MEDS: Piperacillin/Tazobactam 3.375 GM in Sodium Chloride 0.9% 50 ML IV SCH (21:59)
[2017-08-10] MEDS: Piperacillin/Tazobactam 3.375 GM in Sodium Chloride 0.9% 50 ML IV SCH ×4 (02:44→20:06)
[2017-08-10 05:57] LABS: CHLORIDE,CL 107 mmol/L (98-110); SODIUM,NA 137 mmol/L (136-146)
[2017-08-10] MEDS: Enoxaparin 40 MG/0.4 ML Syringe SUBCUT SCH (08:09)
--- NOTE | 2017-08-10 09:14 | PCM.PN ---
- General Info Date of Service: 08/10/17 Admission Dx/Problem (Free Text): Admission Diagnosis/Problem Admission Diagnosis/Problem Cellulitis Subjective Update: Doing well this morning, feeling a little better, had some pain to LLE with getting up to bathroom this morning, throbbing in nature and stiff. Denies chest pain or SOB. Functional Status: Reports: Pain Controlled, Tolerating Diet, Ambulating, Urinating - Review of Systems General: Reports: No Symptoms. Denies: Fever Pulmonary: Reports: No Symptoms. Denies: Shortness of Breath, Cough, Sputum Cardiovascular: Reports: Edema (LLE). Denies: Chest Pain, Palpitations Gastrointestinal: Reports: No Symptoms. Denies: Abdominal Pain, Nausea, Vomiting Genitourinary: Reports: No Symptoms. Denies: Dysuria, Frequency, Burning Skin: Reports: No Symptoms Neurological: Reports: No Symptoms. Denies: Confusion Psychiatric: Reports: No Symptoms - Patient Data Vitals - Most Recent: Last Vital Signs Temp 97.1 F 08/10/17 08:00 Pulse 77 08/10/17 08:00 Resp 20 08/10/17 08:00 BP 97/46 L 08/10/17 08:00 Pulse Ox 94 L 08/10/17 08:00 Weight - Most Recent: 145.921 kg I&O - Last 24 Hours: Intake & Output 08/09/17 08/10/17 08/10/17 22:59 06:59 14:59 Intake Total 50 1994 Balance 50 1994 Lab Results Last 24 Hours: Laboratory Results - last 24 hr 08/10/17 08/10/17 08/10/17 Range/Units 04:42 04:42 08:15 WBC 14.08 H (4.0-11.0) K/uL RBC 4.00 L (4.50-5.90) M/uL Hgb 13.6 (13.0-17.0) g/dL Hct 40.7 (38.0-50.0) % MCV 101.8 H (80.0-98.0) fL MCH 34.0 H (27.0-32.0) pg MCHC 33.4 (31.0-37.0) g/dL RDW Std Deviation 51.6 (28.0-62.0) fl RDW Coeff of Yasmani 14 (11.0-15.0) % Plt Count 202 (150-400) K/uL MPV 10.30 (7.40-12.00) fL Neut % (Auto) 79.5 (48.0-80.0) % Lymph % (Auto) 9.4 L (16.0-40.0) % Granite % (Auto) 9.3 (0.0-15.0) % Eos % (Auto) 1.6 (0.0-7.0) % Baso % (Auto) 0.2 (0.0-1.5) % Neut # (Auto) 11.2 H (1.4-5.7) K/uL Lymph # (Auto) 1.3 (0.6-2.4) K/uL Granite # (Auto) 1.3 H (0.0-0.8) K/uL Eos # (Auto) 0.2 (0.0-0.7) K/uL Baso # (Auto) 0.0 (0.0-0.1) K/uL Nucleated RBC % 0.0 /100WBC Nucleated RBCs # 0 K/uL Sodium 137 (136-146) mmol/L Potassium 3.8 (3.5-5.1) mmol/L Chloride 107 (98-110) mmol/L Carbon Dioxide 22 (21-31) mmol/L BUN 15 (6.0-23.0) mg/dL Creatinine 0.8 (0.6-1.5) mg/dL Est Cr Clr Drug Dosing 98.35 mL/min Estimated GFR (MDRD) > 60.0 ml/min Glucose 159 H (60-110) mg/dL Hemoglobin A1c 6.7 H (0.0-6.0) % Calcium 8.1 L (8.8-10.8) mg/dL Magnesium 1.3 L (1.5-2.3) mEq/L Total Bilirubin 0.7 (0.1-1.5) mg/dL AST 12 (5-40) IU/L ALT 10 (8-54) IU/L Alkaline Phosphatase 64 (40-150) Total Protein 6.2 (6.0-8.0) g/dL Albumin 3.3 L (3.4-4.8) g/dL Globulin 2.9 (2.0-3.5) g/dL Albumin/Globulin Ratio 1.1 L (1.3-2.8) Med Orders - Current: Current Medications Acetaminophen (Tylenol) 650 mg PO Q4H PRN PRN Reason: Pain (Mild 1-3)/fever Bisacodyl (Dulcolax) 5 mg PO DAILY PRN PRN Reason: Constipation Docusate Sodium (Colace) 100 mg PO BID PRN PRN Reason: Constipation Enoxaparin Sodium (Lovenox) 40 mg SUBCUT DAILY [facility] Last Admin: 08/10/17 08:09 Dose: 40 mg Piperacillin Sod/Tazobactam (Sod 3.375 gm/ Sodium Chloride) 50 mls @ 100 mls/ hr IV Q6H [facility] Last Admin: 08/10/17 08:11 Dose: 100 mls/hr Influenza Virus Vaccine (Fluarix Quad [id number]) 60 mcg IM .ONCE ONE Stop: 08/10/17 10:01 Temazepam (Restoril) 15 mg PO BEDTIME PRN PRN Reason: Sleep Discontinued Medications Vancomycin HCl 1 gm/ Sodium (Chloride) 250 mls @ 250 mls/hr IV ONETIME ONE Stop: 08/09/17 18:59 Last Admin: 08/09/17 18:11 Dose: 250 mls/hr Sodium Chloride (Normal Saline) 1,000 mls @ 125 mls/hr IV STAT ONE Stop: 08/10/17 01:59 Last Admin: 08/09/17 18:11 Dose: 125 mls/hr Influenza Virus Vaccine (Pharmacy To Dose - Influenza Vaccine) 1 each IM ONETIME ONE Stop: 08/09/17 23:17 - Exam General: Alert, Oriented, Cooperative, No Acute Distress Neck: Supple Lungs: Clear to Auscultation, Normal Respiratory Effort Cardiovascular: Regular Rate, Regular Rhythm GI/Abdominal Exam: Normal Bowel Sounds, Soft, Non-Tender, No Organomegaly, No Distention, No Abnormal Bruit, No Mass, Pelvis Stable Extremities: Normal Range of Motion (no salena), Normal Capillary Refill, Pedal Edema (+1 LLE). No: Joint Swelling Wound/Incisions: No Drainage, Erythema Improving (To LLE, slightly warm to touch , no drainage. dry skin noted, with no obvious abrasions or opened skin. ) Psy/Mental Status: Alert, Normal Affect, Normal Mood - Problem List & Annotations (1) Cellulitis SNOMED Code(s): 975708135 Code(s): L03.90 - CELLULITIS, UNSPECIFIED Status: Acute Current Visit: Yes (2) Obesity SNOMED Code(s): 707504545 Code(s): E66.9 - OBESITY, UNSPECIFIED Status: Acute Current Visit: No Qualifiers: Obesity classification: adult class 3 (BMI >= 40) Body mass index: BMI 40.0 -44.9 (3) DM2 (diabetes mellitus, type 2) SNOMED Code(s): 60084481 Code(s): E11.9 - TYPE 2 DIABETES MELLITUS WITHOUT COMPLICATIONS Status: Chronic Priority: High Current Visit: No Qualifiers: Diabetes mellitus complication status: without complication Diabetes mellitus oil heaterman insulin use: without mcfp use Qualified Code(s): E11.9 - Type 2 diabetes mellitus without complications - Problem List Review Problem List Initiated/Reviewed/Updated: Yes - Plan Plan:: This 67 year old male admitted with LLE cellulitis 1. LLE cellulitis: Improving. Continue Vancomycin and Zosyn today. BC pending. Leukocytosis improving as well, 14,000 today. Afebrile. 2. DM Type 2: A1c 6.7. Will likely increase Metformin to 1,000 mg BID, from 500 mg daily. Especially since having troubles with cellulitis. Will have Novolog SSI while here. Monitor BS TIDAC. VTE prophylaxis: Lovenox. Dispo: 2-3 days pending improvement. Will change to inpatient status.
[2017-08-10] MEDS ORDERED: FLU Vacc QS 2017-18 (36mos UP)/PF 60 MCG/0.5 ML Syringe IM ONE (10:00)
[2017-08-10] MEDS: Insulin Aspart 100 Units/ML 3 ML Pen SUBCUT SCH ×2 (11:30→17:11)
[2017-08-10] MEDS: Vancomycin 2 GM in Sodium Chloride 0.9% 500 ML IV SCH ×2 (11:44→23:52)
[2017-08-10] MEDS ORDERED: Magnesium Sulfate/Water 2 GM in Premix Bag 1 BAG IV ONE (13:55)
--- NOTE | 2017-08-10 14:17 | US ---
EXAM DATE: 08/10/17 PATIENT'S AGE: 67 Patient: BILLY LAZCANO Facility: [place], [place] Site . Site : 1950 Study: US Extremity Left [id number] 6:48:13 PM Ordering Physician: Doctor Ballesteros Final Report: INDICATION: LLE SWELLING, CELLULITIS LEFT LOWER EXTREMITY VENOUS DUPLEX ULTRASOUND TECHNIQUE: Duplex sonography using grayscale imaging as well as color and spectral Doppler interrogation was performed over the left lower extremity with attention to the deep venous system. The exam was limited by calf edema. FINDINGS: The left common femoral, femoral, deep femoral, and popliteal veins show normal compressibility, color Doppler flow, and augmentation response. IMPRESSION: No evidence of deep venous thrombosis in the left lower extremity. WILLAM LOBATO MD [employer] [facility] Dictated by: Deuce Lobato MD @ 08/09/2017 18:57:08 (Electronic Signature) Report Signed by Proxy. WILLIS
--- NOTE | 2017-08-10 14:18 | CR ---
EXAM DATE: 08/10/17 PATIENT'S AGE: 67 Patient: BILLY LAZCANO Facility: [place], [place] Site . Site : 1950 Study: XRay Extremity foot [id number] 8:12:19 PM Ordering Physician: Doctor Ballesteros Final Report: INDICATION: Pain, swelling, and redness. COMPARISON: None. FINDINGS/IMPRESSION: Left foot, 2 views. Nonspecific diffuse soft tissue swelling. No acute fracture , dislocation, or other acute osseous abnormality identified. No definite radiographic evidence of osteomyelitis. Scattered very minimal DJD changes. Small plantar calcaneal spur. Dictated by Deuce Hamilton MD @ 08/09/2017 8:17:55 PM Dictated by: Deuce Hamilton MD @ 08/09/2017 20:18:08 (Electronic Signature) Report Signed by Proxy. [facility]
[2017-08-10] MEDS: Acetaminophen 325 MG Tab PO PRN (20:05)
[2017-08-11] MEDS: Piperacillin/Tazobactam 3.375 GM in Sodium Chloride 0.9% 50 ML IV SCH ×4 (03:52→20:37)
[2017-08-11 06:30] LABS: CHLORIDE,CL 106 mmol/L (98-110); SODIUM,NA 138 mmol/L (136-146)
[2017-08-11] MEDS: Insulin Aspart 100 Units/ML 3 ML Pen SUBCUT SCH ×3 (07:19→16:43)
[2017-08-11] MEDS: Acetaminophen 325 MG Tab PO PRN ×2 (09:50→19:53)
[2017-08-11] MEDS: Enoxaparin 40 MG/0.4 ML Syringe SUBCUT SCH (09:51)
--- NOTE | 2017-08-11 11:10 | PCM.PN ---
- General Info Date of Service: 08/11/17 Subjective Update: he is feeling better. - Patient Data Vitals - Most Recent: Last Vital Signs Temp 98.4 F 08/11/17 08:00 Pulse 77 08/11/17 08:00 Resp 18 08/11/17 08:00 BP 118/70 08/11/17 08:00 Pulse Ox 94 L 08/11/17 08:00 Weight - Most Recent: 145.921 kg I&O - Last 24 Hours: Intake & Output 08/10/17 08/11/17 08/11/17 22:59 06:59 14:59 Intake Total 1250 1000 Balance 1250 1000 Lab Results Last 24 Hours: Laboratory Results - last 24 hr 08/10/17 08/10/17 08/11/17 Range/Units 11:53 17:34 05:35 WBC 12.51 H (4.0-11.0) K/uL RBC 3.71 L (4.50-5.90) M/uL Hgb 12.8 L (13.0-17.0) g/dL Hct 38.0 (38.0-50.0) % MCV 102.4 H (80.0-98.0) fL MCH 34.5 H (27.0-32.0) pg MCHC 33.7 (31.0-37.0) g/dL RDW Std Deviation 50.8 (28.0-62.0) fl RDW Coeff of Yasmani 14 (11.0-15.0) % Plt Count 211 (150-400) K/uL MPV 10.00 (7.40-12.00) fL Neut % (Auto) 74.9 (48.0-80.0) % Lymph % (Auto) 10.8 L (16.0-40.0) % [place] % (Auto) 9.5 (0.0-15.0) % Eos % (Auto) 4.5 (0.0-7.0) % Baso % (Auto) 0.3 (0.0-1.5) % Neut # (Auto) 9.4 H (1.4-5.7) K/uL Lymph # (Auto) 1.4 (0.6-2.4) K/uL [place] # (Auto) 1.2 H (0.0-0.8) K/uL Eos # (Auto) 0.6 (0.0-0.7) K/uL Baso # (Auto) 0.0 (0.0-0.1) K/uL Nucleated RBC % 0.0 /100WBC Nucleated RBCs # 0 K/uL Sodium (136-146) mmol/L Potassium (3.5-5.1) mmol/L Chloride (98-110) mmol/L Carbon Dioxide (21-31) mmol/L BUN (6.0-23.0) mg/dL Creatinine (0.6-1.5) mg/dL Est Cr Clr Drug Dosing mL/min Estimated GFR (MDRD) ml/min Glucose (60-110) mg/dL POC Glucose 117 H 208 H (60-110) mg/dL Calcium (8.8-10.8) mg/dL 08/11/17 Range/Units 05:35 WBC (4.0-11.0) K/uL RBC (4.50-5.90) M/uL Hgb (13.0-17.0) g/dL Hct (38.0-50.0) % MCV (80.0-98.0) fL MCH (27.0-32.0) pg MCHC (31.0-37.0) g/dL RDW Std Deviation (28.0-62.0) fl RDW Coeff of Yasmani (11.0-15.0) % Plt Count (150-400) K/uL MPV (7.40-12.00) fL Neut % (Auto) (48.0-80.0) % Lymph % (Auto) (16.0-40.0) % [place] % (Auto) (0.0-15.0) % Eos % (Auto) (0.0-7.0) % Baso % (Auto) (0.0-1.5) % Neut # (Auto) (1.4-5.7) K/uL Lymph # (Auto) (0.6-2.4) K/uL [place] # (Auto) (0.0-0.8) K/uL Eos # (Auto) (0.0-0.7) K/uL Baso # (Auto) (0.0-0.1) K/uL Nucleated RBC % /100WBC Nucleated RBCs # K/uL Sodium 138 (136-146) mmol/L Potassium 3.9 (3.5-5.1) mmol/L Chloride 106 (98-110) mmol/L Carbon Dioxide 27 (21-31) mmol/L BUN 11 (6.0-23.0) mg/dL Creatinine 0.7 (0.6-1.5) mg/dL Est Cr Clr Drug Dosing 112.40 mL/min Estimated GFR (MDRD) > 60.0 ml/min Glucose 150 H (60-110) mg/dL POC Glucose (60-110) mg/dL Calcium 8.3 L (8.8-10.8) mg/dL Med Orders - Current: Current Medications Acetaminophen (Tylenol) 650 mg PO Q4H PRN PRN Reason: Pain (Mild 1-3)/fever Last Admin: 08/11/17 09:50 Dose: 650 mg Bisacodyl (Dulcolax) 5 mg PO DAILY PRN PRN Reason: Constipation Docusate Sodium (Colace) 100 mg PO BID PRN PRN Reason: Constipation Enoxaparin Sodium (Lovenox) 40 mg SUBCUT DAILY [facility] Last Admin: 08/11/17 09:51 Dose: 40 mg Piperacillin Sod/Tazobactam (Sod 3.375 gm/ Sodium Chloride) 50 mls @ 100 mls/ hr IV Q6H [facility] Last Admin: 08/11/17 09:52 Dose: 100 mls/hr Vancomycin HCl 2 gm/ Sodium (Chloride) 500 mls @ 250 mls/hr IV Q12H [facility] Last Admin: 08/10/17 23:52 Dose: 250 mls/hr Insulin Aspart (Novolog) 0 unit SUBCUT TIDAC [facility] PRN Reason: Protocol Last Admin: 08/11/17 07:19 Dose: 1 units Temazepam (Restoril) 15 mg PO BEDTIME PRN PRN Reason: Sleep Vancomycin HCl (Pharmacy To Dose - Vancomycin) 1 dose .XX ASDIRECTED [facility] Discontinued Medications Vancomycin HCl 1 gm/ Sodium (Chloride) 250 mls @ 250 mls/hr IV ONETIME ONE Stop: 08/09/17 18:59 Last Admin: 08/09/17 18:11 Dose: 250 mls/hr Sodium Chloride (Normal Saline) 1,000 mls @ 125 mls/hr IV STAT ONE Stop: 08/10/17 01:59 Last Admin: 08/09/17 18:11 Dose: 125 mls/hr Magnesium Sulfate 2 gm/ Premix 50 mls @ 50 mls/hr IV ONETIME ONE Stop: 08/10/17 14:54 Last Admin: 08/10/17 14:16 Dose: 50 mls/hr Influenza Virus Vaccine (Pharmacy To Dose - Influenza Vaccine) 1 each IM ONETIME ONE Stop: 08/09/17 23:17 Influenza Virus Vaccine (Fluarix Quad [id number]) 60 mcg IM .ONCE ONE Stop: 08/10/17 10:01 - Exam Lungs: Normal Respiratory Effort Extremities: Other (still with erythema and increased temperature and swelling LLE but improved compared to admission.) - Problem List & Annotations (1) Cellulitis SNOMED Code(s): 060147369 Code(s): L03.90 - CELLULITIS, UNSPECIFIED Status: Acute Current Visit: Yes Qualifiers: Site of cellulitis: extremity Site of cellulitis of extremity: lower extremity Laterality: left Qualified Code(s): L03.116 - Cellulitis of left lower limb (2) Diabetes mellitus SNOMED Code(s): 82241548 Code(s): E11.9 - TYPE 2 DIABETES MELLITUS WITHOUT COMPLICATIONS Status: Acute Current Visit: Yes - Problem List Review Problem List Initiated/Reviewed/Updated: Yes - My Orders Last 24 Hours: My Active Orders 08/12/17 05:11 CBC WITH AUTO DIFF [HEME] AM COMPREHENSIVE METABOLIC PN,CMP [CHEM] AM MAGNESIUM [CHEM] AM - Plan Plan:: This 67 year old male admitted with LLE cellulitis 1. LLE cellulitis: Improving. Continue Vancomycin and Zosyn today. BC pending. Leukocytosis improving as well, 14,000 today. Afebrile. 2. DM Type 2: A1c 6.7. Will likely increase Metformin to 1,000 mg BID, from 500 mg daily. Especially since having troubles with cellulitis. Will have Novolog SSI while here. Monitor BS TIDAC. VTE prophylaxis: Lovenox. Dispo: 2-3 days pending improvement. Will change to inpatient status. 08/11/2017 improving probable discharge tomorrow. Kenji Ray MD
[2017-08-11] MEDS: Vancomycin 2 GM in Sodium Chloride 0.9% 500 ML IV SCH ×2 (12:36→23:33)
[2017-08-12] MEDS: Piperacillin/Tazobactam 3.375 GM in Sodium Chloride 0.9% 50 ML IV SCH ×4 (03:51→20:57)
[2017-08-12] MEDS: Acetaminophen 325 MG Tab PO PRN ×3 (05:14→17:35)
[2017-08-12 06:14] LABS: CHLORIDE,CL 108 mmol/L (98-110); SODIUM,NA 138 mmol/L (136-146)
[2017-08-12] MEDS: Insulin Aspart 100 Units/ML 3 ML Pen SUBCUT SCH ×3 (06:46→18:34)
[2017-08-12] MEDS: Enoxaparin 40 MG/0.4 ML Syringe SUBCUT SCH (09:07)
[2017-08-12] MEDS ORDERED: Magnesium Sulfate/Water 2 GM in Premix Bag 1 BAG IV ONE (11:04)
--- NOTE | 2017-08-12 11:09 | PCM.PN ---
- General Info Date of Service: 08/12/17 Admission Dx/Problem (Free Text): Admission Diagnosis/Problem Admission Diagnosis/Problem Cellulitis Subjective Update: Patient has no new concerns this morning. He notes that the redness in the left lower extremity is improving but he has increased swelling in the left lower extremity. He has been ambulating in the hallways with minimal pain with ambulation. He is tolerating oral intake and voiding appropriately. He has been afebrile. Functional Status: Reports: Pain Controlled, Tolerating Diet, Ambulating, Urinating - Review of Systems General: Reports: No Symptoms HEENT: Reports: No Symptoms Pulmonary: Reports: No Symptoms Cardiovascular: Reports: No Symptoms Gastrointestinal: Reports: No Symptoms Genitourinary: Reports: No Symptoms Musculoskeletal: Reports: Other (Left lower extremity pain that has improved since admission.) Skin: Reports: No Symptoms Neurological: Reports: No Symptoms Psychiatric: Reports: No Symptoms - Patient Data Vitals - Most Recent: Last Vital Signs Temp 97.9 F 08/12/17 08:00 Pulse 61 08/12/17 08:00 Resp 17 08/12/17 08:00 BP 117/57 L 08/12/17 08:00 Pulse Ox 91 L 08/12/17 08:00 Weight - Most Recent: 321 lb 11.2 oz I&O - Last 24 Hours: Intake & Output 08/11/17 08/12/17 08/12/17 22:59 06:59 14:59 Intake Total 951 50 Balance 951 50 Lab Results Last 24 Hours: Laboratory Results - last 24 hr 08/11/17 08/11/17 08/11/17 Range/Units 06:28 11:26 11:30 WBC (4.0-11.0) K/uL RBC (4.50-5.90) M/uL Hgb (13.0-17.0) g/dL Hct (38.0-50.0) % MCV (80.0-98.0) fL MCH (27.0-32.0) pg MCHC (31.0-37.0) g/dL RDW Std Deviation (28.0-62.0) fl RDW Coeff of Yasmani (11.0-15.0) % Plt Count (150-400) K/uL MPV (7.40-12.00) fL Add Manual Diff Neutrophils % (Manual) (48.0-80.0) % Band Neutrophils % % Lymphocytes % (Manual) (16.0-40.0) % Monocytes % (Manual) (0.0-15.0) % Basophils % (Manual) (0.0-1.5) % Nucleated RBC % /100WBC Absolute Seg Neuts (1.4-5.7) Band Neutrophils # Lymphocytes # (Manual) (0.6-2.4) Monocytes # (Manual) (0.0-0.8) Basophils # (Manual) (0.0-0.1) Nucleated RBCs # K/uL Sodium (136-146) mmol/L Potassium (3.5-5.1) mmol/L Chloride (98-110) mmol/L Carbon Dioxide (21-31) mmol/L BUN (6.0-23.0) mg/dL Creatinine (0.6-1.5) mg/dL Est Cr Clr Drug Dosing mL/min Estimated GFR (MDRD) ml/min Glucose (60-110) mg/dL POC Glucose 153 H 134 H (60-110) mg/dL Calcium (8.8-10.8) mg/dL Magnesium (1.5-2.3) mEq/L Total Bilirubin (0.1-1.5) mg/dL AST (5-40) IU/L ALT (8-54) IU/L Alkaline Phosphatase (40-150) Total Protein (6.0-8.0) g/dL Albumin (3.4-4.8) g/dL Globulin (2.0-3.5) g/dL Albumin/Globulin Ratio (1.3-2.8) Vancomycin Trough 8.7 (5-15) ug/mL 08/11/17 08/12/17 08/12/17 Range/Units 16:33 05:29 05:29 WBC 12.66 H (4.0-11.0) K/uL RBC 3.68 L (4.50-5.90) M/uL Hgb 12.5 L (13.0-17.0) g/dL Hct 37.4 L (38.0-50.0) % MCV 101.6 H (80.0-98.0) fL MCH 34.0 H (27.0-32.0) pg MCHC 33.4 (31.0-37.0) g/dL RDW Std Deviation 49.9 (28.0-62.0) fl RDW Coeff of Yasmani 13 (11.0-15.0) % Plt Count 218 (150-400) K/uL MPV 9.50 (7.40-12.00) fL Add Manual Diff YES Neutrophils % (Manual) 71 (48.0-80.0) % Band Neutrophils % 9 % Lymphocytes % (Manual) 11 L (16.0-40.0) % Monocytes % (Manual) 8 (0.0-15.0) % Basophils % (Manual) 1 (0.0-1.5) % Nucleated RBC % 0.0 /100WBC Absolute Seg Neuts 9.0 H (1.4-5.7) Band Neutrophils # 1.1 Lymphocytes # (Manual) 1.4 (0.6-2.4) Monocytes # (Manual) 1.0 H (0.0-0.8) Basophils # (Manual) 0.1 (0.0-0.1) Nucleated RBCs # 0 K/uL Sodium 138 (136-146) mmol/L Potassium 3.9 (3.5-5.1) mmol/L Chloride 108 (98-110) mmol/L Carbon Dioxide 23 (21-31) mmol/L BUN 9 (6.0-23.0) mg/dL Creatinine 0.7 (0.6-1.5) mg/dL Est Cr Clr Drug Dosing 112.40 mL/min Estimated GFR (MDRD) > 60.0 ml/min Glucose 132 H (60-110) mg/dL POC Glucose 101 (60-110) mg/dL Calcium 8.3 L (8.8-10.8) mg/dL Magnesium 1.4 L (1.5-2.3) mEq/L Total Bilirubin 0.8 (0.1-1.5) mg/dL AST 13 (5-40) IU/L ALT 12 (8-54) IU/L Alkaline Phosphatase 51 (40-150) Total Protein 6.3 (6.0-8.0) g/dL Albumin 2.9 L (3.4-4.8) g/dL Globulin 3.4 (2.0-3.5) g/dL Albumin/Globulin Ratio 0.9 L (1.3-2.8) Vancomycin Trough (5-15) ug/mL Med Orders - Current: Current Medications Acetaminophen (Tylenol) 650 mg PO Q4H PRN PRN Reason: Pain (Mild 1-3)/fever Last Admin: 08/12/17 09:28 Dose: 650 mg Bisacodyl (Dulcolax) 5 mg PO DAILY PRN PRN Reason: Constipation Docusate Sodium (Colace) 100 mg PO BID PRN PRN Reason: Constipation Enoxaparin Sodium (Lovenox) 40 mg SUBCUT DAILY [facility] Last Admin: 08/12/17 09:07 Dose: 40 mg Piperacillin Sod/Tazobactam (Sod 3.375 gm/ Sodium Chloride) 50 mls @ 100 mls/ hr IV Q6H [facility] Last Admin: 08/12/17 09:06 Dose: 100 mls/hr Vancomycin HCl 2 gm/ Sodium (Chloride) 500 mls @ 250 mls/hr IV Q12H [facility] Last Admin: 08/11/17 23:33 Dose: 250 mls/hr Insulin Aspart (Novolog) 0 unit SUBCUT TIDAC [facility] PRN Reason: Protocol Last Admin: 08/12/17 06:46 Dose: Not Given Temazepam (Restoril) 15 mg PO BEDTIME PRN PRN Reason: Sleep Vancomycin HCl (Pharmacy To Dose - Vancomycin) 1 dose .XX ASDIRECTED [facility] Discontinued Medications Vancomycin HCl 1 gm/ Sodium (Chloride) 250 mls @ 250 mls/hr IV ONETIME ONE Stop: 08/09/17 18:59 Last Admin: 08/09/17 18:11 Dose: 250 mls/hr Sodium Chloride (Normal Saline) 1,000 mls @ 125 mls/hr IV STAT ONE Stop: 08/10/17 01:59 Last Admin: 08/09/17 18:11 Dose: 125 mls/hr Magnesium Sulfate 2 gm/ Premix 50 mls @ 50 mls/hr IV ONETIME ONE Stop: 08/10/17 14:54 Last Admin: 08/10/17 14:16 Dose: 50 mls/hr Influenza Virus Vaccine (Pharmacy To Dose - Influenza Vaccine) 1 each IM ONETIME ONE Stop: 08/09/17 23:17 Influenza Virus Vaccine (Fluarix Quad [id number]) 60 mcg IM .ONCE ONE Stop: 11/10/17 10:01 - Exam General: Alert, Oriented, Cooperative, No Acute Distress Lungs: Clear to Auscultation, Normal Respiratory Effort Cardiovascular: Regular Rate, Regular Rhythm Extremities: Other (Erythema of left lower extremity has improved. Swelling has increased to 52 cm. Was previously 48 cm. Patient is ambulating with minimal pain.) Peripheral Pulses: 2+: Radial (L), Radial (R), Posterior Tibial (L), Posterior Tibial (R) Skin: Other (Erythema of left lower extremity is improving) Wound/Incisions: Erythema Improving (Left lower extremity) Psy/Mental Status: Alert, Normal Affect, Normal Mood - Problem List & Annotations (1) Cellulitis SNOMED Code(s): 651403168 Code(s): L03.90 - CELLULITIS, UNSPECIFIED Status: Acute Current Visit: Yes Qualifiers: Site of cellulitis: extremity Site of cellulitis of extremity: lower extremity Laterality: left Qualified Code(s): L03.116 - Cellulitis of left lower limb - Problem List Review Problem List Initiated/Reviewed/Updated: Yes - My Orders Last 24 Hours: My Active Orders 08/12/17 11:04 Magnesium Sulfate/Water [Magnesium Sulfate 2 GM in Water 50 ML] 2 gm Premix Bag 1 bag IV ONETIME - Plan Plan:: This 67 year old male admitted with LLE cellulitis #1. LLE cellulitis: Improving. Continue Vancomycin and Zosyn. Blood cultures are negative 2 days. White blood cell count has improved to 12.6. Swelling of left lower extremity has increased to 52 cm. Was previously 48 cm. Will repeat low extremity doppler secondary to increased swelling. #2. Diabetes: Continue metformin 1000 mg twice a day. Continue sliding scale NovoLog and daily Accu-Cheks. VTE prophylaxis: Lovenox. Dispo: potential discharge tomorrow.
[2017-08-12] MEDS: Vancomycin 2 GM in Sodium Chloride 0.9% 500 ML IV SCH (13:06)
[2017-08-12] MEDS: traMADol 50 MG Tab PO PRN (22:22)
[2017-08-13] MEDS: Vancomycin 2 GM in Sodium Chloride 0.9% 500 ML IV SCH ×2 (00:11→12:58)
[2017-08-13] MEDS: Piperacillin/Tazobactam 3.375 GM in Sodium Chloride 0.9% 50 ML IV SCH ×4 (02:28→21:29)
[2017-08-13 06:57] LABS: CHLORIDE,CL 108 mmol/L (98-110); SODIUM,NA 138 mmol/L (136-146)
[2017-08-13] MEDS: Insulin Aspart 100 Units/ML 3 ML Pen SUBCUT SCH ×3 (07:28→17:00)
[2017-08-13] MEDS: traMADol 50 MG Tab PO PRN ×2 (08:52→16:37)
[2017-08-13] MEDS: Enoxaparin 40 MG/0.4 ML Syringe SUBCUT SCH (08:53)
[2017-08-13] MEDS ORDERED: Sodium Chloride 0.9% 1,000 ML IV SCH (09:15)
[2017-08-13] MEDS ORDERED: Iopamidol 755 MG/ML 500 ML Multipack Bottle IVPUSH STA (09:34)
--- NOTE | 2017-08-13 09:51 | PCM.PN ---
- General Info Date of Service: 08/13/17 Admission Dx/Problem (Free Text): Admission Diagnosis/Problem Admission Diagnosis/Problem Cellulitis Subjective Update: Doing well this morning. No chest pain or SOB. Feels like leg is more warm today. Pain is about the same. Functional Status: Reports: Pain Controlled, Tolerating Diet, Ambulating, Urinating - Review of Systems General: Reports: No Symptoms. Denies: Fever HEENT: Reports: No Symptoms, Headaches. Denies: Sore Throat, Rhinitis Pulmonary: Reports: No Symptoms. Denies: Shortness of Breath, Cough, Sputum, Hemoptysis Cardiovascular: Reports: No Symptoms. Denies: Chest Pain, Edema Gastrointestinal: Reports: No Symptoms. Denies: Abdominal Pain, Nausea, Vomiting Genitourinary: Reports: No Symptoms. Denies: Dysuria, Frequency, Burning Musculoskeletal: Reports: No Symptoms. Denies: Neck Pain Neurological: Reports: No Symptoms. Denies: Confusion Psychiatric: Reports: No Symptoms. Denies: Confusion - Patient Data Vitals - Most Recent: Last Vital Signs Temp 98.0 F 08/13/17 08:00 Pulse 74 08/13/17 08:00 Resp 20 08/13/17 08:00 BP 135/79 08/13/17 08:00 Pulse Ox 93 L 08/13/17 08:00 Weight - Most Recent: 145.921 kg I&O - Last 24 Hours: Intake & Output 08/12/17 08/13/17 08/13/17 22:59 06:59 14:59 Intake Total 2428 1060 Balance 2428 1060 Lab Results Last 24 Hours: Laboratory Results - last 24 hr 08/12/17 08/12/17 08/12/17 Range/Units 06:37 11:38 15:57 WBC (4.0-11.0) K/uL RBC (4.50-5.90) M/uL Hgb (13.0-17.0) g/dL Hct (38.0-50.0) % MCV (80.0-98.0) fL MCH (27.0-32.0) pg MCHC (31.0-37.0) g/dL RDW Std Deviation (28.0-62.0) fl RDW Coeff of Yasmani (11.0-15.0) % Plt Count (150-400) K/uL MPV (7.40-12.00) fL Add Manual Diff Neutrophils % (Manual) (48.0-80.0) % Band Neutrophils % % Lymphocytes % (Manual) (16.0-40.0) % Monocytes % (Manual) (0.0-15.0) % Eosinophils % (Manual) (0.0-7.0) % Basophils % (Manual) (0.0-1.5) % Nucleated RBC % /100WBC Absolute Seg Neuts (1.4-5.7) Band Neutrophils # Lymphocytes # (Manual) (0.6-2.4) Monocytes # (Manual) (0.0-0.8) Eosinophils # (Manual) (0.0-0.7) Basophils # (Manual) (0.0-0.1) Nucleated RBCs # K/uL Sodium (136-146) mmol/L Potassium (3.5-5.1) mmol/L Chloride (98-110) mmol/L Carbon Dioxide (21-31) mmol/L BUN (6.0-23.0) mg/dL Creatinine (0.6-1.5) mg/dL Est Cr Clr Drug Dosing mL/min Estimated GFR (MDRD) ml/min Glucose (60-110) mg/dL POC Glucose 128 H 154 H 134 H (60-110) mg/dL Calcium (8.8-10.8) mg/dL Magnesium (1.5-2.3) mEq/L 08/13/17 08/13/17 08/13/17 Range/Units 06:02 06:30 06:30 WBC 12.23 H (4.0-11.0) K/uL RBC 3.61 L (4.50-5.90) M/uL Hgb 12.5 L (13.0-17.0) g/dL Hct 36.7 L (38.0-50.0) % MCV 101.7 H (80.0-98.0) fL MCH 34.6 H (27.0-32.0) pg MCHC 34.1 (31.0-37.0) g/dL RDW Std Deviation 49.6 (28.0-62.0) fl RDW Coeff of Yasmani 13 (11.0-15.0) % Plt Count 226 (150-400) K/uL MPV 9.40 (7.40-12.00) fL Add Manual Diff YES Neutrophils % (Manual) 64 (48.0-80.0) % Band Neutrophils % 6 % Lymphocytes % (Manual) 16 (16.0-40.0) % Monocytes % (Manual) 6 (0.0-15.0) % Eosinophils % (Manual) 7 (0.0-7.0) % Basophils % (Manual) 1 (0.0-1.5) % Nucleated RBC % 0.0 /100WBC Absolute Seg Neuts 7.8 H (1.4-5.7) Band Neutrophils # 0.7 Lymphocytes # (Manual) 2.0 (0.6-2.4) Monocytes # (Manual) 0.7 (0.0-0.8) Eosinophils # (Manual) 0.9 H (0.0-0.7) Basophils # (Manual) 0.1 (0.0-0.1) Nucleated RBCs # 0 K/uL Sodium 138 (136-146) mmol/L Potassium 4.0 (3.5-5.1) mmol/L Chloride 108 (98-110) mmol/L Carbon Dioxide 23 (21-31) mmol/L BUN 8 (6.0-23.0) mg/dL Creatinine 0.7 (0.6-1.5) mg/dL Est Cr Clr Drug Dosing 112.40 mL/min Estimated GFR (MDRD) > 60.0 ml/min Glucose 134 H (60-110) mg/dL POC Glucose 128 H (60-110) mg/dL Calcium 8.4 L (8.8-10.8) mg/dL Magnesium (1.5-2.3) mEq/L 08/13/17 Range/Units 06:30 WBC (4.0-11.0) K/uL RBC (4.50-5.90) M/uL Hgb (13.0-17.0) g/dL Hct (38.0-50.0) % MCV (80.0-98.0) fL MCH (27.0-32.0) pg MCHC (31.0-37.0) g/dL RDW Std Deviation (28.0-62.0) fl RDW Coeff of Yasmani (11.0-15.0) % Plt Count (150-400) K/uL MPV (7.40-12.00) fL Add Manual Diff Neutrophils % (Manual) (48.0-80.0) % Band Neutrophils % % Lymphocytes % (Manual) (16.0-40.0) % Monocytes % (Manual) (0.0-15.0) % Eosinophils % (Manual) (0.0-7.0) % Basophils % (Manual) (0.0-1.5) % Nucleated RBC % /100WBC Absolute Seg Neuts (1.4-5.7) Band Neutrophils # Lymphocytes # (Manual) (0.6-2.4) Monocytes # (Manual) (0.0-0.8) Eosinophils # (Manual) (0.0-0.7) Basophils # (Manual) (0.0-0.1) Nucleated RBCs # K/uL Sodium (136-146) mmol/L Potassium (3.5-5.1) mmol/L Chloride (98-110) mmol/L Carbon Dioxide (21-31) mmol/L BUN (6.0-23.0) mg/dL Creatinine (0.6-1.5) mg/dL Est Cr Clr Drug Dosing mL/min Estimated GFR (MDRD) ml/min Glucose (60-110) mg/dL POC Glucose (60-110) mg/dL Calcium (8.8-10.8) mg/dL Magnesium 1.6 (1.5-2.3) mEq/L Med Orders - Current: Current Medications Acetaminophen (Tylenol) 650 mg PO Q4H PRN PRN Reason: Pain (Mild 1-3)/fever Last Admin: 08/12/17 17:35 Dose: 650 mg Bisacodyl (Dulcolax) 5 mg PO DAILY PRN PRN Reason: Constipation Docusate Sodium (Colace) 100 mg PO BID PRN PRN Reason: Constipation Enoxaparin Sodium (Lovenox) 40 mg SUBCUT DAILY [facility] Last Admin: 08/13/17 08:53 Dose: 40 mg Piperacillin Sod/Tazobactam (Sod 3.375 gm/ Sodium Chloride) 50 mls @ 100 mls/ hr IV Q6H [facility] Last Admin: 08/13/17 08:53 Dose: 100 mls/hr Vancomycin HCl 2 gm/ Sodium (Chloride) 500 mls @ 250 mls/hr IV Q12H [facility] Last Admin: 08/13/17 00:11 Dose: 250 mls/hr Sodium Chloride (Normal Saline) 1,000 mls @ 100 mls/hr IV ASDIRECTED [facility] Stop: 08/13/17 19:14 Insulin Aspart (Novolog) 0 unit SUBCUT TIDAC [facility] PRN Reason: Protocol Last Admin: 08/13/17 07:28 Dose: Not Given Temazepam (Restoril) 15 mg PO BEDTIME PRN PRN Reason: Sleep Tramadol HCl (Ultram) 100 mg PO Q4H PRN PRN Reason: Pain Last Admin: 08/13/17 08:52 Dose: 100 mg Vancomycin HCl (Pharmacy To Dose - Vancomycin) 1 dose .XX ASDIRECTED [facility] Discontinued Medications Vancomycin HCl 1 gm/ Sodium (Chloride) 250 mls @ 250 mls/hr IV ONETIME ONE Stop: 08/09/17 18:59 Last Admin: 08/09/17 18:11 Dose: 250 mls/hr Sodium Chloride (Normal Saline) 1,000 mls @ 125 mls/hr IV STAT ONE Stop: 08/10/17 01:59 Last Admin: 08/09/17 18:11 Dose: 125 mls/hr Magnesium Sulfate 2 gm/ Premix 50 mls @ 50 mls/hr IV ONETIME ONE Stop: 08/10/17 14:54 Last Admin: 08/10/17 14:16 Dose: 50 mls/hr Magnesium Sulfate 2 gm/ Premix 50 mls @ 50 mls/hr IV ONETIME ONE Stop: 08/12/17 12:03 Last Admin: 08/12/17 12:02 Dose: 50 mls/hr Influenza Virus Vaccine (Pharmacy To Dose - Influenza Vaccine) 1 each IM ONETIME ONE Stop: 08/09/17 23:17 Influenza Virus Vaccine (Fluarix Quad [id number]) 60 mcg IM .ONCE ONE Stop: 08/10/17 10:01 Iopamidol (Isovue Multipack-370 (76%)) 100 ml IVPUSH ONETIME STA Stop: 08/13/17 09:35 Last Admin: 08/13/17 09:35 Dose: 100 ml - Exam General: Alert, Oriented, Cooperative Neck: Supple Lungs: Clear to Auscultation, Normal Respiratory Effort Cardiovascular: Regular Rate, Regular Rhythm Extremities: Normal Range of Motion, Non-Tender, Normal Capillary Refill, Pedal Edema (+1 pitting edema to LLE) Skin: Dry (dry skin noted to bilateral lower legs.) Wound/Incisions: No Drainage, Erythema (continues and slightly more bright in color. Multiple, 20+ tiny pustules noted to ventral espinoza, none draining. There is an area of fluctuance, which was no present before, noted to medial ventral espinoza. Some increased tenderness to this area. ) Neurological: No New Focal Deficit Psy/Mental Status: Alert, Normal Affect, Normal Mood - Problem List & Annotations (1) Cellulitis SNOMED Code(s): 443451400 Code(s): L03.90 - CELLULITIS, UNSPECIFIED Status: Acute Current Visit: Yes Qualifiers: Site of cellulitis: extremity Site of cellulitis of extremity: lower extremity Laterality: left Qualified Code(s): L03.116 - Cellulitis of left lower limb (2) Obesity SNOMED Code(s): 409302202 Code(s): E66.9 - OBESITY, UNSPECIFIED Status: Acute Current Visit: No Qualifiers: Obesity classification: adult class 3 (BMI >= 40) Body mass index: BMI 40.0 -44.9 (3) DM2 (diabetes mellitus, type 2) SNOMED Code(s): 52605015 Code(s): E11.9 - TYPE 2 DIABETES MELLITUS WITHOUT COMPLICATIONS Status: Chronic Priority: High Current Visit: No Qualifiers: Diabetes mellitus complication status: without complication Diabetes mellitus senior living insulin use: without senior living use Qualified Code(s): E11.9 - Type 2 diabetes mellitus without complications - Problem List Review Problem List Initiated/Reviewed/Updated: Yes - My Orders Last 24 Hours: My Active Orders 08/13/17 09:11 Lower Leg w Cont Lt [CT] Urgent 08/13/17 09:15 Sodium Chloride 0.9% [Normal Saline] 1,000 ml IV ASDIRECTED - Plan Plan:: This 67 year old male admitted with LLE cellulitis #1. LLE cellulitis: Pustules noted to espinoza today with area of concern for fluctuance. Will obtain CT of LLE now. Continue Vancomycin and Zosyn. Blood cultures remain negative. Leukocytosis remains 12,000. Afebrile. Swelling of left lower extremity has increased. If abscess present will need to consult surgery for I/D. #2. Diabetes: Continue sliding scale Novolog and TIDAC blood sugar checks. Holding Metformin while in hospital. VTE prophylaxis: Lovenox. Dispo: Pending improvement. Will await CT findings.
--- NOTE | 2017-08-13 13:00 | US ---
ULTRASOUND EXAMINATION OF the left lower extremity WITH DOPPLER HISTORY: Swelling FINDINGS: Examination of the left leg was performed from the groin to the calf region. All visualized segments including common femoral, proximal greater saphenous, superficial femoral, popliteal and calf veins appear patent with good compressibility and augmentation. There is no evidence of deep vein thrombos is. IMPRESSION: No evidence of a DVT.
--- NOTE | 2017-08-13 14:46 | CT ---
EXAMINATION: CT left lower leg with contrast HISTORY: Cellulitis COMPARISON: Radiograph dated 06/26/2017 TECHNIQUE: Axial CT images obtained through the left lower leg following the administration of 100 mL of Isovue-370 in the right antecubital fossa. Coronal and sagittal reconstructions obtained. FINDINGS: There is soft tissue edema noted throughout the left lower extremity with skin thickening m ost prominent within the anterolateral aspect of the left lower leg. There is no organized fluid collections suggest an abscess. No subcutan eous gas lower fascial enhancement. Mild vascular calcifications are noted. There are a few Varicosities noted within the lateral aspect of the lower leg. There is moderate to severe joint space narrowing within the medial compartment. 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 No suprapatellar joint effusion. IMPRESSION: 1. Soft tissue swelling and skin thickening within the left lower leg most prominent along the arun lateral aspect of the knee, correlate for cellulitis. No evidence of a fluid collection to suggest an abscess.
[2017-08-14] MEDS: Vancomycin 2 GM in Sodium Chloride 0.9% 500 ML IV SCH ×4 (00:48→23:41)
[2017-08-14] MEDS: Piperacillin/Tazobactam 3.375 GM in Sodium Chloride 0.9% 50 ML IV SCH ×4 (03:25→20:31)
[2017-08-14 06:00] LABS: CHLORIDE,CL 108 mmol/L (98-110); SODIUM,NA 139 mmol/L (136-146)
[2017-08-14] MEDS: Enoxaparin 40 MG/0.4 ML Syringe SUBCUT SCH (08:14)
[2017-08-14] MEDS: Insulin Aspart 100 Units/ML 3 ML Pen SUBCUT SCH ×3 (08:26→17:50)
--- NOTE | 2017-08-14 11:42 | PCM.PN ---
- General Info Date of Service: 08/14/17 Admission Dx/Problem (Free Text): Admission Diagnosis/Problem Admission Diagnosis/Problem Cellulitis Subjective Update: Doing well today, reports pain to leg is improved and feels swelling is a little better. No chest pain or SOB. Functional Status: Reports: Pain Controlled, Tolerating Diet, Ambulating, Urinating - Review of Systems Pulmonary: Reports: No Symptoms. Denies: Shortness of Breath, Cough, Sputum Cardiovascular: Reports: Edema (LLE). Denies: Chest Pain, Palpitations Gastrointestinal: Reports: No Symptoms. Denies: Abdominal Pain, Nausea, Vomiting Genitourinary: Reports: No Symptoms. Denies: Dysuria, Frequency, Burning Neurological: Reports: No Symptoms Psychiatric: Reports: No Symptoms - Patient Data Vitals - Most Recent: Last Vital Signs Temp 98.3 F 08/14/17 08:00 Pulse 81 08/14/17 08:00 Resp 20 08/14/17 08:00 BP 138/66 08/14/17 08:00 Pulse Ox 92 L 08/14/17 08:00 Weight - Most Recent: 145.921 kg I&O - Last 24 Hours: Intake & Output 08/13/17 08/14/17 08/14/17 22:59 06:59 14:59 Intake Total 980 1800 Output Total 300 1350 Balance 680 450 Lab Results Last 24 Hours: Laboratory Results - last 24 hr 08/13/17 08/13/17 08/14/17 Range/Units 11:41 16:25 04:39 WBC 10.51 (4.0-11.0) K/uL RBC 3.58 L (4.50-5.90) M/uL Hgb 12.2 L (13.0-17.0) g/dL Hct 36.6 L (38.0-50.0) % MCV 102.2 H (80.0-98.0) fL MCH 34.1 H (27.0-32.0) pg MCHC 33.3 (31.0-37.0) g/dL RDW Std Deviation 50.5 (28.0-62.0) fl RDW Coeff of Yasmani 14 (11.0-15.0) % Plt Count 254 (150-400) K/uL MPV 9.50 (7.40-12.00) fL Add Manual Diff YES Neutrophils % (Manual) 59 (48.0-80.0) % Band Neutrophils % 11 % Lymphocytes % (Manual) 19 (16.0-40.0) % Monocytes % (Manual) 9 (0.0-15.0) % Eosinophils % (Manual) 1 (0.0-7.0) % Basophils % (Manual) 1 (0.0-1.5) % Nucleated RBC % 0.0 /100WBC Absolute Seg Neuts 6.2 H (1.4-5.7) Band Neutrophils # 1.2 Lymphocytes # (Manual) 2.0 (0.6-2.4) Monocytes # (Manual) 0.9 H (0.0-0.8) Eosinophils # (Manual) 0.1 (0.0-0.7) Basophils # (Manual) 0.1 (0.0-0.1) Nucleated RBCs # 0 K/uL Sodium (136-146) mmol/L Potassium (3.5-5.1) mmol/L Chloride (98-110) mmol/L Carbon Dioxide (21-31) mmol/L BUN (6.0-23.0) mg/dL Creatinine (0.6-1.5) mg/dL Est Cr Clr Drug Dosing mL/min Estimated GFR (MDRD) ml/min Glucose (60-110) mg/dL POC Glucose 125 H 132 H (60-110) mg/dL Calcium (8.8-10.8) mg/dL Magnesium (1.5-2.3) mEq/L 08/14/17 08/14/17 Range/Units 04:39 05:53 WBC (4.0-11.0) K/uL RBC (4.50-5.90) M/uL Hgb (13.0-17.0) g/dL Hct (38.0-50.0) % MCV (80.0-98.0) fL MCH (27.0-32.0) pg MCHC (31.0-37.0) g/dL RDW Std Deviation (28.0-62.0) fl RDW Coeff of Yasmani (11.0-15.0) % Plt Count (150-400) K/uL MPV (7.40-12.00) fL Add Manual Diff Neutrophils % (Manual) (48.0-80.0) % Band Neutrophils % % Lymphocytes % (Manual) (16.0-40.0) % Monocytes % (Manual) (0.0-15.0) % Eosinophils % (Manual) (0.0-7.0) % Basophils % (Manual) (0.0-1.5) % Nucleated RBC % /100WBC Absolute Seg Neuts (1.4-5.7) Band Neutrophils # Lymphocytes # (Manual) (0.6-2.4) Monocytes # (Manual) (0.0-0.8) Eosinophils # (Manual) (0.0-0.7) Basophils # (Manual) (0.0-0.1) Nucleated RBCs # K/uL Sodium 139 (136-146) mmol/L Potassium 4.3 (3.5-5.1) mmol/L Chloride 108 (98-110) mmol/L Carbon Dioxide 22 (21-31) mmol/L BUN 7 (6.0-23.0) mg/dL Creatinine 0.7 (0.6-1.5) mg/dL Est Cr Clr Drug Dosing 112.40 mL/min Estimated GFR (MDRD) > 60.0 ml/min Glucose 158 H (60-110) mg/dL POC Glucose 140 H (60-110) mg/dL Calcium 7.9 L (8.8-10.8) mg/dL Magnesium 1.5 (1.5-2.3) mEq/L Med Orders - Current: Current Medications Acetaminophen (Tylenol) 650 mg PO Q4H PRN PRN Reason: Pain (Mild 1-3)/fever Last Admin: 08/12/17 17:35 Dose: 650 mg Bisacodyl (Dulcolax) 5 mg PO DAILY PRN PRN Reason: Constipation Docusate Sodium (Colace) 100 mg PO BID PRN PRN Reason: Constipation Enoxaparin Sodium (Lovenox) 40 mg SUBCUT DAILY [facility] Last Admin: 08/14/17 08:14 Dose: 40 mg Piperacillin Sod/Tazobactam (Sod 3.375 gm/ Sodium Chloride) 50 mls @ 100 mls/ hr IV Q6H [facility] Last Admin: 08/14/17 08:14 Dose: 100 mls/hr Vancomycin HCl 2 gm/ Sodium (Chloride) 500 mls @ 250 mls/hr IV Q12H [facility] Last Admin: 08/14/17 00:48 Dose: 250 mls/hr Insulin Aspart (Novolog) 0 unit SUBCUT TIDAC [facility] PRN Reason: Protocol Last Admin: 08/14/17 08:26 Dose: Not Given Temazepam (Restoril) 15 mg PO BEDTIME PRN PRN Reason: Sleep Tramadol HCl (Ultram) 100 mg PO Q4H PRN PRN Reason: Pain Last Admin: 08/13/17 16:37 Dose: 100 mg Vancomycin HCl (Pharmacy To Dose - Vancomycin) 1 dose .XX ASDIRECTED [facility] Discontinued Medications Vancomycin HCl 1 gm/ Sodium (Chloride) 250 mls @ 250 mls/hr IV ONETIME ONE Stop: 08/09/17 18:59 Last Admin: 08/09/17 18:11 Dose: 250 mls/hr Sodium Chloride (Normal Saline) 1,000 mls @ 125 mls/hr IV STAT ONE Stop: 08/10/17 01:59 Last Admin: 08/09/17 18:11 Dose: 125 mls/hr Magnesium Sulfate 2 gm/ Premix 50 mls @ 50 mls/hr IV ONETIME ONE Stop: 08/10/17 14:54 Last Admin: 08/10/17 14:16 Dose: 50 mls/hr Magnesium Sulfate 2 gm/ Premix 50 mls @ 50 mls/hr IV ONETIME ONE Stop: 08/12/17 12:03 Last Admin: 08/12/17 12:02 Dose: 50 mls/hr Sodium Chloride (Normal Saline) 1,000 mls @ 100 mls/hr IV ASDIRECTED [facility] Stop: 08/13/17 19:14 Last Admin: 08/13/17 12:58 Dose: 100 mls/hr Influenza Virus Vaccine (Pharmacy To Dose - Influenza Vaccine) 1 each IM ONETIME ONE Stop: 08/09/17 23:17 Influenza Virus Vaccine (Fluarix Quad [id number]) 60 mcg IM .ONCE ONE Stop: 08/10/17 10:01 Iopamidol (Isovue Multipack-370 (76%)) 100 ml IVPUSH ONETIME STA Stop: 08/13/17 09:35 Last Admin: 08/13/17 09:35 Dose: 100 ml - Exam General: Alert, Oriented, Cooperative, No Acute Distress Neck: Supple Lungs: Clear to Auscultation, Normal Respiratory Effort Cardiovascular: Regular Rate, Regular Rhythm Extremities: Normal Inspection, Normal Range of Motion, Non-Tender, Normal Capillary Refill, Pedal Edema (+1 pitting edema to LLE) Wound/Incisions: Drainage (scant purulent drainage to tiny pustules on ventral lower leg. No fluctuance noted today as yesterday.), Erythema Improving, Other ( Edema improving, wrinkling of skin noted. ) Neurological: No New Focal Deficit Psy/Mental Status: Alert, Normal Affect, Normal Mood - Problem List & Annotations (1) Cellulitis SNOMED Code(s): 180716497 Code(s): L03.90 - CELLULITIS, UNSPECIFIED Status: Acute Current Visit: Yes Qualifiers: Site of cellulitis: extremity Site of cellulitis of extremity: lower extremity Laterality: left Qualified Code(s): L03.116 - Cellulitis of left lower limb (2) Obesity SNOMED Code(s): 443403553 Code(s): E66.9 - OBESITY, UNSPECIFIED Status: Acute Current Visit: No Qualifiers: Obesity classification: adult class 3 (BMI >= 40) Body mass index: BMI 40.0 -44.9 (3) DM2 (diabetes mellitus, type 2) SNOMED Code(s): 62644344 Code(s): E11.9 - TYPE 2 DIABETES MELLITUS WITHOUT COMPLICATIONS Status: Chronic Priority: High Current Visit: No Qualifiers: Diabetes mellitus complication status: without complication Diabetes mellitus [facility] insulin use: without [facility] use Qualified Code(s): E11.9 - Type 2 diabetes mellitus without complications - Problem List Review Problem List Initiated/Reviewed/Updated: Yes - My Orders Last 24 Hours: My Active Orders 08/13/17 13:20 CULTURE WOUND [RM] Routine 08/15/17 05:00 BASIC METABOLIC PANEL,BMP [CHEM] DAILY CBC WITH AUTO DIFF [HEME] DAILY MAGNESIUM [CHEM] DAILY 08/16/17 05:00 BASIC METABOLIC PANEL,BMP [CHEM] DAILY CBC WITH AUTO DIFF [HEME] DAILY MAGNESIUM [CHEM] DAILY - Plan Plan:: This 67 year old male admitted with LLE cellulitis #1. LLE cellulitis: Pustules cotinue to drain spontaneously. CT of LLE negative for abscess or gas, soft tissue swelling noted. VTE negative per repeat doppler. Culture of purulent drainage pending. Would like to see this prior to discharge due to severity of cellulitis and slow improvement. Continue Vancomycin and Zosyn. Blood cultures remain negative. Leukocytosis improved today now 10,000. Afebrile. Swelling of left lower extremity decreasing. #2. Diabetes: Stable. Continue sliding scale Novolog and TIDAC blood sugar checks. Holding Metformin while in hospital. VTE prophylaxis: Lovenox. Dispo: 1-2 days pending culture results.
[2017-08-14] MEDS ORDERED: Iopamidol 612 MG/ML 100 ML Bottle IVPUSH STA (12:53)
[2017-08-14] MEDS ORDERED: Sodium Chloride 0.9% 500 ML IV SCH ×2 (13:00)
[2017-08-14] MEDS: traMADol 50 MG Tab PO PRN (16:30)
--- NOTE | 2017-08-14 17:01 | CT ---
CT of the abdomen and pelvis with contrast. HISTORY: Swelling TECHNIQUE: Axial CT images were obtained of the abdomen and pelvis following administration of 100 mL of Isovue-300 without complication. Coronal and sagittal reconstructions obtained. FINDINGS: The lung bases are clear, no pleural effusion. The liver, spleen, adrenal glands appear grossly normal. Cholelithiasis noted within a decompressed g allbladder. No bulky retroperitoneal lymphadenopathy or abdominal ascites. The kidneys enhance and function symmetrically without evidence of obstructive uropathy. Peripelvic a nd renal cortical cysts are noted bilaterally. The large and small bowel are normal in caliber without evidence of obstruction. No focal pericolonic or pericecal inflammation or stranding. There is a mild chilo mesentery appearance the urinary bladd er appears normal. There are a few borderline left iliac chain and inguinal lymph nodes noted. There is mild stranding noted adjacent to the lymph nodes within the inguinal region. The visualized femora l vein and iliac veins appear grossly patent. No suspicious osseous abnormalities identified. Degenerative changes noted within the hips. IMPRESSION: 1. No evidence of a central obstructing mass or TVT. 2. Mildly prominent left iliac chain and left inguinal lymph nodes with adjacent stranding. These fin dings favor an infectious process of the left lower extremity. 3. Cholelithiasis without evidence of cholecystitis.
[2017-08-15] MEDS: Piperacillin/Tazobactam 3.375 GM in Sodium Chloride 0.9% 50 ML IV SCH ×3 (03:06→15:33)
[2017-08-15 06:27] LABS: CHLORIDE,CL 109 mmol/L (98-110); SODIUM,NA 140 mmol/L (136-146)
[2017-08-15] MEDS: traMADol 50 MG Tab PO PRN (06:54)
[2017-08-15] MEDS: Insulin Aspart 100 Units/ML 3 ML Pen SUBCUT SCH ×2 (07:39→11:29)
[2017-08-15] MEDS: Enoxaparin 40 MG/0.4 ML Syringe SUBCUT SCH (09:25)
[2017-08-15] MEDS: Vancomycin 2 GM in Sodium Chloride 0.9% 500 ML IV SCH (11:10)
[2017-08-15 13:26] VITALS: BP 141/77
--- NOTE | 2017-08-15 16:08 | PCM.DCSUM1 ---
Discharge Summary - Hospital Course Brief History: This 67 nalya old male with pmh of DM type 2, obesity and hypercholesterolemia presented to the ED from [facility] clinic with a two day history of left leg pain and swelling and redness. He reports subjective fevers and chills at home with swelling to his L lower leg. No pain with joint movement. He denies trauma, but notes having very dry skin to lower legs. In the ED Leukocytosies, 17,000 noted. BMP WNL. Elevated glucose. Venous doppler in the ED was negative for deep venous thrombosis. BC were obtained. He was Vancomycin and admitted for left lower leg cellulitis. - Discharge Data Discharge Date: 08/15/17 Discharge Disposition: Home, Self-Care 01 Condition: Stable - Discharge Diagnosis/Problem(s) (1) Cellulitis SNOMED Code(s): 630320998 ICD Code: L03.90 - CELLULITIS, UNSPECIFIED Status: Acute Current Visit: Yes Qualifiers: Site of cellulitis: extremity Site of cellulitis of extremity: lower extremity Laterality: left Qualified Code(s): L03.116 - Cellulitis of left lower limb (2) Obesity SNOMED Code(s): 665799605 ICD Code: E66.9 - OBESITY, UNSPECIFIED Status: Acute Current Visit: No Qualifiers: Obesity classification: adult class 3 (BMI >= 40) Body mass index: BMI 40.0 -44.9 (3) DM2 (diabetes mellitus, type 2) SNOMED Code(s): 44032363 ICD Code: E11.9 - TYPE 2 DIABETES MELLITUS WITHOUT COMPLICATIONS Status: Chronic Priority: High Current Visit: No Qualifiers: Diabetes mellitus complication status: without complication Diabetes mellitus retirement insulin use: without terminal manager use Qualified Code(s): E11.9 - Type 2 diabetes mellitus without complications - Patient Instructions Diet: Diabetic Diet Activity: Elevate Extremity, No Strenuous Activities Showering/Bathing: May Shower Notify Provider of: Fever, Increased Pain, Swelling and Redness, Drainage, Nausea and/or Vomiting Other/Special Instructions: Monitor for rash, if blistering rash appears stop antiobiotics and call primary care provider right away, especially if rash is on your face or near your eyes. No work for 1 week, keep leg elevated for most of day to help decrease swelling. - Discharge Plan Prescriptions/Med Rec: Amoxicillin/Potassium Clav [Augmentin 126-125 Tablet] 1 each PO BID #14 tablet metFORMIN HCl [Metformin HCl] 1,000 mg PO TIDMEALS #90 tablet Sulfamethoxazole/Trimethoprim [Bactrim Ds Tablet] 1 each PO BID #14 tablet traMADol [Ultram] 50 mg PO Q4H PRN #30 tablet PRN Reason: Pain Home Medications: Home Meds Latanoprost [Xalatan 0.005% Ophth Soln] 2.5 ml EYEBOTH BEDTIME 08/10/17 [History ] atorvaSTATin Calcium [Atorvastatin Calcium] 40 mg PO DAILY 08/10/17 [History] Amoxicillin/Potassium Clav [Augmentin 875-125 Tablet] 1 each PO BID #14 tablet 08/15/17 [Rx] Sulfamethoxazole/Trimethoprim [Bactrim Ds Tablet] 1 each PO BID #14 tablet 08/15 [Rx] metFORMIN HCl [Metformin HCl] 1,000 mg PO TIDMEALS #90 tablet 08/15/17 [Rx] traMADol [Ultram] 50 mg PO Q4H PRN #30 tablet 08/15/17 [Rx] Patient Handouts: Cellulitis, Adult, [id number] [facility] - Discharge Summary/Plan Comment DC Time >30 min.: No Discharge Summary/Plan Comment: Discharge Diagnoses: Left lower leg cellulitis Dm type 2 Hypercholesterolemia Neel bang admitted and treated with vancomycin and Zosyn for left lower leg cellulitis. There was initial improvement and leukocytosis improved to 12,000. On day 3 of admission, pustules were noted to anterior portion of L espinoza, these were cultured, which did return as skin gifty only. Today pustules are all gone. Swelling did inccrease slightly with no increase in pain. Doppler again was negative and CT to L lower extremity was completed, NO abscess or gas noted and no deep or high up VTE noted. Lymphadenopathy noted to L inguinal lymph nodes, which would correlated with L lower leg cellulitis. Today leukocytosis is complete resolved, 9,000. He is afebrile. BC negative. He will be discharged home on Augmentin and bactrim for 7 more days. He is to stay off his feet and keep legs elevated most of the day to reduce edema. Work release x 1 week given. He is to follow up with PCP in 1 week. His Metformin was increased to 1000 mg BID due to elevated A1c at 6.7 and infection. He was also given Tramadol for pain PRN. He is to return to clinic of ED if concerns should arise. - General Info Date of Service: 08/15/17 Admission Dx/Problem (Free Text: Admission Diagnosis/Problem Admission Diagnosis/Problem Cellulitis Subjective Update: DOing better today, pain is minimal. No chest pain or SOB. Swelling improving as he keeps leg elevated. Functional Status: Reports: Pain Controlled, Tolerating Diet, Ambulating, Urinating - Review of Systems Pulmonary: Reports: No Symptoms. Denies: Shortness of Breath Cardiovascular: Reports: No Symptoms. Denies: Chest Pain, Palpitations Gastrointestinal: Reports: No Symptoms. Denies: Abdominal Pain, Nausea, Vomiting Genitourinary: Reports: No Symptoms. Denies: Dysuria, Frequency, Burning Musculoskeletal: Reports: Leg Pain (Tenderness, but improving to L lower leg) - Patient Data Vitals - Most Recent: Last Vital Signs Temp 98.1 F 08/15/17 12:00 Pulse 64 08/15/17 12:00 Resp 20 08/15/17 12:00 BP 141/77 H 08/15/17 12:00 Pulse Ox 94 L 08/15/17 12:00 Weight - Most Recent: 145.921 kg I&O - Last 24 hours: Intake & Output 08/15/17 08/15/17 08/15/17 06:59 14:59 22:59 Intake Total 1150 50 300 Output Total 630 700 Balance 520 50 -400 Lab Results - Last 24 hrs: Laboratory Results - last 24 hr 08/14/17 08/14/17 08/15/17 Range/Units 11:47 17:50 05:15 WBC 9.46 (4.0-11.0) K/uL RBC 3.65 L (4.50-5.90) M/uL Hgb 12.5 L (13.0-17.0) g/dL Hct 37.7 L (38.0-50.0) % MCV 103.3 H (80.0-98.0) fL MCH 34.2 H (27.0-32.0) pg MCHC 33.2 (31.0-37.0) g/dL RDW Std Deviation 50.5 (28.0-62.0) fl RDW Coeff of Yasmani 14 (11.0-15.0) % Plt Count 253 (150-400) K/uL MPV 9.50 (7.40-12.00) fL Add Manual Diff YES Neutrophils % (Manual) 61 (48.0-80.0) % Band Neutrophils % 5 % Lymphocytes % (Manual) 24 (16.0-40.0) % Monocytes % (Manual) 6 (0.0-15.0) % Eosinophils % (Manual) 4 (0.0-7.0) % Nucleated RBC % 0.0 /100WBC Absolute Seg Neuts 5.8 H (1.4-5.7) Band Neutrophils # 0.5 Lymphocytes # (Manual) 2.3 (0.6-2.4) Monocytes # (Manual) 0.6 (0.0-0.8) Eosinophils # (Manual) 0.4 (0.0-0.7) Nucleated RBCs # 0 K/uL Sodium (136-146) mmol/L Potassium (3.5-5.1) mmol/L Chloride (98-110) mmol/L Carbon Dioxide (21-31) mmol/L BUN (6.0-23.0) mg/dL Creatinine (0.6-1.5) mg/dL Est Cr Clr Drug Dosing mL/min Estimated GFR (MDRD) ml/min Glucose (60-110) mg/dL POC Glucose 143 H 114 H (60-110) mg/dL Calcium (8.8-10.8) mg/dL Magnesium (1.5-2.3) mEq/L 08/15/17 08/15/17 08/15/17 Range/Units 05:15 06:45 11:15 WBC (4.0-11.0) K/uL RBC (4.50-5.90) M/uL Hgb (13.0-17.0) g/dL Hct (38.0-50.0) % MCV (80.0-98.0) fL MCH (27.0-32.0) pg MCHC (31.0-37.0) g/dL RDW Std Deviation (28.0-62.0) fl RDW Coeff of Yasmani (11.0-15.0) % Plt Count (150-400) K/uL MPV (7.40-12.00) fL Add Manual Diff Neutrophils % (Manual) (48.0-80.0) % Band Neutrophils % % Lymphocytes % (Manual) (16.0-40.0) % Monocytes % (Manual) (0.0-15.0) % Eosinophils % (Manual) (0.0-7.0) % Nucleated RBC % /100WBC Absolute Seg Neuts (1.4-5.7) Band Neutrophils # Lymphocytes # (Manual) (0.6-2.4) Monocytes # (Manual) (0.0-0.8) Eosinophils # (Manual) (0.0-0.7) Nucleated RBCs # K/uL Sodium 140 (136-146) mmol/L Potassium 4.2 (3.5-5.1) mmol/L Chloride 109 (98-110) mmol/L Carbon Dioxide 22 (21-31) mmol/L BUN 5 L (6.0-23.0) mg/dL Creatinine 0.7 (0.6-1.5) mg/dL Est Cr Clr Drug Dosing 112.40 mL/min Estimated GFR (MDRD) > 60.0 ml/min Glucose 140 H (60-110) mg/dL POC Glucose 120 H 111 H (60-110) mg/dL Calcium 7.9 L (8.8-10.8) mg/dL Magnesium 1.4 L (1.5-2.3) mEq/L JOHNIE Results - Last 24 hrs: Microbiology 08/13/17 13:20 Wound Culture - Final Leg, Left Skin Gifty Med Orders - Current: Current Medications Acetaminophen (Tylenol) 650 mg PO Q4H PRN PRN Reason: Pain (Mild 1-3)/fever Last Admin: 08/12/17 17:35 Dose: 650 mg Bisacodyl (Dulcolax) 5 mg PO DAILY PRN PRN Reason: Constipation Docusate Sodium (Colace) 100 mg PO BID PRN PRN Reason: Constipation Enoxaparin Sodium (Lovenox) 40 mg SUBCUT DAILY [facility] Last Admin: 08/15/17 09:25 Dose: 40 mg Piperacillin Sod/Tazobactam (Sod 3.375 gm/ Sodium Chloride) 50 mls @ 100 mls/ hr IV Q6H [facility] Last Admin: 08/15/17 15:33 Dose: 100 mls/hr Vancomycin HCl 2 gm/ Sodium (Chloride) 500 mls @ 250 mls/hr IV Q12H [facility] Last Admin: 08/15/17 11:10 Dose: 250 mls/hr Sodium Chloride (Normal Saline) 500 mls @ 250 mls/hr IV .BOLUS [facility] Last Admin: 08/14/17 13:10 Dose: 250 mls/hr Sodium Chloride (Normal Saline) 500 mls @ 250 mls/hr IV .BOLUS [facility] Last Admin: 08/14/17 16:25 Dose: 250 mls/hr Insulin Aspart (Novolog) 0 unit SUBCUT TIDAC [facility] PRN Reason: Protocol Last Admin: 08/15/17 11:29 Dose: Not Given Temazepam (Restoril) 15 mg PO BEDTIME PRN PRN Reason: Sleep Tramadol HCl (Ultram) 100 mg PO Q4H PRN PRN Reason: Pain Last Admin: 08/15/17 06:54 Dose: 100 mg Vancomycin HCl (Pharmacy To Dose - Vancomycin) 1 dose .XX ASDIRECTED [facility] Discontinued Medications Vancomycin HCl 1 gm/ Sodium (Chloride) 250 mls @ 250 mls/hr IV ONETIME ONE Stop: 08/09/17 18:59 Last Admin: 08/09/17 18:11 Dose: 250 mls/hr Sodium Chloride (Normal Saline) 1,000 mls @ 125 mls/hr IV STAT ONE Stop: 08/10/17 01:59 Last Admin: 08/09/17 18:11 Dose: 125 mls/hr Magnesium Sulfate 2 gm/ Premix 50 mls @ 50 mls/hr IV ONETIME ONE Stop: 08/10/17 14:54 Last Admin: 08/10/17 14:16 Dose: 50 mls/hr Magnesium Sulfate 2 gm/ Premix 50 mls @ 50 mls/hr IV ONETIME ONE Stop: 08/12/17 12:03 Last Admin: 08/12/17 12:02 Dose: 50 mls/hr Sodium Chloride (Normal Saline) 1,000 mls @ 100 mls/hr IV ASDIRECTED [facility] Stop: 08/13/17 19:14 Last Admin: 08/13/17 12:58 Dose: 100 mls/hr Influenza Virus Vaccine (Pharmacy To Dose - Influenza Vaccine) 1 each IM ONETIME ONE Stop: 08/09/17 23:17 Influenza Virus Vaccine (Fluarix Quad [id number]) 60 mcg IM .ONCE ONE Stop: 08/10/17 10:01 Last Admin: 08/15/17 15:57 Dose: Not Given Iopamidol (Isovue Multipack-370 (76%)) 100 ml IVPUSH ONETIME STA Stop: 08/13/17 09:35 Last Admin: 08/13/17 09:35 Dose: 100 ml Iopamidol (Isovue-300 (61%)) 100 ml IVPUSH ONETIME STA Stop: 08/14/17 12:54 Last Admin: 08/14/17 12:54 Dose: 100 ml - Exam Quality Assessment: Reports: DVT Prophylaxis General: Reports: Alert, Oriented, Cooperative Neck: Reports: Supple Lungs: Reports: Clear to Auscultation, Normal Respiratory Effort Cardiovascular: Reports: Regular Rate, Regular Rhythm GI/Abdominal Exam: Normal Bowel Sounds, Soft, Non-Tender, No Organomegaly, No Distention, No Abnormal Bruit, No Mass, Pelvis Stable Extremities: Normal Range of Motion, Pedal Edema (+2 pitting to LLE, improving with elevation. ) Wound/Incisions: Reports: Erythema Improving (Erythema improved, less bright red and not putting off as much heat today to LLE and foot, wraps circumferentially. All pustules gone. No further draning or sores. ) Psy/Mental Status: Reports: Alert, Normal Affect, Normal Mood *Q Meaningful Use (DIS) - VTE *Q VTE Criteria *Q: - Stroke *Q Stroke Criteria *Q: - AMI *Q AMI Criteria *Q:
== END 2017-08-15 16:20 | disposition home or self-care (01) | DRG 603 ==
LOC: MW.ED 16:46 → MW.MS 19:31 → OBSVTOIN 08-10 08:51
PROVIDERS: ADMIT Family Medicine; ATTEND Family Medicine
DX: L03.116 Cellulitis of left lower limb (principal); Z68.41 Body mass index [BMI] 40.0-44.9, adult; E11.9 Type 2 diabetes mellitus without complications; E66.9 Obesity, unspecified; E78.00 Pure hypercholesterolemia, unspecified; Z79.899 Other long term (current) drug therapy
CPT/HCPCS: 36415; 73620-26-LT; 73620-LT; 73701-26-LT; 73701-LT; 74177; 74177-26; 80048; 80053; 80202; 82962; 83036; 83605; 83735; 85025; 87040; 87070; 93971-26-LT; 93971-LT; 96361; 96365; 96366; 96372; 99283; 99285-25; A9270-GY; G0378; J1650; J1815-GY; J2543; J3370; J3475; J7040; J7050; Q9967

== ENCOUNTER 2021-08-07 13:50 | Inpatient (IN) | payer OTHER, MEDICARE ==
--- NOTE | 2021-08-07 14:13 | PCM.EKG ---
#1 Interpretation EKG Date: 08/07/21 Time: 15:04 Rhythm: NSR Rate (Beats/Min): 119 [place]: LAD-Left [place] Deviation P-Wave: Present QRS: Other (LAFB) ST-T: Normal QT: Normal Comparison: No Change (08/14/18) EKG Interpretation Comments: Sinus Rhythm with LAFB and LAD
[2021-08-07] MEDS ORDERED: Acetaminophen 500 MG Tab PO ONE (14:38)
[2021-08-07 14:45] LABS: BLOOD UREA NITROGEN,BUN 14 mg/dL (7.0-18.0); CARBON DIOXIDE,CO2 24.4 mmol/L (21.0-32.0); CHLORIDE,CL 98 mmol/L (98-107); GLUCOSE RANDOM 307 mg/dL (74-106); POTASSIUM,K 4.9 mmol/L (3.5-5.1); SODIUM,NA 132 mmol/L (136-148)
[2021-08-07] MEDS ORDERED: Lactated Ringers 1,000 ML IV SCH ×2 (14:45→15:00)
[2021-08-07 14:51] LABS: CORONAVIRUS COVID-19 NAA POSITIVE (NEGATIVE); INFLUENZA A NAA NEGATIVE (NEGATIVE); INFLUENZA B NAA NEGATIVE (NEGATIVE)
--- NOTE | 2021-08-07 14:55 | CR ---
Indication: Hypoxia. Technique: AP portable view of the chest. Comparison: None Findings: Patchy bilateral opacities are identified bilaterally. No pleural effusion or pneumothorax is identified. The heart is normal in size. Impression: Patchy bilateral opacities. COVID cannot be excluded Dictated by Leny Land MD @ 08/07/2021 2:54:01 PM (Electronically Signed)
[2021-08-07] MEDS ORDERED: REMDESIVIR 200 MG in Sodium Chloride 0.9% 250 ML IV ONE (15:03)
[2021-08-07] MEDS ORDERED: Dexamethasone 4 MG Tab PO ONE (15:12)
--- NOTE | 2021-08-07 15:14 | EDM.PDOC ---
ED HPI GENERAL MEDICAL PROBLEM - General Chief Complaint: Fever Stated Complaint: WEAKNESS Time Seen by Provider: 08/07/21 13:52 - History of Present Illness INITIAL COMMENTS - FREE TEXT/NARRATIVE: CHIEF COMPLAINT(S): Weakness HISTORY OF PRESENT ILLNESS: This is a 71-year-old man with a past medical history of diabetes mellitus and hyperlipidemia who comes to the emergency department with a chief complaint of weakness. Patient states that for the last 1 week he has been experiencing something. He states that he has been experiencing a nonproductive cough and was exposed to his grandson who had cold symptoms. He denies any shortness of breath, chest pain, lower extremity edema. He denies any fevers or chills. He states that over the last 2 days it has gotten worse to where he is unable to stand up. He states he just feels very weak. He states that he is not able to walk. He denies any rash, abdominal pain, nausea or vomiting. He states that he has been able to tolerate p.o. In addition he states that he has not had any dysuria but states that approximately 3 weeks ago he had some small amount of blood in his urine. He states that he may have passed a kidney stone. He denies any current pain or blood in his urine. He denies any abdominal pain. Per EMS: Patient was 88% on room air on arrival and was tachypneic. REVIEW OF SYSTEMS: Constitutional: Positive for weakness. Denies fever, chills. Eyes: Denies eye pain Ears, Nose, Mouth, & Throat: Denies earache Cardiovascular: Denies chest pain Respiratory: Positive for nonproductive cough. Denies shortness of breath Gastrointestinal: Denies Nausea, vomiting, diarrhea, hematochezia. Genitourinary: Denies hematuria Skin:Denies a rash MSK: Denies joint pain Neurological: Denies blurred vision Psychiatric: Denies depression PAST MEDICAL HISTORY: As per history of present illness and as reviewed below otherwise noncontributory. SURGICAL HISTORY: As per history of present illness and as reviewed below otherwise noncontributory. SOCIAL HISTORY: As per history of present illness and as reviewed below otherwise noncontributory. FAMILY HISTORY: As per history of present illness and as reviewed below otherwise noncontributory. EXAMINATION OF ORGAN SYSTEMS/BODY AREAS: Constitutional: Blood pressure is 129/79, heart rate 122, respiratory rate 20 with an oxygen saturation of 90% on room air. Temperature 39.0. General: Morbidly obese man who is in no acute distress Psychiatric: Appropriate mood and affect. Eyes: No scleral icterus or conjunctival erythema ENMT: Moist mucous membranes. No pharyngeal erythema Cardiovascular: Regular, rate, and rhythm. No gallops, murmurs, or rubs. Bilateral upper extremity pulses symmetric and intact. No peripheral edema. No JVD. Respiratory: Lungs clear to auscultation bilaterally. No wheezes, rales, or rhonchi. Gastrointestinal: Soft, non-tender, non-distended. Normoactive bowel sounds Genitourinary: No suprapubic tenderness Musculoskeletal: Normal range of motion. Skin: No lesions or abrasions. Neurological: Alert, GCS 15 MEDICAL DECISION MAKING AND COURSE IN THE ED WITH INTERPRETATION/REVIEW OF DIAGNOSTIC STUDIES: This is a 71-year-old man with a past medical history of morbid obesity, diabetes mellitus and hyperlipidemia who comes to the emergency department with 1 week of nonproductive cough with 2 days of weakness to where he has been unable to stand up who is profoundly hypoxic at 88% on EMS arrival who is currently hypoxic on room air, tachycardic and febrile. The patient is not currently vaccinated against COVID-19 therefore COVID-19 is on the differ tial. Will obtain a COVID-19 swab. Given the patient is currently meeting septic criteria we will obtain CBC, CMP, lactic acid, urinalysis, and chest x- ray. We also obtain influenza swabs. Cardiac monitoring at this time did reveal sinus tachycardia and pulse oximetry with good waveform was 93% on 3 L nasal cannula. EKG was obtained which not reveal any acute signs of ischemia. Given the tachycardia we will provide the patient with 1 L of lactated Ringer's bolus and will reassess after lactic acid as the patient's blood pressure is normal. We will hold off on antibiotics at this time until COVID-19 swab returns. DDx: COVID-19, community-acquired pneumonia, ACS Laboratory: CBC reveals macrocytosis with an MCV of 100.9 and a platelet count of 130. CMP reveals hyponatremia at 132, hyperglycemia at 307, elevated AST at 45 otherwise unremarkable. Lactic acid is 3.4. Troponin is negative. CPK is normal. TSH is normal. COVID-19 is positive. Influenza is negative. Serum alcohol is negative. The radiological images were viewed by myself along with reading the report from the radiologist. Chest x-ray reveals bilateral patchy infiltrates consistent with COVID-19 pneumonia After labs at this time we will will not provide any further fluid boluses and will start the patient on lactated Ringer's at 150 cc/h for maintenance fluid. We will provide the patient with 6 mg of Decadron and start the patient on remdesivir. I did discuss admission with the patient at this time. He was amenable to this plan. At this time although the patient does meet septic criteria I do believe this is secondary to a viral cause given his COVID-19 pneumonia. I do believe his lactic acidosis is likely secondary to his degree of hypoxia given that there is no metabolic acidosis otherwise. I contacted Dr. Yeung who accepted the patient for admission. While awaiting for a bed the patient's urinalysis did come back positive for nitrites with 30-40 WBCs and 3+ bacteria. Given the patient is febrile and has a positive urinalysis we will start the patient on ceftriaxone. The patient has already obtained blood cultures and has already has received to the appropriate fluid boluses. DISPOSITION: Patient was admitted to the hospital in stable yet serious condition CONDITION: Serious PROCEDURES: Cardiac monitoring interpretation, pulse oximetry interpretation FINAL IMPRESSION(S)/DIAGNOSES: 1. Acute hypoxic respiratory failure secondary to COVID-19 pneumonia 2. Acute lactic acidosis likely secondary #1 3. Acute urinary tract infection Ben Perez M.D. Critical Care Procedure Note Authorized and performed by: Ben Perez M.D. Critical Care Time: 67 minutes Due to a high probability of clinically significant, life threatening deterioration, the patient required my highest level of preparedness to intervene emergently and I personally spent this critical care time directly and personally managing the patient. This critical care time included obtaining a history, examining the patient, pulse oximetry; ordering and review of studies; arranging urgent treatment with development of a management plan; evaluation of a patients reponse to treatment; frequent assessment; and discussions with other providers. This critical care time was performed to assess and manage the high probability of imminent, life threatening deterioration that could result in multiorgan failure. It was exclusive of separate billable procedures and treating other patients. Please see MDM section and rest of the note for further information on patient assessment and treatment. Please see MDM section and rest of the note for further information on patient assessment and treatment. - Related Data Allergies Allergy/AdvReac Type Severity Reaction Status Date / Time No Known Allergies Allergy Verified 08/14/18 12:54 Home Meds: Home Meds atorvaSTATin Calcium [Atorvastatin Calcium] 20 mg PO BEDTIME 08/10/17 [History] Meloxicam 15 mg PO DAILY 08/14/18 [History] metFORMIN [Glucophage] 1,000 mg PO BIDMEALS 08/14/18 [History] Sulfamethoxazole/Trimethoprim [Bactrim Ds Tablet] 1 each PO BID #14 tablet 08/24/18 [Rx] cephALEXin [Keflex] 500 mg PO QID #28 capsule 08/24/18 [Rx] oxyCODONE 5 mg PO Q6H PRN #10 tablet 08/24/18 [Rx] Past Medical History HEENT History: Reports: None Other HEENT History: wears glasses Cardiovascular History: Reports: High Cholesterol Respiratory History: Reports: None Gastrointestinal History: Reports: Diverticulosis Genitourinary History: Reports: None Musculoskeletal History: Reports: None 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 DM - borderline Hematologic History: Reports: None Immunologic History: Reports: Immunosuppression Oncologic (Cancer) History: Reports: None Dermatologic History: Reports: None - Infectious Disease History Infectious Disease History: Reports: None - Past Surgical History Head Surgeries/Procedures: Reports: None HEENT Surgical History: Reports: Detached Retina Cardiovascular Surgical History: Reports: None GI Surgical History: Reports: Colonoscopy Musculoskeletal Surgical History: Reports: None Other Musculoskeletal Surgeries/Procedures:: right finger surgery Social & Family History - Family History Family Medical History: No Pertinent Family History Cardiac: Reports: Angina GI: Reports: Hiatal Hernia Neurological: Reports: MS Endocrine/Metabolic: Reports: Other (See Below) Other Endocrine/Metabolic Family History: DM type unknown Oncologic: Reports: Other (See Below) Other Oncologic Family History: Kidney - Tobacco Use Tobacco Use Status *Q: Never Tobacco User - Caffeine Use Caffeine Use: Reports: Soda Caffeine Use Comment: 2 bottles a day - Living Situation & Occupation Living situation: Reports: Single 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 DIRECTED Care 08/07/21 13:54 Active Pulse Oximetry [RC] ASDIRECTED Care 08/07/21 13:54 Active CULTURE BLOOD [BC] Stat Lab 08/07/21 14:00 Received CULTURE BLOOD [BC] Stat Lab 08/07/21 14:00 Results ESR [SEDIMENTATION RATE AUTO] [HEME] Stat Lab 08/07/21 15:12 Received REFLEX LACTIC ACID YES OR NO [CHEM] Routine Lab 08/07/21 14:45 Received Lactated Ringers [Ringers, Lactated] 1,000 ml Med 08/07/21 14:45 Active IV ASDIRECTED Lactated Ringers [Ringers, Lactated] 1,000 ml Med 08/07/21 15:00 Active IV ASDIRECTED cefTRIAXone [Rocephin in Dextrose,Iso-Osm 2 GM/50 ML] 2 Med 08/07/21 15:50 Ordered gm Premix Bag 1 bag IV ONETIME Blood Culture x2 Reflex Set [OM.PC] Stat Oth 08/07/21 14:38 Ordered Medication Orders Lactated Ringer's (Ringers, Lactated) 1,000 mls @ 999 mls/hr IV ASDIRECTED [facility] Last Admin: 08/07/21 15:04 Dose: 999 mls/hr Documented by: [id number] Lactated Ringer's (Ringers, Lactated) 1,000 mls @ 150 mls/hr IV ASDIRECTED VÍCTOR Last Admin: 08/07/21 15:03 Dose: 150 mls/hr Documented by: [id number] Ceftriaxone Sodium/Dextrose 2 (gm/ Premix) 50 mls @ 100 mls/hr IV ONETIME ONE Stop: 08/07/21 16:19 Labs: Laboratory Tests 08/07/21 08/07/21 08/07/21 Range/Units 14:00 14:00 14:00 WBC 7.49 (4.0-11.0) K/uL RBC 4.53 (4.50-5.90) M/uL Hgb 15.7 (13.0-17.0) g/dL Hct 45.7 (38.0-50.0) % MCV 100.9 H (80.0-98.0) fL MCH 34.7 H (27.0-32.0) pg MCHC 34.4 (31.0-37.0) g/dL RDW Std Deviation 52.7 (28.0-62.0) fl RDW Coeff of Yasmani 14 (11.0-15.0) % Plt Count 130 L (150-400) K/uL MPV 10.50 (7.40-12.00) fL Neut % (Auto) 80.0 (48.0-80.0) % Lymph % (Auto) 14.2 L (16.0-40.0) % Hall % (Auto) 5.6 (0.0-15.0) % Eos % (Auto) 0.1 (0.0-7.0) % Baso % (Auto) 0.1 (0.0-1.5) % Neut # (Auto) 6.0 H (1.4-5.7) K/uL Lymph # (Auto) 1.1 (0.6-2.4) K/uL Hall # (Auto) 0.4 (0.0-0.8) K/uL Eos # (Auto) 0.0 (0.0-0.7) K/uL Baso # (Auto) 0.0 (0.0-0.1) K/uL Nucleated RBC % 0.0 /100WBC Nucleated RBCs # 0 K/uL Sodium 132 L (136-148) mmol/L Potassium 4.9 (3.5-5.1) mmol/L Chloride 98 (98-107) mmol/L Carbon Dioxide 24.4 (21.0-32.0) mmol/L BUN 14 (7.0-18.0) mg/dL Creatinine 1.1 (0.8-1.3) mg/dL Est Cr Clr Drug Dosing TNP Estimated GFR (MDRD) > 60.0 ml/min Glucose 307 H (74-106) mg/dL Lactic Acid (0.4-2.0) mmol/L Calcium 7.2 L (8.5-10.1) mg/dL Magnesium 1.9 (1.8-2.4) mg/dL Total Bilirubin 0.7 (0.2-1.0) mg/dL AST 45 H (15-37) IU/L ALT 21 (14-63) IU/L Alkaline Phosphatase 47 (46-116) U/L Creatine Kinase (26-308) U/L Troponin I < 0.050 (0.000-0.056) ng/mL C-Reactive Protein (0.00-0.90) mg/dL B-Natriuretic Peptide 21 (<100) PG/ML Total Protein 7.6 (6.4-8.2) g/dL Albumin 2.8 L (3.4-5.0) g/dL Globulin 4.8 H (2.6-4.0) g/dL Albumin/Globulin Ratio 0.6 L (0.9-1.6) TSH, Ultra Sensitive 1.24 (0.36-3.74) uIU/mL Urine Color Urine Appearance Urine pH (5.0-8.0) Ur Specific Snow (1.001-1.035) Urine Protein (NEGATIVE) mg/dL Urine Glucose (UA) (NEGATIVE) mg/dL Urine Ketones (NEGATIVE) mg/dL Urine Occult Blood (NEGATIVE) Urine Nitrite (NEGATIVE) Urine Bilirubin (NEGATIVE) Urine Urobilinogen (<2.0) EU/dL Ur Leukocyte Esterase (NEGATIVE) Urine RBC (0-2/HPF) Urine WBC (0-5/HPF) Ur Epithelial Cells (NONE-FEW) Urine Bacteria (NEGATIVE) Fine Granular Casts (NEGATIVE) Ethyl Alcohol < 3.0 mg/dL Influenza Type A RNA (NEGATIVE) Influenza Type B RNA (NEGATIVE) SARS-CoV-2 RNA (VALERIA) (NEGATIVE) 08/07/21 08/07/21 08/07/21 Range/Units 14:00 14:00 14:00 WBC (4.0-11.0) K/uL RBC (4.50-5.90) M/uL Hgb (13.0-17.0) g/dL Hct (38.0-50.0) % MCV (80.0-98.0) fL MCH (27.0-32.0) pg MCHC (31.0-37.0) g/dL RDW Std Deviation (28.0-62.0) fl RDW Coeff of Yasmani (11.0-15.0) % Plt Count (150-400) K/uL MPV (7.40-12.00) fL Neut % (Auto) (48.0-80.0) % Lymph % (Auto) (16.0-40.0) % Hall % (Auto) (0.0-15.0) % Eos % (Auto) (0.0-7.0) % Baso % (Auto) (0.0-1.5) % Neut # (Auto) (1.4-5.7) K/uL Lymph # (Auto) (0.6-2.4) K/uL Hall # (Auto) (0.0-0.8) K/uL Eos # (Auto) (0.0-0.7) K/uL Baso # (Auto) (0.0-0.1) K/uL Nucleated RBC % /100WBC Nucleated RBCs # K/uL Sodium (136-148) mmol/L Potassium (3.5-5.1) mmol/L Chloride (98-107) mmol/L Carbon Dioxide (21.0-32.0) mmol/L BUN (7.0-18.0) mg/dL Creatinine (0.8-1.3) mg/dL Est Cr Clr Drug Dosing Estimated GFR (MDRD) ml/min Glucose (74-106) mg/dL Lactic Acid 3.4 H* (0.4-2.0) mmol/L Calcium (8.5-10.1) mg/dL Magnesium (1.8-2.4) mg/dL Total Bilirubin (0.2-1.0) mg/dL AST (15-37) IU/L ALT (14-63) IU/L Alkaline Phosphatase (46-116) U/L Creatine Kinase 296 (26-308) U/L Troponin I (0.000-0.056) ng/mL C-Reactive Protein (0.00-0.90) mg/dL B-Natriuretic Peptide (<100) PG/ML Total Protein (6.4-8.2) g/dL Albumin (3.4-5.0) g/dL Globulin (2.6-4.0) g/dL Albumin/Globulin Ratio (0.9-1.6) TSH, Ultra Sensitive (0.36-3.74) uIU/mL Urine Color Urine Appearance Urine pH (5.0-8.0) Ur Specific Snow (1.001-1.035) Urine Protein (NEGATIVE) mg/dL Urine Glucose (UA) (NEGATIVE) mg/dL Urine Ketones (NEGATIVE) mg/dL Urine Occult Blood (NEGATIVE) Urine Nitrite (NEGATIVE) Urine Bilirubin (NEGATIVE) Urine Urobilinogen (<2.0) EU/dL Ur Leukocyte Esterase (NEGATIVE) Urine RBC (0-2/HPF) Urine WBC (0-5/HPF) Ur Epithelial Cells (NONE-FEW) Urine Bacteria (NEGATIVE) Fine Granular Casts (NEGATIVE) Ethyl Alcohol mg/dL Influenza Type A RNA NEGATIVE (NEGATIVE) Influenza Type B RNA NEGATIVE (NEGATIVE) SARS-CoV-2 RNA (VALERIA) POSITIVE H (NEGATIVE) 08/07/21 08/07/21 Range/Units 14:00 15:10 WBC (4.0-11.0) K/uL RBC (4.50-5.90) M/uL Hgb (13.0-17.0) g/dL Hct (38.0-50.0) % MCV (80.0-98.0) fL MCH (27.0-32.0) pg MCHC (31.0-37.0) g/dL RDW Std Deviation (28.0-62.0) fl RDW Coeff of Yasmani (11.0-15.0) % Plt Count (150-400) K/uL MPV (7.40-12.00) fL Neut % (Auto) (48.0-80.0) % Lymph % (Auto) (16.0-40.0) % Hall % (Auto) (0.0-15.0) % Eos % (Auto) (0.0-7.0) % Baso % (Auto) (0.0-1.5) % Neut # (Auto) (1.4-5.7) K/uL Lymph # (Auto) (0.6-2.4) K/uL Hall # (Auto) (0.0-0.8) K/uL Eos # (Auto) (0.0-0.7) K/uL Baso # (Auto) (0.0-0.1) K/uL Nucleated RBC % /100WBC Nucleated RBCs # K/uL Sodium (136-148) mmol/L Potassium (3.5-5.1) mmol/L Chloride (98-107) mmol/L Carbon Dioxide (21.0-32.0) mmol/L BUN (7.0-18.0) mg/dL Creatinine (0.8-1.3) mg/dL Est Cr Clr Drug Dosing Estimated GFR (MDRD) ml/min Glucose (74-106) mg/dL Lactic Acid (0.4-2.0) mmol/L Calcium (8.5-10.1) mg/dL Magnesium (1.8-2.4) mg/dL Total Bilirubin (0.2-1.0) mg/dL AST (15-37) IU/L ALT (14-63) IU/L Alkaline Phosphatase (46-116) U/L Creatine Kinase (26-308) U/L Troponin I (0.000-0.056) ng/mL C-Reactive Protein 6.40 H (0.00-0.90) mg/dL B-Natriuretic Peptide (<100) PG/ML Total Protein (6.4-8.2) g/dL Albumin (3.4-5.0) g/dL Globulin (2.6-4.0) g/dL Albumin/Globulin Ratio (0.9-1.6) TSH, Ultra Sensitive (0.36-3.74) uIU/mL Urine Color YELLOW Urine Appearance CLOUDY Urine pH 5.5 (5.0-8.0) Ur Specific Snow 1.020 (1.001-1.035) Urine Protein 100 H (NEGATIVE) mg/dL Urine Glucose (UA) >=1000 (NEGATIVE) mg/dL Urine Ketones NEGATIVE (NEGATIVE) mg/dL Urine Occult Blood MODERATE H (NEGATIVE) Urine Nitrite POSITIVE H (NEGATIVE) Urine Bilirubin NEGATIVE (NEGATIVE) Urine Urobilinogen 1.0 (<2.0) EU/dL Ur Leukocyte Esterase NEGATIVE (NEGATIVE) Urine RBC 0-3 (0-2/HPF) Urine WBC 30-40 (0-5/HPF) Ur Epithelial Cells FEW (NONE-FEW) Urine Bacteria 3+ H (NEGATIVE) Fine Granular Casts 0-1 (NEGATIVE) Ethyl Alcohol mg/dL Influenza Type A RNA (NEGATIVE) Influenza Type B RNA (NEGATIVE) SARS-CoV-2 RNA (VALERIA) (NEGATIVE) Meds: Medications Generic Name Dose Route Start Last Admin Trade Name Freq PRN Reason Stop Dose Admin Lactated Ringer's 1,000 mls @ 999 mls/hr 08/07/21 14:45 08/07/21 15:04 Ringers, Lactated IV 999 mls/hr ASDIRECTED VÍTCOR Administration Lactated Ringer's 1,000 mls @ 150 mls/hr 08/07/21 15:00 08/07/21 15:03 Ringers, Lactated IV 150 mls/hr ASDIRECTED VÍCTOR Administration Ceftriaxone Sodium/Dextrose 2 50 mls @ 100 mls/hr 08/07/21 15:50 gm/ Premix IV 08/07/21 16:19 ONETIME ONE Discontinued Medications Generic Name Dose Route Start Last Admin Trade Name Freq PRN Reason Stop Dose Admin Acetaminophen 1,000 mg 08/07/21 14:38 08/07/21 15:03 Acetaminophen 500 Mg Tab PO 08/07/21 14:39 1,000 mg ONETIME ONE Administration Dexamethasone 6 mg 08/07/21 15:12 08/07/21 15:38 Dexamethasone 4 Mg Tab PO 08/07/21 15:13 6 mg ONETIME ONE Administration Remdesivir 200 mg/ Sodium 250 mls @ 250 mls/hr 08/07/21 15:03 Chloride IV 08/07/21 15:04 ONETIME ONE Departure - Departure Time of Disposition: 15:14 Disposition: Admitted As Inpatient 66 Condition: Serious Clinical Impression: COVID-19 - Discharge Information Referrals: PCP,None [Primary Care Provider] - Forms: ED Department Discharge Sepsis Event Note (ED) - Evaluation Sepsis Screening Result: No Definite Risk - Focused Exam Vital Signs: Vital Signs Temp Temp Pulse Resp BP Pulse Ox 08/07/21 15:03 39.0 C H 08/07/21 13:50 39.0 C H 122 H 20 129/79 90 L - My Orders Last 24 Hours: My Active Orders 08/07/21 13:54 Cardiac Monitoring [RC] . DIRECTED Pulse Oximetry [RC] ASDIRECTED 08/07/21 14:00 CULTURE BLOOD [BC] Stat CULTURE BLOOD [BC] Stat 08/07/21 14:38 Blood Culture x2 Reflex Set [OM.PC] Stat 08/07/21 14:45 REFLEX LACTIC ACID YES OR NO [CHEM] Routine Lactated Ringers [Ringers, Lactated] 1,000 ml IV ASDIRECTED 08/07/21 15:00 Lactated Ringers [Ringers, Lactated] 1,000 ml IV ASDIRECTED 08/07/21 15:12 ESR [SEDIMENTATION RATE AUTO] [HEME] Stat 08/07/21 15:13 Admission Status [Patient Status] [ADT] Stat 08/07/21 15:50 cefTRIAXone [Rocephin in Dextrose,Iso-Osm 2 GM/50 ML] 2 gm Premix Bag 1 bag IV ONETIME - Assessment/Plan Last 24 Hours: My Active Orders 08/07/21 13:54 Cardiac Monitoring [RC] . DIRECTED Pulse Oximetry [RC] ASDIRECTED 08/07/21 14:00 CULTURE BLOOD [BC] Stat CULTURE BLOOD [BC] Stat 08/07/21 14:38 Blood Culture x2 Reflex Set [OM.PC] Stat 08/07/21 14:45 REFLEX LACTIC ACID YES OR NO [CHEM] Routine Lactated Ringers [Ringers, Lactated] 1,000 ml IV ASDIRECTED 08/07/21 15:00 Lactated Ringers [Ringers, Lactated] 1,000 ml IV ASDIRECTED 08/07/21 15:12 ESR [SEDIMENTATION RATE AUTO] [HEME] Stat 08/07/21 15:13 Admission Status [Patient Status] [ADT] Stat 08/07/21 15:50 cefTRIAXone [Rocephin in Dextrose,Iso-Osm 2 GM/50 ML] 2 gm Premix Bag 1 bag IV ONETIME
[2021-08-07] MEDS ORDERED: cefTRIAXone 2 GM in Premix Bag 1 BAG IV ONE (15:50)
[2021-08-07] MEDS ORDERED: Ondansetron 4 MG/2 ML SDV IVPUSH PRN (17:02)
[2021-08-07] MEDS ORDERED: Albuterol/Ipratropium 3.0-0.5 MG/3 ML Neb Soln NEB PRN (17:02)
[2021-08-07] MEDS ORDERED: Pneumococcal 23-Valent Conjugate Vaccine 0.5 ML Syringe IM ONE (17:13)
[2021-08-07] MEDS ORDERED: Pantoprazole 40 MG Vial IV SCH (17:15)
[2021-08-07] MEDS ORDERED: Glucagon,Human Recombinant 1 MG Vial IM PRN (17:15)
[2021-08-07] MEDS ORDERED: 50% Dextrose in Water 50 ML Syringe IVPUSH PRN (17:15)
--- NOTE | 2021-08-07 17:16 | PCM.HP.2 ---
H&P History of Present Illness - General Date of Service: 08/08/21 Admit Problem/Dx: Admission Diagnosis/Problem Admission Diagnosis/Problem Hypoxia Source of Information: Patient - History of Present Illness Initial Comments - Free Text/Narative: This is a 71-year-old man with a past medical history of morbid obesity, diabetes mellitus and hyperlipidemia who comes to the emergency department with 1 week of nonproductive cough with 2 days of weakness to where he has been unable to stand up who is profoundly hypoxic at 88% on EMS arrival who is currently hypoxic on room air 88%, tachycardic and febrile. The patient is not currently vaccinated against COVID-19, patient was found to be meeting SIRS criteria and was worked up for sepsis. cardiac monitoring revealed sinus tachycardia and pulse oximetry with good waveform was 93% on 3 L nasal cannula. EKG was obtained which not reveal any acute signs of ischemia. Covid swab came back positive so did UA for UTI. Laboratory: CBC reveals macrocytosis with an MCV of 100.9 and a platelet count of 130. CMP reveals hyponatremia at 132, hyperglycemia at 307, elevated AST at 45 otherwise unremarkable. Lactic acid is 3.4. Troponin is negative. CPK is normal. TSH is normal. COVID-19 is positive. Influenza is negative. Serum alcohol is negative. Chest x-ray reveals bilateral patchy infiltrates consistent with COVID-19 pneumonia Given Covid positive status and possible ongoing sepsis patient did receive some IV fluids for fluid resuscitation. Patient was eventually admitted to the hospital for management of acute hypoxic respiratory failure secondary to COVID- 19 pneumonia. During my encounter patient was resting comfortably in the bed requiring 2 L of oxygen, he states that he never felt short of breath or chest pain or any other symptoms other than fatigue and weakness. He states that he got so weak that his son also was not able to get him up so he had to call EMS. - Related Data Allergies/Adverse Reactions: Allergies Allergy/AdvReac Type Severity Reaction Status Date / Time No Known Allergies Allergy Verified 08/07/21 17:06 Home Medications: Home Meds atorvaSTATin Calcium [Atorvastatin Calcium] 20 mg PO BEDTIME 08/10/17 [History] metFORMIN [Glucophage] 1,000 mg PO BIDMEALS 08/14/18 [History] oxyCODONE 5 mg PO Q6H PRN #10 tablet 08/24/18 [Rx] Past Medical History HEENT History: Reports: None Other HEENT History: wears glasses Cardiovascular History: Reports: High Cholesterol Respiratory History: Reports: None Gastrointestinal History: Reports: Diverticulosis Genitourinary History: Reports: None Musculoskeletal History: Reports: None 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 DM - borderline Hematologic History: Reports: None Immunologic History: Reports: Immunosuppression Oncologic (Cancer) History: Reports: None Dermatologic History: Reports: None - Infectious Disease History Infectious Disease History: Reports: None - Past Surgical History Head Surgeries/Procedures: Reports: None HEENT Surgical History: Reports: Detached Retina Cardiovascular Surgical History: Reports: None GI Surgical History: Reports: Colonoscopy Musculoskeletal Surgical History: Reports: None Other Musculoskeletal Surgeries/Procedures:: right finger surgery Social & Family History - Family History Family Medical History: No Pertinent Family History Cardiac: Reports: Angina GI: Reports: Hiatal Hernia Neurological: Reports: MS Endocrine/Metabolic: Reports: Other (See Below) Other Endocrine/Metabolic Family History: DM type unknown Oncologic: Reports: Other (See Below) Other Oncologic Family History: Kidney - Tobacco Use Tobacco Use Status *Q: Never Tobacco User - Caffeine Use Caffeine Use: Reports: Soda Caffeine Use Comment: 2 bottles a day - Living Situation & Occupation Living situation: Reports: Single 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 Denies: Fever Pulmonary: Denies: Shortness of Breath, Wheezing, Pleuritic Chest Pain Gastrointestinal: Denies: Abdominal Pain, Anorexia, Black Stool Genitourinary: Denies: Dysuria, Frequency, Burning Musculoskeletal: Denies: Neck Pain, Shoulder Pain, Arm Pain Skin: Denies: Cyanosis, Jaundice, Mottled, Pallor Psychiatric: Denies: Confusion, Depression, Mood Lability Exam - Exam Exam: See Below - Vital Signs Vital Signs: Last Vital Signs Temp 36.9 C 08/07/21 17:03 Pulse 78 08/07/21 17:03 Resp 21 H 08/07/21 17:03 BP 121/71 08/07/21 17:03 Pulse Ox 94 L 08/07/21 17:03 Weight: 158.757 kg - Exam Quality Assessment: Supplemental Oxygen General: Alert, Oriented, Mild Distress Lungs: Normal Respiratory Effort, Decreased Breath Sounds, Crackles Cardiovascular: Regular Rate, Regular Rhythm GI/Abdominal Exam: Normal Bowel Sounds, Soft, Non-Tender Back Exam: Normal Inspection, Full Range of Motion - Patient Data Lab Results Last 24 hrs: Laboratory Results - last 24 hr 08/07/21 08/07/21 08/07/21 Range/Units 14:00 14:00 14:00 WBC 7.49 (4.0-11.0) K/uL RBC 4.53 (4.50-5.90) M/uL Hgb 15.7 (13.0-17.0) g/dL Hct 45.7 (38.0-50.0) % MCV 100.9 H (80.0-98.0) fL MCH 34.7 H (27.0-32.0) pg MCHC 34.4 (31.0-37.0) g/dL RDW Std Deviation 52.7 (28.0-62.0) fl RDW Coeff of Yasmani 14 (11.0-15.0) % Plt Count 130 L (150-400) K/uL MPV 10.50 (7.40-12.00) fL Neut % (Auto) 80.0 (48.0-80.0) % Lymph % (Auto) 14.2 L (16.0-40.0) % [place] % (Auto) 5.6 (0.0-15.0) % Eos % (Auto) 0.1 (0.0-7.0) % Baso % (Auto) 0.1 (0.0-1.5) % Neut # (Auto) 6.0 H (1.4-5.7) K/uL Lymph # (Auto) 1.1 (0.6-2.4) K/uL [place] # (Auto) 0.4 (0.0-0.8) K/uL Eos # (Auto) 0.0 (0.0-0.7) K/uL Baso # (Auto) 0.0 (0.0-0.1) K/uL Nucleated RBC % 0.0 /100WBC Nucleated RBCs # 0 K/uL ESR (0-19) mm/hr Sodium 132 L (136-148) mmol/L Potassium 4.9 (3.5-5.1) mmol/L Chloride 98 (98-107) mmol/L Carbon Dioxide 24.4 (21.0-32.0) mmol/L BUN 14 (7.0-18.0) mg/dL Creatinine 1.1 (0.8-1.3) mg/dL Est Cr Clr Drug Dosing TNP Estimated GFR (MDRD) > 60.0 ml/min Glucose 307 H (74-106) mg/dL Lactic Acid (0.4-2.0) mmol/L Calcium 7.2 L (8.5-10.1) mg/dL Magnesium 1.9 (1.8-2.4) mg/dL Total Bilirubin 0.7 (0.2-1.0) mg/dL AST 45 H (15-37) IU/L ALT 21 (14-63) IU/L Alkaline Phosphatase 47 (46-116) U/L Creatine Kinase (26-308) U/L Troponin I < 0.050 (0.000-0.056) ng/mL C-Reactive Protein (0.00-0.90) mg/dL B-Natriuretic Peptide 21 (<100) PG/ML Total Protein 7.6 (6.4-8.2) g/dL Albumin 2.8 L (3.4-5.0) g/dL Globulin 4.8 H (2.6-4.0) g/dL Albumin/Globulin Ratio 0.6 L (0.9-1.6) TSH, Ultra Sensitive 1.24 (0.36-3.74) uIU/mL Urine Color Urine Appearance Urine pH (5.0-8.0) Ur Specific [place] (1.001-1.035) Urine Protein (NEGATIVE) mg/dL Urine Glucose (UA) (NEGATIVE) mg/dL Urine Ketones (NEGATIVE) mg/dL Urine Occult Blood (NEGATIVE) Urine Nitrite (NEGATIVE) Urine Bilirubin (NEGATIVE) Urine Urobilinogen (<2.0) EU/dL Ur Leukocyte Esterase (NEGATIVE) Urine RBC (0-2/HPF) Urine WBC (0-5/HPF) Ur Epithelial Cells (NONE-FEW) Urine Bacteria (NEGATIVE) Fine Granular Casts (NEGATIVE) Ethyl Alcohol < 3.0 mg/dL Influenza Type A RNA (NEGATIVE) Influenza Type B RNA (NEGATIVE) SARS-CoV-2 RNA ([place]) (NEGATIVE) 08/07/21 08/07/21 08/07/21 Range/Units 14:00 14:00 14:00 WBC (4.0-11.0) K/uL RBC (4.50-5.90) M/uL Hgb (13.0-17.0) g/dL Hct (38.0-50.0) % MCV (80.0-98.0) fL MCH (27.0-32.0) pg MCHC (31.0-37.0) g/dL RDW Std Deviation (28.0-62.0) fl RDW Coeff of Yasmani (11.0-15.0) % Plt Count (150-400) K/uL MPV (7.40-12.00) fL Neut % (Auto) (48.0-80.0) % Lymph % (Auto) (16.0-40.0) % [place] % (Auto) (0.0-15.0) % Eos % (Auto) (0.0-7.0) % Baso % (Auto) (0.0-1.5) % Neut # (Auto) (1.4-5.7) K/uL Lymph # (Auto) (0.6-2.4) K/uL [place] # (Auto) (0.0-0.8) K/uL Eos # (Auto) (0.0-0.7) K/uL Baso # (Auto) (0.0-0.1) K/uL Nucleated RBC % /100WBC Nucleated RBCs # K/uL ESR (0-19) mm/hr Sodium (136-148) mmol/L Potassium (3.5-5.1) mmol/L Chloride (98-107) mmol/L Carbon Dioxide (21.0-32.0) mmol/L BUN (7.0-18.0) mg/dL Creatinine (0.8-1.3) mg/dL Est Cr Clr Drug Dosing Estimated GFR (MDRD) ml/min Glucose (74-106) mg/dL Lactic Acid 3.4 H* (0.4-2.0) mmol/L Calcium (8.5-10.1) mg/dL Magnesium (1.8-2.4) mg/dL Total Bilirubin (0.2-1.0) mg/dL AST (15-37) IU/L ALT (14-63) IU/L Alkaline Phosphatase (46-116) U/L Creatine Kinase 296 (26-308) U/L Troponin I (0.000-0.056) ng/mL C-Reactive Protein (0.00-0.90) mg/dL B-Natriuretic Peptide (<100) PG/ML Total Protein (6.4-8.2) g/dL Albumin (3.4-5.0) g/dL Globulin (2.6-4.0) g/dL Albumin/Globulin Ratio (0.9-1.6) TSH, Ultra Sensitive (0.36-3.74) uIU/mL Urine Color Urine Appearance Urine pH (5.0-8.0) Ur Specific [place] (1.001-1.035) Urine Protein (NEGATIVE) mg/dL Urine Glucose (UA) (NEGATIVE) mg/dL Urine Ketones (NEGATIVE) mg/dL Urine Occult Blood (NEGATIVE) Urine Nitrite (NEGATIVE) Urine Bilirubin (NEGATIVE) Urine Urobilinogen (<2.0) EU/dL Ur Leukocyte Esterase (NEGATIVE) Urine RBC (0-2/HPF) Urine WBC (0-5/HPF) Ur Epithelial Cells (NONE-FEW) Urine Bacteria (NEGATIVE) Fine Granular Casts (NEGATIVE) Ethyl Alcohol mg/dL Influenza Type A RNA NEGATIVE (NEGATIVE) Influenza Type B RNA NEGATIVE (NEGATIVE) SARS-CoV-2 RNA ([place]) POSITIVE H (NEGATIVE) 08/07/21 08/07/21 08/07/21 Range/Units 14:00 15:10 15:12 WBC (4.0-11.0) K/uL RBC (4.50-5.90) M/uL Hgb (13.0-17.0) g/dL Hct (38.0-50.0) % MCV (80.0-98.0) fL MCH (27.0-32.0) pg MCHC (31.0-37.0) g/dL RDW Std Deviation (28.0-62.0) fl RDW Coeff of Yasmani (11.0-15.0) % Plt Count (150-400) K/uL MPV (7.40-12.00) fL Neut % (Auto) (48.0-80.0) % Lymph % (Auto) (16.0-40.0) % [place] % (Auto) (0.0-15.0) % Eos % (Auto) (0.0-7.0) % Baso % (Auto) (0.0-1.5) % Neut # (Auto) (1.4-5.7) K/uL Lymph # (Auto) (0.6-2.4) K/uL [place] # (Auto) (0.0-0.8) K/uL Eos # (Auto) (0.0-0.7) K/uL Baso # (Auto) (0.0-0.1) K/uL Nucleated RBC % /100WBC Nucleated RBCs # K/uL ESR 32 H (0-19) mm/hr Sodium (136-148) mmol/L Potassium (3.5-5.1) mmol/L Chloride (98-107) mmol/L Carbon Dioxide (21.0-32.0) mmol/L BUN (7.0-18.0) mg/dL Creatinine (0.8-1.3) mg/dL Est Cr Clr Drug Dosing Estimated GFR (MDRD) ml/min Glucose (74-106) mg/dL Lactic Acid (0.4-2.0) mmol/L Calcium (8.5-10.1) mg/dL Magnesium (1.8-2.4) mg/dL Total Bilirubin (0.2-1.0) mg/dL AST (15-37) IU/L ALT (14-63) IU/L Alkaline Phosphatase (46-116) U/L Creatine Kinase (26-308) U/L Troponin I (0.000-0.056) ng/mL C-Reactive Protein 6.40 H (0.00-0.90) mg/dL B-Natriuretic Peptide (<100) PG/ML Total Protein (6.4-8.2) g/dL Albumin (3.4-5.0) g/dL Globulin (2.6-4.0) g/dL Albumin/Globulin Ratio (0.9-1.6) TSH, Ultra Sensitive (0.36-3.74) uIU/mL Urine Color YELLOW Urine Appearance CLOUDY Urine pH 5.5 (5.0-8.0) Ur Specific [place] 1.020 (1.001-1.035) Urine Protein 100 H (NEGATIVE) mg/dL Urine Glucose (UA) >=1000 (NEGATIVE) mg/dL Urine Ketones NEGATIVE (NEGATIVE) mg/dL Urine Occult Blood MODERATE H (NEGATIVE) Urine Nitrite POSITIVE H (NEGATIVE) Urine Bilirubin NEGATIVE (NEGATIVE) Urine Urobilinogen 1.0 (<2.0) EU/dL Ur Leukocyte Esterase NEGATIVE (NEGATIVE) Urine RBC 0-3 (0-2/HPF) Urine WBC 30-40 (0-5/HPF) Ur Epithelial Cells FEW (NONE-FEW) Urine Bacteria 3+ H (NEGATIVE) Fine Granular Casts 0-1 (NEGATIVE) Ethyl Alcohol mg/dL Influenza Type A RNA (NEGATIVE) Influenza Type B RNA (NEGATIVE) SARS-CoV-2 RNA ([place]) (NEGATIVE) Result Diagrams: 08/08/21 05:29 08/08/21 05:29 Sam Results Last 24 hrs: Microbiology 08/07/21 14:00 Anaerobic Blood Culture - Final Blood - Venous Sepsis Event Note - Evaluation Sepsis Screening Result: No Definite Risk - Focused Exam Vital Signs: Vital Signs Temp Temp Pulse Resp BP Pulse Ox 08/07/21 17:03 36.9 C 78 21 H 121/71 94 L 08/07/21 16:31 37.0 C 82 22 H 125/76 96 08/07/21 15:03 39.0 C H 08/07/21 13:50 39.0 C H 122 H 20 129/79 90 L - Problem List (1) Acute respiratory failure with hypoxia SNOMED Code(s): 51271537, 971034590 ICD Code: J96.01 - ACUTE RESPIRATORY FAILURE WITH HYPOXIA Status: Acute Current Visit: Yes (2) COVID-19 SNOMED Code(s): 034540323 ICD Code: U07.1 - COVID-19 Status: Acute Current Visit: Yes (3) Diabetes mellitus SNOMED Code(s): 68564684 ICD Code: E11.9 - TYPE 2 DIABETES MELLITUS WITHOUT COMPLICATIONS Status: Acute Current Visit: No (4) UTI (urinary tract infection) SNOMED Code(s): 06535606 ICD Code: N39.0 - URINARY TRACT INFECTION, SITE NOT SPECIFIED Status: Acute Current Visit: No (5) DM2 (diabetes mellitus, type 2) SNOMED Code(s): 39198961 ICD Code: E11.9 - TYPE 2 DIABETES MELLITUS WITHOUT COMPLICATIONS Status: Chronic Priority: High Current Visit: No Qualifiers: Diabetes mellitus longterm insulin use: without longterm use Diabetes mellitus complication status: without complication Qualified Code(s): E11.9 - Type 2 diabetes mellitus without complications (6) Diverticulosis SNOMED Code(s): 00064449 ICD Code: K57.90 - DVRTCLOS OF INTEST, PART UNSP, W/O PERF OR ABSCESS W/O B LEED Status: Chronic Priority: Medium Current Visit: No Qualifiers: Diverticulosis site: diverticulosis of large intestine Diverticulosis bleeding: diverticulosis without bleeding Qualified Code(s): K57.30 - Diverticulosis of large intestine without perforation or abscess without bleeding (7) Hyperlipidemia SNOMED Code(s): 64612682 ICD Code: E78.5 - HYPERLIPIDEMIA, UNSPECIFIED Status: Chronic Current Visit: No (8) Obesity SNOMED Code(s): 951025669, 030426067 ICD Code: E66.9 - OBESITY, UNSPECIFIED Status: Chronic Current Visit: No Qualifiers: Obesity classification: adult class 3 (BMI >= 40) Body mass index: BMI 40.0-44.9 (9) Sepsis SNOMED Code(s): 28463229 ICD Code: A41.9 - SEPSIS, UNSPECIFIED ORGANISM Status: Resolved Current Visit: No Qualifiers: Sepsis type: sepsis due to unspecified organism Qualified Code(s): A41.9 - Sepsis, unspecified organism Problem List Initiated/Reviewed/Updated: Yes Orders Last 24hrs: Active Orders 24 hr Category Date Time Status Admission Status [Patient Status] [ADT] Stat ADT 08/07/21 15:13 Active Ambulate [RC] ASDIRECTED Care 08/07/21 17:02 Active Antiembolic Devices [RC] PER UNIT ROUTINE Care 08/07/21 17:04 Active Blood Glucose Check, Bedside [RC] TIDMEALS Care 08/07/21 17:02 Active Cardiac Monitoring [RC] . DIRECTED Care 08/07/21 13:54 Active Incentive Spirometry [RT Incentive Spirometry] [RC] Care 08/07/21 17:11 Active Q2HWA Oxygen Therapy [RC] PRN Care 08/07/21 17:03 Active Pulse Oximetry [RC] ASDIRECTED Care 08/07/21 13:54 Active RT Aerosol Therapy [RC] ASDIRECTED Care 08/07/21 17:05 Active RT Post Treatment Assessment [RC] Click to Edit Care 08/07/21 17:10 Active RT Pre-Treatment Assessment [RC] Click to Edit Care 08/07/21 17:10 Active VTE/DVT Education [RC] PER UNIT ROUTINE Care 08/07/21 17:03 Active Vaccine to be Administered/Admin Charge [RC] ASDIRECTED Care 08/07/21 17:14 Active Vital Signs [RC] Q4H Care 08/07/21 17:03 Active [place] [employer] Diet [DIET] Diet 08/07/21 Dinner Active CULTURE BLOOD [BC] Stat Lab 08/07/21 14:00 Received CULTURE BLOOD [BC] Stat Lab 08/07/21 14:00 Results CULTURE URINE [MREF] Routine Lab 08/07/21 17:06 Ordered REFLEX LACTIC ACID YES OR NO [CHEM] Routine Lab 08/07/21 14:45 Received Acetaminophen [TylenoL] Med 08/07/21 17:02 Ordered 650 mg PO Q4H PRN Albuterol/Ipratropium [Combivent Respimat] Med 08/07/21 17:15 Ordered See Dose Instructions INH Q4H Albuterol/Ipratropium [DuoNeb 3.0-0.5 MG/3 ML] Med 08/07/21 17:02 Ordered 3 ml NEB Q4HRRT PRN Dextromethorphan/guaiFENesin [Robitussin DM] Med 08/07/21 17:10 Ordered 10 ml PO Q4H PRN Dextrose 50% in Water Med 08/07/21 17:15 Ordered 50 ml IVPUSH ASDIRECTED PRN Enoxaparin [Lovenox] Med 08/07/21 17:15 Ordered 40 mg SUBCUT Q24H Glucagon,Human Recombinant [GlucaGen] Med 08/07/21 17:15 Ordered 1 mg IM ASDIRECTED PRN Insulin Aspart [NovoLOG] Med 08/08/21 07:30 Ordered See Protocol SUBCUT TIDAC Ondansetron [Zofran] Med 08/07/21 17:02 Ordered 4 mg IVPUSH Q4H PRN Pantoprazole [ProTONIX IV] Med 08/07/21 17:15 Ordered 40 mg IV Q24H Pharmacy to Dose - InFluenza V [Pharmacy to Dose - Med 08/07/21 17:13 Once InFluenza Vaccine] 1 each IM ONETIME ONE Pneumococcal 23-Valent Conjug [Pneumovax 23] Med 08/07/21 17:13 Once 25 mcg IM .ONCE ONE Remdesivir 100 mg Med 08/08/21 17:15 Ordered Sodium Chloride 0.9% [Normal Saline AdvBag] 100 ml IV Q24H cefTRIAXone [Rocephin in Dextrose,Iso-Osm 1 GM/50 ML] 1 Med 08/08/21 09:00 Ordered gm Premix Bag 1 bag IV Q24H dexAMETHasone Med 08/08/21 09:00 Ordered 6 mg PO DAILY Blood Culture x2 Reflex Set [OM.PC] Stat Oth 08/07/21 14:38 Ordered Sequential Compression Device [OM.PC] Per Unit Routine Oth 08/07/21 17:03 Ordered Medication Orders Acetaminophen (Acetaminophen 325 Mg Tab) 650 mg PO Q4H PRN PRN Reason: Pain (Mild 1-3)/fever Albuterol/Ipratropium (Albuterol/Ipratropium 3.0-0.5 Mg/3 Ml Neb Soln) 3 ml NEB Q4HRRT PRN PRN Reason: Shortness Of Breath/wheezing Albuterol/Ipratropium (Albuterol/Ipratropium 4 Gm Inhalation [place]) 0 gm INH Q4H [facility] Dexamethasone (Dexamethasone 4 Mg Tab) 6 mg PO DAILY [facility] Enoxaparin Sodium (Enoxaparin 40 Mg/0.4 Ml Syringe) 40 mg SUBCUT Q24H [facility] Guaifenesin/Dextromethorphan (Guaifenesin/Dextromethorphan 100-10 Mg/5 Ml Soln 10 Ml Cup) 10 ml PO Q4H PRN PRN Reason: Cough Remdesivir 100 mg/ Sodium (Chloride) 100 mls @ 100 mls/hr IV Q24H [facility] Stop: 08/11/21 18:14 Ceftriaxone Sodium/Dextrose 1 (gm/ Premix) 50 mls @ 100 mls/hr IV Q24H [facility] Influenza Virus Vaccine (Pharmacy To Dose - Influenza Vaccine) 1 each IM ONETIME ONE Stop: 08/07/21 17:14 Ondansetron HCl (Ondansetron 4 Mg/2 Ml Sdv) 4 mg IVPUSH Q4H PRN PRN Reason: Nausea/Vomiting Pantoprazole Sodium (Pantoprazole 40 Mg Vial) 40 mg IV Q24H [facility] Pneumococcal Polyvalent Vaccine (Pneumococcal 23-Valent Conjugate Vaccine 0.5 Ml Syringe) 25 mcg IM .ONCE ONE Stop: 08/07/21 17:14 Assessment/Plan Comment:: 71-year-old male admitted secondary to Covid hypoxia Continue oxygen support via nasal cannula Start IV remdesivir Start oral Decadron Start subcut Lovenox for DVT prophylaxis Start scheduled Combivent Start as needed duo nebs Start incentive spirometry Encourage proning IV Zofran for nausea and vomiting IV pantoprazole daily for GI prophylaxis Guaifenesin for cough Continue supportive care Monitor and replete electrolytes as needed Check CMP daily
[2021-08-07] MEDS: Pantoprazole 40 MG in Sodium Chloride 0.9% 10 ML IV SCH (18:09)
[2021-08-07] MEDS: Albuterol/Ipratropium 4 GM Inhalation Spray INH SCH ×2 (18:09→21:25)
[2021-08-07] MEDS: Enoxaparin 40 MG/0.4 ML Syringe SUBCUT SCH (18:10)
[2021-08-08] MEDS: Albuterol/Ipratropium 4 GM Inhalation Spray INH SCH ×7 (01:46→20:35)
[2021-08-08] MEDS: Acetaminophen 325 MG Tab PO PRN (05:28)
[2021-08-08 07:02] LABS: BLOOD UREA NITROGEN,BUN 14 mg/dL (7.0-18.0); CARBON DIOXIDE,CO2 27.6 mmol/L (21.0-32.0); CHLORIDE,CL 103 mmol/L (98-107); GLUCOSE RANDOM 225 mg/dL (74-106); POTASSIUM,K 4.1 mmol/L (3.5-5.1); SODIUM,NA 137 mmol/L (136-148)
[2021-08-08] MEDS: Dexamethasone 4 MG Tab PO SCH (08:32)
[2021-08-08] MEDS: cefTRIAXone 1 GM in Premix Bag 1 BAG IV SCH (08:33)
[2021-08-08] MEDS: Insulin Aspart 100 Units/ML 3 ML Pen SUBCUT SCH ×3 (08:44→17:25)
[2021-08-08] MEDS ORDERED: FLU Vacc QS2021(65UP)/MF59C/PF 60 MCG/0.5 ML Syringe IM ONE (09:00)
--- NOTE | 2021-08-08 11:22 | PCM.PN ---
- General Info Date of Service: 08/08/21 Admission Dx/Problem (Free Text): Admission Diagnosis/Problem Admission Diagnosis/Problem Hypoxia Subjective Update: Patient seen at bedside, no acute distress Functional Status: Reports: Tolerating Diet, Ambulating, Urinating - Review of Systems General: Reports: Weakness, Fatigue. Denies: Fever, Malaise, Chills Cardiovascular: Denies: Chest Pain, Palpitations Gastrointestinal: Denies: Abdominal Pain, Constipation, Decreased Appetite Genitourinary: Denies: Dysuria, Frequency, Burning Musculoskeletal: Denies: Neck Pain, Shoulder Pain, Arm Pain Skin: Denies: Cyanosis, Jaundice, Mottled - Patient Data Vitals - Most Recent: Last Vital Signs Temp 36.2 C 08/08/21 07:00 Pulse 73 08/08/21 07:00 Resp 16 08/08/21 07:00 BP 113/64 08/08/21 07:00 Pulse Ox 93 L 08/08/21 07:00 Weight - Most Recent: 153.995 kg I&O - Last 24 Hours: Intake & Output 08/07/21 08/08/21 08/08/21 22:59 06:59 14:59 Intake Total 700 Output Total 950 Balance -250 Lab Results Last 24 Hours: Laboratory Results - last 24 hr 08/07/21 08/07/21 08/07/21 Range/Units 14:00 14:00 14:00 WBC 7.49 (4.0-11.0) K/uL RBC 4.53 (4.50-5.90) M/uL Hgb 15.7 (13.0-17.0) g/dL Hct 45.7 (38.0-50.0) % MCV 100.9 H (80.0-98.0) fL MCH 34.7 H (27.0-32.0) pg MCHC 34.4 (31.0-37.0) g/dL RDW Std Deviation 52.7 (28.0-62.0) fl RDW Coeff of Yasmani 14 (11.0-15.0) % Plt Count 130 L (150-400) K/uL MPV 10.50 (7.40-12.00) fL Neut % (Auto) 80.0 (48.0-80.0) % Lymph % (Auto) 14.2 L (16.0-40.0) % [place] % (Auto) 5.6 (0.0-15.0) % Eos % (Auto) 0.1 (0.0-7.0) % Baso % (Auto) 0.1 (0.0-1.5) % Neut # (Auto) 6.0 H (1.4-5.7) K/uL Lymph # (Auto) 1.1 (0.6-2.4) K/uL [place] # (Auto) 0.4 (0.0-0.8) K/uL Eos # (Auto) 0.0 (0.0-0.7) K/uL Baso # (Auto) 0.0 (0.0-0.1) K/uL Add Manual Diff Neutrophils % (Manual) (48.0-80.0) % Band Neutrophils % % Lymphocytes % (Manual) (16.0-40.0) % Monocytes % (Manual) (0.0-15.0) % Eosinophils % (Manual) (0.0-7.0) % Nucleated RBC % 0.0 /100WBC Absolute Seg Neuts (1.4-5.7) Band Neutrophils # Lymphocytes # (Manual) (0.6-2.4) Monocytes # (Manual) (0.0-0.8) Eosinophils # (Manual) (0.0-0.7) Nucleated RBCs # 0 K/uL ESR (0-19) mm/hr Sodium 132 L (136-148) mmol/L Potassium 4.9 (3.5-5.1) mmol/L Chloride 98 (98-107) mmol/L Carbon Dioxide 24.4 (21.0-32.0) mmol/L BUN 14 (7.0-18.0) mg/dL Creatinine 1.1 (0.8-1.3) mg/dL Est Cr Clr Drug Dosing TNP Estimated GFR (MDRD) > 60.0 ml/min Glucose 307 H (74-106) mg/dL POC Glucose (70-99) mg/dL Lactic Acid (0.4-2.0) mmol/L Calcium 7.2 L (8.5-10.1) mg/dL Phosphorus (2.6-4.7) mg/dL Magnesium 1.9 (1.8-2.4) mg/dL Total Bilirubin 0.7 (0.2-1.0) mg/dL AST 45 H (15-37) IU/L ALT 21 (14-63) IU/L Alkaline Phosphatase 47 (46-116) U/L Creatine Kinase (26-308) U/L Troponin I < 0.050 (0.000-0.056) ng/mL C-Reactive Protein (0.00-0.90) mg/dL B-Natriuretic Peptide 21 (<100) PG/ML Total Protein 7.6 (6.4-8.2) g/dL Albumin 2.8 L (3.4-5.0) g/dL Globulin 4.8 H (2.6-4.0) g/dL Albumin/Globulin Ratio 0.6 L (0.9-1.6) TSH, Ultra Sensitive 1.24 (0.36-3.74) uIU/mL Urine Color Urine Appearance Urine pH (5.0-8.0) Ur Specific [place] (1.001-1.035) Urine Protein (NEGATIVE) mg/dL Urine Glucose (UA) (NEGATIVE) mg/dL Urine Ketones (NEGATIVE) mg/dL Urine Occult Blood (NEGATIVE) Urine Nitrite (NEGATIVE) Urine Bilirubin (NEGATIVE) Urine Urobilinogen (<2.0) EU/dL Ur Leukocyte Esterase (NEGATIVE) Urine RBC (0-2/HPF) Urine WBC (0-5/HPF) Ur Epithelial Cells (NONE-FEW) Urine Bacteria (NEGATIVE) Fine Granular Casts (NEGATIVE) Ethyl Alcohol < 3.0 mg/dL Influenza Type A RNA (NEGATIVE) Influenza Type B RNA (NEGATIVE) SARS-CoV-2 RNA (VALERIA) (NEGATIVE) 08/07/21 08/07/21 08/07/21 Range/Units 14:00 14:00 14:00 WBC (4.0-11.0) K/uL RBC (4.50-5.90) M/uL Hgb (13.0-17.0) g/dL Hct (38.0-50.0) % MCV (80.0-98.0) fL MCH (27.0-32.0) pg MCHC (31.0-37.0) g/dL RDW Std Deviation (28.0-62.0) fl RDW Coeff of Yasmani (11.0-15.0) % Plt Count (150-400) K/uL MPV (7.40-12.00) fL Neut % (Auto) (48.0-80.0) % Lymph % (Auto) (16.0-40.0) % [place] % (Auto) (0.0-15.0) % Eos % (Auto) (0.0-7.0) % Baso % (Auto) (0.0-1.5) % Neut # (Auto) (1.4-5.7) K/uL Lymph # (Auto) (0.6-2.4) K/uL [place] # (Auto) (0.0-0.8) K/uL Eos # (Auto) (0.0-0.7) K/uL Baso # (Auto) (0.0-0.1) K/uL Add Manual Diff Neutrophils % (Manual) (48.0-80.0) % Band Neutrophils % % Lymphocytes % (Manual) (16.0-40.0) % Monocytes % (Manual) (0.0-15.0) % Eosinophils % (Manual) (0.0-7.0) % Nucleated RBC % /100WBC Absolute Seg Neuts (1.4-5.7) Band Neutrophils # Lymphocytes # (Manual) (0.6-2.4) Monocytes # (Manual) (0.0-0.8) Eosinophils # (Manual) (0.0-0.7) Nucleated RBCs # K/uL ESR (0-19) mm/hr Sodium (136-148) mmol/L Potassium (3.5-5.1) mmol/L Chloride (98-107) mmol/L Carbon Dioxide (21.0-32.0) mmol/L BUN (7.0-18.0) mg/dL Creatinine (0.8-1.3) mg/dL Est Cr Clr Drug Dosing Estimated GFR (MDRD) ml/min Glucose (74-106) mg/dL POC Glucose (70-99) mg/dL Lactic Acid 3.4 H* (0.4-2.0) mmol/L Calcium (8.5-10.1) mg/dL Phosphorus (2.6-4.7) mg/dL Magnesium (1.8-2.4) mg/dL Total Bilirubin (0.2-1.0) mg/dL AST (15-37) IU/L ALT (14-63) IU/L Alkaline Phosphatase (46-116) U/L Creatine Kinase 296 (26-308) U/L Troponin I (0.000-0.056) ng/mL C-Reactive Protein (0.00-0.90) mg/dL B-Natriuretic Peptide (<100) PG/ML Total Protein (6.4-8.2) g/dL Albumin (3.4-5.0) g/dL Globulin (2.6-4.0) g/dL Albumin/Globulin Ratio (0.9-1.6) TSH, Ultra Sensitive (0.36-3.74) uIU/mL Urine Color Urine Appearance Urine pH (5.0-8.0) Ur Specific [place] (1.001-1.035) Urine Protein (NEGATIVE) mg/dL Urine Glucose (UA) (NEGATIVE) mg/dL Urine Ketones (NEGATIVE) mg/dL Urine Occult Blood (NEGATIVE) Urine Nitrite (NEGATIVE) Urine Bilirubin (NEGATIVE) Urine Urobilinogen (<2.0) EU/dL Ur Leukocyte Esterase (NEGATIVE) Urine RBC (0-2/HPF) Urine WBC (0-5/HPF) Ur Epithelial Cells (NONE-FEW) Urine Bacteria (NEGATIVE) Fine Granular Casts (NEGATIVE) Ethyl Alcohol mg/dL Influenza Type A RNA NEGATIVE (NEGATIVE) Influenza Type B RNA NEGATIVE (NEGATIVE) SARS-CoV-2 RNA ([place]) POSITIVE H (NEGATIVE) 08/07/21 08/07/21 08/07/21 Range/Units 14:00 15:10 15:12 WBC (4.0-11.0) K/uL RBC (4.50-5.90) M/uL Hgb (13.0-17.0) g/dL Hct (38.0-50.0) % MCV (80.0-98.0) fL MCH (27.0-32.0) pg MCHC (31.0-37.0) g/dL RDW Std Deviation (28.0-62.0) fl RDW Coeff of Yasmani (11.0-15.0) % Plt Count (150-400) K/uL MPV (7.40-12.00) fL Neut % (Auto) (48.0-80.0) % Lymph % (Auto) (16.0-40.0) % [place] % (Auto) (0.0-15.0) % Eos % (Auto) (0.0-7.0) % Baso % (Auto) (0.0-1.5) % Neut # (Auto) (1.4-5.7) K/uL Lymph # (Auto) (0.6-2.4) K/uL [place] # (Auto) (0.0-0.8) K/uL Eos # (Auto) (0.0-0.7) K/uL Baso # (Auto) (0.0-0.1) K/uL Add Manual Diff Neutrophils % (Manual) (48.0-80.0) % Band Neutrophils % % Lymphocytes % (Manual) (16.0-40.0) % Monocytes % (Manual) (0.0-15.0) % Eosinophils % (Manual) (0.0-7.0) % Nucleated RBC % /100WBC Absolute Seg Neuts (1.4-5.7) Band Neutrophils # Lymphocytes # (Manual) (0.6-2.4) Monocytes # (Manual) (0.0-0.8) Eosinophils # (Manual) (0.0-0.7) Nucleated RBCs # K/uL ESR 32 H (0-19) mm/hr Sodium (136-148) mmol/L Potassium (3.5-5.1) mmol/L Chloride (98-107) mmol/L Carbon Dioxide (21.0-32.0) mmol/L BUN (7.0-18.0) mg/dL Creatinine (0.8-1.3) mg/dL Est Cr Clr Drug Dosing Estimated GFR (MDRD) ml/min Glucose (74-106) mg/dL POC Glucose (70-99) mg/dL Lactic Acid (0.4-2.0) mmol/L Calcium (8.5-10.1) mg/dL Phosphorus (2.6-4.7) mg/dL Magnesium (1.8-2.4) mg/dL Total Bilirubin (0.2-1.0) mg/dL AST (15-37) IU/L ALT (14-63) IU/L Alkaline Phosphatase (46-116) U/L Creatine Kinase (26-308) U/L Troponin I (0.000-0.056) ng/mL C-Reactive Protein 6.40 H (0.00-0.90) mg/dL B-Natriuretic Peptide (<100) PG/ML Total Protein (6.4-8.2) g/dL Albumin (3.4-5.0) g/dL Globulin (2.6-4.0) g/dL Albumin/Globulin Ratio (0.9-1.6) TSH, Ultra Sensitive (0.36-3.74) uIU/mL Urine Color YELLOW Urine Appearance CLOUDY Urine pH 5.5 (5.0-8.0) Ur Specific [place] 1.020 (1.001-1.035) Urine Protein 100 H (NEGATIVE) mg/dL Urine Glucose (UA) >=1000 (NEGATIVE) mg/dL Urine Ketones NEGATIVE (NEGATIVE) mg/dL Urine Occult Blood MODERATE H (NEGATIVE) Urine Nitrite POSITIVE H (NEGATIVE) Urine Bilirubin NEGATIVE (NEGATIVE) Urine Urobilinogen 1.0 (<2.0) EU/dL Ur Leukocyte Esterase NEGATIVE (NEGATIVE) Urine RBC 0-3 (0-2/HPF) Urine WBC 30-40 (0-5/HPF) Ur Epithelial Cells FEW (NONE-FEW) Urine Bacteria 3+ H (NEGATIVE) Fine Granular Casts 0-1 (NEGATIVE) Ethyl Alcohol mg/dL Influenza Type A RNA (NEGATIVE) Influenza Type B RNA (NEGATIVE) SARS-CoV-2 RNA ([place]) (NEGATIVE) 08/07/21 08/08/21 08/08/21 Range/Units 19:09 05:29 05:29 WBC 6.42 (4.0-11.0) K/uL RBC 4.34 L (4.50-5.90) M/uL Hgb 14.6 (13.0-17.0) g/dL Hct 43.4 (38.0-50.0) % MCV 100.0 H (80.0-98.0) fL MCH 33.6 H (27.0-32.0) pg MCHC 33.6 (31.0-37.0) g/dL RDW Std Deviation 51.8 (28.0-62.0) fl RDW Coeff of Yasmani 14 (11.0-15.0) % Plt Count 132 L (150-400) K/uL MPV 10.40 (7.40-12.00) fL Neut % (Auto) (48.0-80.0) % Lymph % (Auto) (16.0-40.0) % [place] % (Auto) (0.0-15.0) % Eos % (Auto) (0.0-7.0) % Baso % (Auto) (0.0-1.5) % Neut # (Auto) (1.4-5.7) K/uL Lymph # (Auto) (0.6-2.4) K/uL [place] # (Auto) (0.0-0.8) K/uL Eos # (Auto) (0.0-0.7) K/uL Baso # (Auto) (0.0-0.1) K/uL Add Manual Diff YES Neutrophils % (Manual) 60 (48.0-80.0) % Band Neutrophils % 10 % Lymphocytes % (Manual) 27 (16.0-40.0) % Monocytes % (Manual) 2 (0.0-15.0) % Eosinophils % (Manual) 1 (0.0-7.0) % Nucleated RBC % 0.0 /100WBC Absolute Seg Neuts 3.9 (1.4-5.7) Band Neutrophils # 0.6 Lymphocytes # (Manual) 1.7 (0.6-2.4) Monocytes # (Manual) 0.1 (0.0-0.8) Eosinophils # (Manual) 0.1 (0.0-0.7) Nucleated RBCs # 0 K/uL ESR (0-19) mm/hr Sodium 137 (136-148) mmol/L Potassium 4.1 (3.5-5.1) mmol/L Chloride 103 (98-107) mmol/L Carbon Dioxide 27.6 (21.0-32.0) mmol/L BUN 14 (7.0-18.0) mg/dL Creatinine 0.8 (0.8-1.3) mg/dL Est Cr Clr Drug Dosing 84.69 Estimated GFR (MDRD) > 60.0 ml/min Glucose 225 H (74-106) mg/dL POC Glucose (70-99) mg/dL Lactic Acid 0.9 (0.4-2.0) mmol/L Calcium 7.4 L (8.5-10.1) mg/dL Phosphorus 3.2 (2.6-4.7) mg/dL Magnesium 2.1 (1.8-2.4) mg/dL Total Bilirubin 0.4 (0.2-1.0) mg/dL AST 35 (15-37) IU/L ALT 20 (14-63) IU/L Alkaline Phosphatase 45 L (46-116) U/L Creatine Kinase (26-308) U/L Troponin I (0.000-0.056) ng/mL C-Reactive Protein (0.00-0.90) mg/dL B-Natriuretic Peptide (<100) PG/ML Total Protein 7.3 (6.4-8.2) g/dL Albumin 2.6 L (3.4-5.0) g/dL Globulin 4.7 H (2.6-4.0) g/dL Albumin/Globulin Ratio 0.6 L (0.9-1.6) TSH, Ultra Sensitive (0.36-3.74) uIU/mL Urine Color Urine Appearance Urine pH (5.0-8.0) Ur Specific [place] (1.001-1.035) Urine Protein (NEGATIVE) mg/dL Urine Glucose (UA) (NEGATIVE) mg/dL Urine Ketones (NEGATIVE) mg/dL Urine Occult Blood (NEGATIVE) Urine Nitrite (NEGATIVE) Urine Bilirubin (NEGATIVE) Urine Urobilinogen (<2.0) EU/dL Ur Leukocyte Esterase (NEGATIVE) Urine RBC (0-2/HPF) Urine WBC (0-5/HPF) Ur Epithelial Cells (NONE-FEW) Urine Bacteria (NEGATIVE) Fine Granular Casts (NEGATIVE) Ethyl Alcohol mg/dL Influenza Type A RNA (NEGATIVE) Influenza Type B RNA (NEGATIVE) SARS-CoV-2 RNA ([place]) (NEGATIVE) 08/08/21 Range/Units 06:26 WBC (4.0-11.0) K/uL RBC (4.50-5.90) M/uL Hgb (13.0-17.0) g/dL Hct (38.0-50.0) % MCV (80.0-98.0) fL MCH (27.0-32.0) pg MCHC (31.0-37.0) g/dL RDW Std Deviation (28.0-62.0) fl RDW Coeff of Yasmani (11.0-15.0) % Plt Count (150-400) K/uL MPV (7.40-12.00) fL Neut % (Auto) (48.0-80.0) % Lymph % (Auto) (16.0-40.0) % [place] % (Auto) (0.0-15.0) % Eos % (Auto) (0.0-7.0) % Baso % (Auto) (0.0-1.5) % Neut # (Auto) (1.4-5.7) K/uL Lymph # (Auto) (0.6-2.4) K/uL [place] # (Auto) (0.0-0.8) K/uL Eos # (Auto) (0.0-0.7) K/uL Baso # (Auto) (0.0-0.1) K/uL Add Manual Diff Neutrophils % (Manual) (48.0-80.0) % Band Neutrophils % % Lymphocytes % (Manual) (16.0-40.0) % Monocytes % (Manual) (0.0-15.0) % Eosinophils % (Manual) (0.0-7.0) % Nucleated RBC % /100WBC Absolute Seg Neuts (1.4-5.7) Band Neutrophils # Lymphocytes # (Manual) (0.6-2.4) Monocytes # (Manual) (0.0-0.8) Eosinophils # (Manual) (0.0-0.7) Nucleated RBCs # K/uL ESR (0-19) mm/hr Sodium (136-148) mmol/L Potassium (3.5-5.1) mmol/L Chloride (98-107) mmol/L Carbon Dioxide (21.0-32.0) mmol/L BUN (7.0-18.0) mg/dL Creatinine (0.8-1.3) mg/dL Est Cr Clr Drug Dosing Estimated GFR (MDRD) ml/min Glucose (74-106) mg/dL POC Glucose 209 H (70-99) mg/dL Lactic Acid (0.4-2.0) mmol/L Calcium (8.5-10.1) mg/dL Phosphorus (2.6-4.7) mg/dL Magnesium (1.8-2.4) mg/dL Total Bilirubin (0.2-1.0) mg/dL AST (15-37) IU/L ALT (14-63) IU/L Alkaline Phosphatase (46-116) U/L Creatine Kinase (26-308) U/L Troponin I (0.000-0.056) ng/mL C-Reactive Protein (0.00-0.90) mg/dL B-Natriuretic Peptide (<100) PG/ML Total Protein (6.4-8.2) g/dL Albumin (3.4-5.0) g/dL Globulin (2.6-4.0) g/dL Albumin/Globulin Ratio (0.9-1.6) TSH, Ultra Sensitive (0.36-3.74) uIU/mL Urine Color Urine Appearance Urine pH (5.0-8.0) Ur Specific [place] (1.001-1.035) Urine Protein (NEGATIVE) mg/dL Urine Glucose (UA) (NEGATIVE) mg/dL Urine Ketones (NEGATIVE) mg/dL Urine Occult Blood (NEGATIVE) Urine Nitrite (NEGATIVE) Urine Bilirubin (NEGATIVE) Urine Urobilinogen (<2.0) EU/dL Ur Leukocyte Esterase (NEGATIVE) Urine RBC (0-2/HPF) Urine WBC (0-5/HPF) Ur Epithelial Cells (NONE-FEW) Urine Bacteria (NEGATIVE) Fine Granular Casts (NEGATIVE) Ethyl Alcohol mg/dL Influenza Type A RNA (NEGATIVE) Influenza Type B RNA (NEGATIVE) SARS-CoV-2 RNA ([place]) (NEGATIVE) Sam Results Last 24 Hours: Microbiology 08/07/21 14:00 Anaerobic Blood Culture - Final Blood - Venous Med Orders - Current: Current Medications Acetaminophen (Acetaminophen 325 Mg Tab) 650 mg PO Q4H PRN PRN Reason: Pain (Mild 1-3)/fever Last Admin: 08/08/21 05:28 Dose: 650 mg Documented by: Albuterol/Ipratropium (Albuterol/Ipratropium 3.0-0.5 Mg/3 Ml Neb Soln) 3 ml NEB Q4HRRT PRN PRN Reason: Shortness Of Breath/wheezing Albuterol/Ipratropium (Albuterol/Ipratropium 4 Gm Inhalation Innis) 0 gm INH Q4H VÍCTOR Last Admin: 08/08/21 08:47 Dose: 1 puff Documented by: Dexamethasone (Dexamethasone 4 Mg Tab) 6 mg PO DAILY [facility] Last Admin: 08/08/21 08:32 Dose: 6 mg Documented by: Dextrose/Water (50% Dextrose In Water 50 Ml Syringe) 50 ml IVPUSH ASDIRECTED PRN PRN Reason: Hypoglycemia Enoxaparin Sodium (Enoxaparin 40 Mg/0.4 Ml Syringe) 40 mg SUBCUT Q24H [facility] Last Admin: 08/07/21 18:10 Dose: 40 mg Documented by: Glucagon (Glucagon,Human Recombinant 1 Mg Vial) 1 mg IM ASDIRECTED PRN PRN Reason: Hypoglycemia Guaifenesin/Dextromethorphan (Guaifenesin/Dextromethorphan 100-10 Mg/5 Ml Soln 10 Ml Cup) 10 ml PO Q4H PRN PRN Reason: Cough Remdesivir 100 mg/ Sodium (Chloride) 100 mls @ 100 mls/hr IV Q24H [facility] Stop: 08/11/21 18:14 Ceftriaxone Sodium/Dextrose 1 (gm/ Premix) 50 mls @ 100 mls/hr IV Q24H [facility] Last Admin: 08/08/21 08:33 Dose: 100 mls/hr Documented by: Pantoprazole Sodium 40 mg/ (Sodium Chloride) 10 mls @ 200 mls/hr IV Q24H [facility] Last Admin: 08/07/21 18:09 Dose: 200 mls/hr Documented by: Insulin Aspart (Insulin Aspart 100 Units/Ml 3 Ml Pen) 0 unit SUBCUT TIDAC [facility]; Protocol Last Admin: 08/08/21 08:44 Dose: 4 units Documented by: Ondansetron HCl (Ondansetron 4 Mg/2 Ml Sdv) 4 mg IVPUSH Q4H PRN PRN Reason: Nausea/Vomiting Pneumococcal Polyvalent Vaccine (Pneumococcal 23-Valent Conjugate Vaccine 0.5 Ml Syringe) 25 mcg IM .ONCE ONE Stop: 08/13/21 09:01 Discontinued Medications Acetaminophen (Acetaminophen 500 Mg Tab) 1,000 mg PO ONETIME ONE Stop: 08/07/21 14:39 Last Admin: 08/07/21 15:03 Dose: 1,000 mg Documented by: Dexamethasone (Dexamethasone 4 Mg Tab) 6 mg PO ONETIME ONE Stop: 08/07/21 15:13 Last Admin: 08/07/21 15:38 Dose: 6 mg Documented by: Lactated Ringer's (Ringers, Lactated) 1,000 mls @ 999 mls/hr IV ASDIRECTED [facility] Last Admin: 08/07/21 15:04 Dose: 999 mls/hr Documented by: Lactated Ringer's (Ringers, Lactated) 1,000 mls @ 150 mls/hr IV ASDIRECTED [facility] Last Admin: 08/07/21 15:03 Dose: 150 mls/hr Documented by: Remdesivir 200 mg/ Sodium (Chloride) 250 mls @ 250 mls/hr IV ONETIME ONE Stop: 08/07/21 15:04 Last Admin: 08/07/21 16:05 Dose: 250 mls/hr Documented by: Ceftriaxone Sodium/Dextrose 2 (gm/ Premix) 50 mls @ 100 mls/hr IV ONETIME ONE Stop: 08/07/21 16:19 Last Admin: 08/07/21 16:13 Dose: 100 mls/hr Documented by: Influenza Virus Vaccine (Pharmacy To Dose - Influenza Vaccine) 1 each IM ONETIME ONE Stop: 08/07/21 17:14 Influenza Virus Vaccine (Flu Vacc [id number](65up)/Mf59c/Pf 60 Mcg/0.5 Ml Syringe) 60 mcg IM .ONCE ONE Stop: 08/08/21 09:01 Pantoprazole Sodium (Pantoprazole 40 Mg Vial) 40 mg IV Q24H [facility] Last Admin: 08/07/21 19:13 Dose: Not Given Documented by: Pneumococcal Polyvalent Vaccine (Pneumococcal 23-Valent Conjugate Vaccine 0.5 Ml Syringe) 25 mcg IM .ONCE ONE Stop: 08/07/21 17:14 - Exam Quality Assessment: Supplemental Oxygen General: Alert, Oriented, Cooperative, No Acute Distress Lungs: Normal Respiratory Effort, Decreased Breath Sounds, Crackles Cardiovascular: Regular Rate, Regular Rhythm GI/Abdominal Exam: Normal Bowel Sounds, Soft, Non-Tender Back Exam: Normal Inspection, Full Range of Motion - Patient Data Lab Results Last 24 hrs: Laboratory Results - last 24 hr 08/07/21 08/07/21 08/07/21 Range/Units 14:00 14:00 14:00 WBC 7.49 (4.0-11.0) K/uL RBC 4.53 (4.50-5.90) M/uL Hgb 15.7 (13.0-17.0) g/dL Hct 45.7 (38.0-50.0) % MCV 100.9 H (80.0-98.0) fL MCH 34.7 H (27.0-32.0) pg MCHC 34.4 (31.0-37.0) g/dL RDW Std Deviation 52.7 (28.0-62.0) fl RDW Coeff of Yasmani 14 (11.0-15.0) % Plt Count 130 L (150-400) K/uL MPV 10.50 (7.40-12.00) fL Neut % (Auto) 80.0 (48.0-80.0) % Lymph % (Auto) 14.2 L (16.0-40.0) % [place] % (Auto) 5.6 (0.0-15.0) % Eos % (Auto) 0.1 (0.0-7.0) % Baso % (Auto) 0.1 (0.0-1.5) % Neut # (Auto) 6.0 H (1.4-5.7) K/uL Lymph # (Auto) 1.1 (0.6-2.4) K/uL [place] # (Auto) 0.4 (0.0-0.8) K/uL Eos # (Auto) 0.0 (0.0-0.7) K/uL Baso # (Auto) 0.0 (0.0-0.1) K/uL Add Manual Diff Neutrophils % (Manual) (48.0-80.0) % Band Neutrophils % % Lymphocytes % (Manual) (16.0-40.0) % Monocytes % (Manual) (0.0-15.0) % Eosinophils % (Manual) (0.0-7.0) % Nucleated RBC % 0.0 /100WBC Absolute Seg Neuts (1.4-5.7) Band Neutrophils # Lymphocytes # (Manual) (0.6-2.4) Monocytes # (Manual) (0.0-0.8) Eosinophils # (Manual) (0.0-0.7) Nucleated RBCs # 0 K/uL ESR (0-19) mm/hr Sodium 132 L (136-148) mmol/L Potassium 4.9 (3.5-5.1) mmol/L Chloride 98 (98-107) mmol/L Carbon Dioxide 24.4 (21.0-32.0) mmol/L BUN 14 (7.0-18.0) mg/dL Creatinine 1.1 (0.8-1.3) mg/dL Est Cr Clr Drug Dosing TNP Estimated GFR (MDRD) > 60.0 ml/min Glucose 307 H (74-106) mg/dL POC Glucose (70-99) mg/dL Lactic Acid (0.4-2.0) mmol/L Calcium 7.2 L (8.5-10.1) mg/dL Phosphorus (2.6-4.7) mg/dL Magnesium 1.9 (1.8-2.4) mg/dL Total Bilirubin 0.7 (0.2-1.0) mg/dL AST 45 H (15-37) IU/L ALT 21 (14-63) IU/L Alkaline Phosphatase 47 (46-116) U/L Creatine Kinase (26-308) U/L Troponin I < 0.050 (0.000-0.056) ng/mL C-Reactive Protein (0.00-0.90) mg/dL B-Natriuretic Peptide 21 (<100) PG/ML Total Protein 7.6 (6.4-8.2) g/dL Albumin 2.8 L (3.4-5.0) g/dL Globulin 4.8 H (2.6-4.0) g/dL Albumin/Globulin Ratio 0.6 L (0.9-1.6) TSH, Ultra Sensitive 1.24 (0.36-3.74) uIU/mL Urine Color Urine Appearance Urine pH (5.0-8.0) Ur Specific [place] (1.001-1.035) Urine Protein (NEGATIVE) mg/dL Urine Glucose (UA) (NEGATIVE) mg/dL Urine Ketones (NEGATIVE) mg/dL Urine Occult Blood (NEGATIVE) Urine Nitrite (NEGATIVE) Urine Bilirubin (NEGATIVE) Urine Urobilinogen (<2.0) EU/dL Ur Leukocyte Esterase (NEGATIVE) Urine RBC (0-2/HPF) Urine WBC (0-5/HPF) Ur Epithelial Cells (NONE-FEW) Urine Bacteria (NEGATIVE) Fine Granular Casts (NEGATIVE) Ethyl Alcohol < 3.0 mg/dL Influenza Type A RNA (NEGATIVE) Influenza Type B RNA (NEGATIVE) SARS-CoV-2 RNA ([place]) (NEGATIVE) 08/07/21 08/07/21 08/07/21 Range/Units 14:00 14:00 14:00 WBC (4.0-11.0) K/uL RBC (4.50-5.90) M/uL Hgb (13.0-17.0) g/dL Hct (38.0-50.0) % MCV (80.0-98.0) fL MCH (27.0-32.0) pg MCHC (31.0-37.0) g/dL RDW Std Deviation (28.0-62.0) fl RDW Coeff of Yasmani (11.0-15.0) % Plt Count (150-400) K/uL MPV (7.40-12.00) fL Neut % (Auto) (48.0-80.0) % Lymph % (Auto) (16.0-40.0) % [place] % (Auto) (0.0-15.0) % Eos % (Auto) (0.0-7.0) % Baso % (Auto) (0.0-1.5) % Neut # (Auto) (1.4-5.7) K/uL Lymph # (Auto) (0.6-2.4) K/uL [place] # (Auto) (0.0-0.8) K/uL Eos # (Auto) (0.0-0.7) K/uL Baso # (Auto) (0.0-0.1) K/uL Add Manual Diff Neutrophils % (Manual) (48.0-80.0) % Band Neutrophils % % Lymphocytes % (Manual) (16.0-40.0) % Monocytes % (Manual) (0.0-15.0) % Eosinophils % (Manual) (0.0-7.0) % Nucleated RBC % /100WBC Absolute Seg Neuts (1.4-5.7) Band Neutrophils # Lymphocytes # (Manual) (0.6-2.4) Monocytes # (Manual) (0.0-0.8) Eosinophils # (Manual) (0.0-0.7) Nucleated RBCs # K/uL ESR (0-19) mm/hr Sodium (136-148) mmol/L Potassium (3.5-5.1) mmol/L Chloride (98-107) mmol/L Carbon Dioxide (21.0-32.0) mmol/L BUN (7.0-18.0) mg/dL Creatinine (0.8-1.3) mg/dL Est Cr Clr Drug Dosing Estimated GFR (MDRD) ml/min Glucose (74-106) mg/dL POC Glucose (70-99) mg/dL Lactic Acid 3.4 H* (0.4-2.0) mmol/L Calcium (8.5-10.1) mg/dL Phosphorus (2.6-4.7) mg/dL Magnesium (1.8-2.4) mg/dL Total Bilirubin (0.2-1.0) mg/dL AST (15-37) IU/L ALT (14-63) IU/L Alkaline Phosphatase (46-116) U/L Creatine Kinase 296 (26-308) U/L Troponin I (0.000-0.056) ng/mL C-Reactive Protein (0.00-0.90) mg/dL B-Natriuretic Peptide (<100) PG/ML Total Protein (6.4-8.2) g/dL Albumin (3.4-5.0) g/dL Globulin (2.6-4.0) g/dL Albumin/Globulin Ratio (0.9-1.6) TSH, Ultra Sensitive (0.36-3.74) uIU/mL Urine Color Urine Appearance Urine pH (5.0-8.0) Ur Specific [place] (1.001-1.035) Urine Protein (NEGATIVE) mg/dL Urine Glucose (UA) (NEGATIVE) mg/dL Urine Ketones (NEGATIVE) mg/dL Urine Occult Blood (NEGATIVE) Urine Nitrite (NEGATIVE) Urine Bilirubin (NEGATIVE) Urine Urobilinogen (<2.0) EU/dL Ur Leukocyte Esterase (NEGATIVE) Urine RBC (0-2/HPF) Urine WBC (0-5/HPF) Ur Epithelial Cells (NONE-FEW) Urine Bacteria (NEGATIVE) Fine Granular Casts (NEGATIVE) Ethyl Alcohol mg/dL Influenza Type A RNA NEGATIVE (NEGATIVE) Influenza Type B RNA NEGATIVE (NEGATIVE) SARS-CoV-2 RNA ([place]) POSITIVE H (NEGATIVE) 08/07/21 08/07/21 08/07/21 Range/Units 14:00 15:10 15:12 WBC (4.0-11.0) K/uL RBC (4.50-5.90) M/uL Hgb (13.0-17.0) g/dL Hct (38.0-50.0) % MCV (80.0-98.0) fL MCH (27.0-32.0) pg MCHC (31.0-37.0) g/dL RDW Std Deviation (28.0-62.0) fl RDW Coeff of Yasmani (11.0-15.0) % Plt Count (150-400) K/uL MPV (7.40-12.00) fL Neut % (Auto) (48.0-80.0) % Lymph % (Auto) (16.0-40.0) % [place] % (Auto) (0.0-15.0) % Eos % (Auto) (0.0-7.0) % Baso % (Auto) (0.0-1.5) % Neut # (Auto) (1.4-5.7) K/uL Lymph # (Auto) (0.6-2.4) K/uL [place] # (Auto) (0.0-0.8) K/uL Eos # (Auto) (0.0-0.7) K/uL Baso # (Auto) (0.0-0.1) K/uL Add Manual Diff Neutrophils % (Manual) (48.0-80.0) % Band Neutrophils % % Lymphocytes % (Manual) (16.0-40.0) % Monocytes % (Manual) (0.0-15.0) % Eosinophils % (Manual) (0.0-7.0) % Nucleated RBC % /100WBC Absolute Seg Neuts (1.4-5.7) Band Neutrophils # Lymphocytes # (Manual) (0.6-2.4) Monocytes # (Manual) (0.0-0.8) Eosinophils # (Manual) (0.0-0.7) Nucleated RBCs # K/uL ESR 32 H (0-19) mm/hr Sodium (136-148) mmol/L Potassium (3.5-5.1) mmol/L Chloride (98-107) mmol/L Carbon Dioxide (21.0-32.0) mmol/L BUN (7.0-18.0) mg/dL Creatinine (0.8-1.3) mg/dL Est Cr Clr Drug Dosing Estimated GFR (MDRD) ml/min Glucose (74-106) mg/dL POC Glucose (70-99) mg/dL Lactic Acid (0.4-2.0) mmol/L Calcium (8.5-10.1) mg/dL Phosphorus (2.6-4.7) mg/dL Magnesium (1.8-2.4) mg/dL Total Bilirubin (0.2-1.0) mg/dL AST (15-37) IU/L ALT (14-63) IU/L Alkaline Phosphatase (46-116) U/L Creatine Kinase (26-308) U/L Troponin I (0.000-0.056) ng/mL C-Reactive Protein 6.40 H (0.00-0.90) mg/dL B-Natriuretic Peptide (<100) PG/ML Total Protein (6.4-8.2) g/dL Albumin (3.4-5.0) g/dL Globulin (2.6-4.0) g/dL Albumin/Globulin Ratio (0.9-1.6) TSH, Ultra Sensitive (0.36-3.74) uIU/mL Urine Color YELLOW Urine Appearance CLOUDY Urine pH 5.5 (5.0-8.0) Ur Specific [place] 1.020 (1.001-1.035) Urine Protein 100 H (NEGATIVE) mg/dL Urine Glucose (UA) >=1000 (NEGATIVE) mg/dL Urine Ketones NEGATIVE (NEGATIVE) mg/dL Urine Occult Blood MODERATE H (NEGATIVE) Urine Nitrite POSITIVE H (NEGATIVE) Urine Bilirubin NEGATIVE (NEGATIVE) Urine Urobilinogen 1.0 (<2.0) EU/dL Ur Leukocyte Esterase NEGATIVE (NEGATIVE) Urine RBC 0-3 (0-2/HPF) Urine WBC 30-40 (0-5/HPF) Ur Epithelial Cells FEW (NONE-FEW) Urine Bacteria 3+ H (NEGATIVE) Fine Granular Casts 0-1 (NEGATIVE) Ethyl Alcohol mg/dL Influenza Type A RNA (NEGATIVE) Influenza Type B RNA (NEGATIVE) SARS-CoV-2 RNA (VALER[place]) (NEGATIVE) 08/07/21 08/08/21 08/08/21 Range/Units 19:09 05:29 05:29 WBC 6.42 (4.0-11.0) K/uL RBC 4.34 L (4.50-5.90) M/uL Hgb 14.6 (13.0-17.0) g/dL Hct 43.4 (38.0-50.0) % MCV 100.0 H (80.0-98.0) fL MCH 33.6 H (27.0-32.0) pg MCHC 33.6 (31.0-37.0) g/dL RDW Std Deviation 51.8 (28.0-62.0) fl RDW Coeff of Yasmani 14 (11.0-15.0) % Plt Count 132 L (150-400) K/uL MPV 10.40 (7.40-12.00) fL Neut % (Auto) (48.0-80.0) % Lymph % (Auto) (16.0-40.0) % [place] % (Auto) (0.0-15.0) % Eos % (Auto) (0.0-7.0) % Baso % (Auto) (0.0-1.5) % Neut # (Auto) (1.4-5.7) K/uL Lymph # (Auto) (0.6-2.4) K/uL [place] # (Auto) (0.0-0.8) K/uL Eos # (Auto) (0.0-0.7) K/uL Baso # (Auto) (0.0-0.1) K/uL Add Manual Diff YES Neutrophils % (Manual) 60 (48.0-80.0) % Band Neutrophils % 10 % Lymphocytes % (Manual) 27 (16.0-40.0) % Monocytes % (Manual) 2 (0.0-15.0) % Eosinophils % (Manual) 1 (0.0-7.0) % Nucleated RBC % 0.0 /100WBC Absolute Seg Neuts 3.9 (1.4-5.7) Band Neutrophils # 0.6 Lymphocytes # (Manual) 1.7 (0.6-2.4) Monocytes # (Manual) 0.1 (0.0-0.8) Eosinophils # (Manual) 0.1 (0.0-0.7) Nucleated RBCs # 0 K/uL ESR (0-19) mm/hr Sodium 137 (136-148) mmol/L Potassium 4.1 (3.5-5.1) mmol/L Chloride 103 (98-107) mmol/L Carbon Dioxide 27.6 (21.0-32.0) mmol/L BUN 14 (7.0-18.0) mg/dL Creatinine 0.8 (0.8-1.3) mg/dL Est Cr Clr Drug Dosing 84.69 Estimated GFR (MDRD) > 60.0 ml/min Glucose 225 H (74-106) mg/dL POC Glucose (70-99) mg/dL Lactic Acid 0.9 (0.4-2.0) mmol/L Calcium 7.4 L (8.5-10.1) mg/dL Phosphorus 3.2 (2.6-4.7) mg/dL Magnesium 2.1 (1.8-2.4) mg/dL Total Bilirubin 0.4 (0.2-1.0) mg/dL AST 35 (15-37) IU/L ALT 20 (14-63) IU/L Alkaline Phosphatase 45 L (46-116) U/L Creatine Kinase (26-308) U/L Troponin I (0.000-0.056) ng/mL C-Reactive Protein (0.00-0.90) mg/dL B-Natriuretic Peptide (<100) PG/ML Total Protein 7.3 (6.4-8.2) g/dL Albumin 2.6 L (3.4-5.0) g/dL Globulin 4.7 H (2.6-4.0) g/dL Albumin/Globulin Ratio 0.6 L (0.9-1.6) TSH, Ultra Sensitive (0.36-3.74) uIU/mL Urine Color Urine Appearance Urine pH (5.0-8.0) Ur Specific [place] (1.001-1.035) Urine Protein (NEGATIVE) mg/dL Urine Glucose (UA) (NEGATIVE) mg/dL Urine Ketones (NEGATIVE) mg/dL Urine Occult Blood (NEGATIVE) Urine Nitrite (NEGATIVE) Urine Bilirubin (NEGATIVE) Urine Urobilinogen (<2.0) EU/dL Ur Leukocyte Esterase (NEGATIVE) Urine RBC (0-2/HPF) Urine WBC (0-5/HPF) Ur Epithelial Cells (NONE-FEW) Urine Bacteria (NEGATIVE) Fine Granular Casts (NEGATIVE) Ethyl Alcohol mg/dL Influenza Type A RNA (NEGATIVE) Influenza Type B RNA (NEGATIVE) SARS-CoV-2 RNA ([place]) (NEGATIVE) 08/08/21 Range/Units 06:26 WBC (4.0-11.0) K/uL RBC (4.50-5.90) M/uL Hgb (13.0-17.0) g/dL Hct (38.0-50.0) % MCV (80.0-98.0) fL MCH (27.0-32.0) pg MCHC (31.0-37.0) g/dL RDW Std Deviation (28.0-62.0) fl RDW Coeff of Yasmani (11.0-15.0) % Plt Count (150-400) K/uL MPV (7.40-12.00) fL Neut % (Auto) (48.0-80.0) % Lymph % (Auto) (16.0-40.0) % [place] % (Auto) (0.0-15.0) % Eos % (Auto) (0.0-7.0) % Baso % (Auto) (0.0-1.5) % Neut # (Auto) (1.4-5.7) K/uL Lymph # (Auto) (0.6-2.4) K/uL [place] # (Auto) (0.0-0.8) K/uL Eos # (Auto) (0.0-0.7) K/uL Baso # (Auto) (0.0-0.1) K/uL Add Manual Diff Neutrophils % (Manual) (48.0-80.0) % Band Neutrophils % % Lymphocytes % (Manual) (16.0-40.0) % Monocytes % (Manual) (0.0-15.0) % Eosinophils % (Manual) (0.0-7.0) % Nucleated RBC % /100WBC Absolute Seg Neuts (1.4-5.7) Band Neutrophils # Lymphocytes # (Manual) (0.6-2.4) Monocytes # (Manual) (0.0-0.8) Eosinophils # (Manual) (0.0-0.7) Nucleated RBCs # K/uL ESR (0-19) mm/hr Sodium (136-148) mmol/L Potassium (3.5-5.1) mmol/L Chloride (98-107) mmol/L Carbon Dioxide (21.0-32.0) mmol/L BUN (7.0-18.0) mg/dL Creatinine (0.8-1.3) mg/dL Est Cr Clr Drug Dosing Estimated GFR (MDRD) ml/min Glucose (74-106) mg/dL POC Glucose 209 H (70-99) mg/dL Lactic Acid (0.4-2.0) mmol/L Calcium (8.5-10.1) mg/dL Phosphorus (2.6-4.7) mg/dL Magnesium (1.8-2.4) mg/dL Total Bilirubin (0.2-1.0) mg/dL AST (15-37) IU/L ALT (14-63) IU/L Alkaline Phosphatase (46-116) U/L Creatine Kinase (26-308) U/L Troponin I (0.000-0.056) ng/mL C-Reactive Protein (0.00-0.90) mg/dL B-Natriuretic Peptide (<100) PG/ML Total Protein (6.4-8.2) g/dL Albumin (3.4-5.0) g/dL Globulin (2.6-4.0) g/dL Albumin/Globulin Ratio (0.9-1.6) TSH, Ultra Sensitive (0.36-3.74) uIU/mL Urine Color Urine Appearance Urine pH (5.0-8.0) Ur Specific [place] (1.001-1.035) Urine Protein (NEGATIVE) mg/dL Urine Glucose (UA) (NEGATIVE) mg/dL Urine Ketones (NEGATIVE) mg/dL Urine Occult Blood (NEGATIVE) Urine Nitrite (NEGATIVE) Urine Bilirubin (NEGATIVE) Urine Urobilinogen (<2.0) EU/dL Ur Leukocyte Esterase (NEGATIVE) Urine RBC (0-2/HPF) Urine WBC (0-5/HPF) Ur Epithelial Cells (NONE-FEW) Urine Bacteria (NEGATIVE) Fine Granular Casts (NEGATIVE) Ethyl Alcohol mg/dL Influenza Type A RNA (NEGATIVE) Influenza Type B RNA (NEGATIVE) SARS-CoV-2 RNA ([place]) (NEGATIVE) Result Diagrams: 08/08/21 05:29 08/08/21 05:29 Sam Results Last 24 hrs: Microbiology 08/07/21 14:00 Anaerobic Blood Culture - Final Blood - Venous Sepsis Event Note - Evaluation Sepsis Screening Result: No Definite Risk - Focused Exam Vital Signs: Vital Signs Temp Pulse Resp BP Pulse Ox 08/08/21 07:00 36.2 C 73 16 113/64 93 L 08/08/21 03:55 36.3 C 67 22 H 117/76 92 L 08/07/21 23:21 36.1 C 70 20 126/77 92 L - Problem List & Annotations (1) Acute respiratory failure with hypoxia SNOMED Code(s): 21761357, 982234396 Code(s): J96.01 - ACUTE RESPIRATORY FAILURE WITH HYPOXIA Status: Acute Current Visit: Yes (2) COVID-19 SNOMED Code(s): 088743105 Code(s): U07.1 - COVID-19 Status: Acute Current Visit: Yes (3) Diabetes mellitus SNOMED Code(s): 92105913 Code(s): E11.9 - TYPE 2 DIABETES MELLITUS WITHOUT COMPLICATIONS Status: Acute Current Visit: No (4) UTI (urinary tract infection) SNOMED Code(s): 87701024 Code(s): N39.0 - URINARY TRACT INFECTION, SITE NOT SPECIFIED Status: Acute Current Visit: No (5) DM2 (diabetes mellitus, type 2) SNOMED Code(s): 45590843 Code(s): E11.9 - TYPE 2 DIABETES MELLITUS WITHOUT COMPLICATIONS Status: Chronic Priority: High Current Visit: No Qualifiers: Diabetes mellitus correction insulin use: without meterman use Diabetes mellitus complication status: without complication Qualified Code(s): E11.9 - Type 2 diabetes mellitus without complications (6) Diverticulosis SNOMED Code(s): 90164153 Code(s): K57.90 - DVRTCLOS OF INTEST, PART UNSP, W/O PERF OR ABSCESS W/O BLEED Status: Chronic Priority: Medium Current Visit: No Qualifiers: Diverticulosis site: diverticulosis of large intestine Diverticulosis bleeding: diverticulosis without bleeding Qualified Code(s): K57.30 - Divertic ulosis of large intestine without perforation or abscess without bleeding (7) Hyperlipidemia SNOMED Code(s): 01267524 Code(s): E78.5 - HYPERLIPIDEMIA, UNSPECIFIED Status: Chronic Current V isit: No (8) Obesity SNOMED Code(s): 940379245, 711646675 Code(s): E66.9 - OBESITY, UNSPECIFIED Status: Chronic Current Visit: No Qualifiers: Obesity classification: adult class 3 (BMI >= 40) Body mass index: BMI 40.0-44.9 (9) Sepsis SNOMED Code(s): 30399295 Code(s): A41.9 - SEPSIS, UNSPECIFIED ORGANISM Status: Resolved Current Visit: No Qualifiers: Sepsis type: sepsis due to unspecified organism Qualified Code(s): A41.9 - Sepsis, unspecified organism - Problem List Review Problem List Initiated/Reviewed/Updated: Yes - My Orders Last 24 Hours: My Active Orders 08/07/21 15:10 CULTURE URINE [MREF] Routine 08/07/21 Dinner [employer] Diet [DIET] 08/07/21 17:02 Ambulate [RC] ASDIRECTED Blood Glucose Check, Bedside [RC] TIDMEALS Acetaminophen [TylenoL] 650 mg PO Q4H PRN Albuterol/Ipratropium [DuoNeb 3.0-0.5 MG/3 ML] 3 ml NEB Q4HRRT PRN Ondansetron [Zofran] 4 mg IVPUSH Q4H PRN 08/07/21 17:03 Oxygen Therapy [RC] PRN VTE/DVT Education [RC] PER UNIT ROUTINE Vital Signs [RC] Q4H Sequential Compression Device [OM.PC] Per Unit Routine 08/07/21 17:04 Antiembolic Devices [RC] PER UNIT ROUTINE 08/07/21 17:05 RT Aerosol Therapy [RC] ASDIRECTED 08/07/21 17:10 RT Post Treatment Assessment [RC] Click to Edit RT Pre-Treatment Assessment [RC] Click to Edit Dextromethorphan/guaiFENesin [Robitussin DM] 10 ml PO Q4H PRN 08/07/21 17:11 Incentive Spirometry [RT Incentive Spirometry] [RC] Q2HWA 08/07/21 17:14 Vaccine to be Administered/Admin Charge [RC] ASDIRECTED 08/07/21 17:15 Albuterol/Ipratropium [Combivent Respimat] See Dose Instructions INH Q4H Dextrose 50% in Water 50 ml IVPUSH ASDIRECTED PRN Enoxaparin [Lovenox] 40 mg SUBCUT Q24H Glucagon,Human Recombinant [GlucaGen] 1 mg IM ASDIRECTED PRN 08/07/21 17:30 Pantoprazole [ProTONIX IV] 40 mg Sodium Chloride 0.9% [Normal Saline] 10 ml IV Q24H 08/08/21 07:30 Insulin Aspart [NovoLOG] See Protocol SUBCUT TIDAC 08/08/21 09:00 cefTRIAXone [Rocephin in Dextrose,Iso-Osm 1 GM/50 ML] 1 gm Premix Bag 1 bag IV Q24H dexAMETHasone 6 mg PO DAILY 08/08/21 17:15 Remdesivir 100 mg Sodium Chloride 0.9% [Normal Saline AdvBag] 100 ml IV Q24H 08/09/21 05:11 CBC WITH AUTO DIFF [HEME] AM CMP [COMPREHENSIVE METABOLIC PN,CMP] [CHEM] AM MAGNESIUM [CHEM] AM PHOSPHORUS [CHEM] AM 08/13/21 09:00 Pneumococcal 23-Valent Conjug [Pneumovax 23] 25 mcg IM .ONCE ONE - Plan Plan:: 71-year-old male admitted secondary to Covid hypoxia Continue oxygen support via nasal cannula Continue oxygen support via Continue IV remdesivir Continue oral Decadron Continue subcut Lovenox for DVT prophylaxis Continue scheduled Combivent Continue as needed duo nebs Continue incentive spirometry Encourage proning IV Zofran for nausea and vomiting IV pantoprazole daily for GI prophylaxis Guafenesin for cough OOB to chair Sliding scale insulin for diabetes
[2021-08-08] MEDS: Enoxaparin 40 MG/0.4 ML Syringe SUBCUT SCH (17:23)
[2021-08-08] MEDS: Pantoprazole 40 MG in Sodium Chloride 0.9% 10 ML IV SCH (17:24)
[2021-08-08] MEDS: REMDESIVIR 100 MG in Sodium Chloride 0.9% 100 ML IV SCH (17:31)
[2021-08-09] MEDS: Albuterol/Ipratropium 4 GM Inhalation Spray INH SCH ×6 (01:23→20:54)
[2021-08-09] MEDS: Acetaminophen 325 MG Tab PO PRN (04:44)
[2021-08-09 07:20] LABS: BLOOD UREA NITROGEN,BUN 17 mg/dL (7.0-18.0); CARBON DIOXIDE,CO2 26.9 mmol/L (21.0-32.0); CHLORIDE,CL 102 mmol/L (98-107); GLUCOSE RANDOM 176 mg/dL (74-106); POTASSIUM,K 3.4 mmol/L (3.5-5.1); SODIUM,NA 138 mmol/L (136-148)
[2021-08-09] MEDS: cefTRIAXone 1 GM in Premix Bag 1 BAG IV SCH (08:32)
[2021-08-09] MEDS: Dexamethasone 4 MG Tab PO SCH (08:34)
[2021-08-09] MEDS: Insulin Aspart 100 Units/ML 3 ML Pen SUBCUT SCH ×3 (08:38→18:16)
[2021-08-09] MEDS: guaiFENesin/Dextromethorphan 100-10 MG/5 ML Soln 10 ML Cup PO PRN ×2 (09:30→16:58)
--- NOTE | 2021-08-09 15:27 | PCM.PN ---
- General Info Date of Service: 08/09/21 - Review of Systems Systems Review Comment:: reports shortness of breath, needs help with walking - Patient Data Vitals - Most Recent: Last Vital Signs Temp 37.6 C 08/09/21 12:00 Pulse 84 08/09/21 12:00 Resp 19 08/09/21 12:00 BP 134/70 08/09/21 12:00 Pulse Ox 90 L 08/09/21 12:10 Weight - Most Recent: 153.995 kg I&O - Last 24 Hours: Intake & Output 08/09/21 08/09/21 08/09/21 06:59 14:59 22:59 Intake Total 750 Output Total 950 Balance -200 Lab Results Last 24 Hours: Laboratory Results - last 24 hr 08/09/21 08/09/21 08/09/21 Range/Units 06:30 06:30 06:32 WBC 9.79 (4.0-11.0) K/uL RBC 4.23 L (4.50-5.90) M/uL Hgb 14.4 (13.0-17.0) g/dL Hct 42.1 (38.0-50.0) % MCV 99.5 H (80.0-98.0) fL MCH 34.0 H (27.0-32.0) pg MCHC 34.2 (31.0-37.0) g/dL RDW Std Deviation 49.4 (28.0-62.0) fl RDW Coeff of Yasmani 14 (11.0-15.0) % Plt Count 150 (150-400) K/uL MPV 10.10 (7.40-12.00) fL Neut % (Auto) 76.2 (48.0-80.0) % Lymph % (Auto) 19.2 (16.0-40.0) % [place] % (Auto) 4.5 (0.0-15.0) % Eos % (Auto) 0.0 (0.0-7.0) % Baso % (Auto) 0.1 (0.0-1.5) % Neut # (Auto) 7.5 H (1.4-5.7) K/uL Lymph # (Auto) 1.9 (0.6-2.4) K/uL [place] # (Auto) 0.4 (0.0-0.8) K/uL Eos # (Auto) 0.0 (0.0-0.7) K/uL Baso # (Auto) 0.0 (0.0-0.1) K/uL Nucleated RBC % 0.0 /100WBC Nucleated RBCs # 0 K/uL Sodium 138 (136-148) mmol/L Potassium 3.4 L (3.5-5.1) mmol/L Chloride 102 (98-107) mmol/L Carbon Dioxide 26.9 (21.0-32.0) mmol/L BUN 17 (7.0-18.0) mg/dL Creatinine 0.8 (0.8-1.3) mg/dL Est Cr Clr Drug Dosing 84.69 mL/min Estimated GFR (MDRD) > 60.0 ml/min Glucose 176 H (74-106) mg/dL POC Glucose 157 H (70-99) mg/dL Calcium 7.3 L (8.5-10.1) mg/dL Phosphorus 2.5 L (2.6-4.7) mg/dL Magnesium 2.0 (1.8-2.4) mg/dL Total Bilirubin 0.4 (0.2-1.0) mg/dL AST 32 (15-37) IU/L ALT 16 (14-63) IU/L Alkaline Phosphatase 37 L (46-116) U/L Total Protein 6.8 (6.4-8.2) g/dL Albumin 2.5 L (3.4-5.0) g/dL Globulin 4.3 H (2.6-4.0) g/dL Albumin/Globulin Ratio 0.6 L (0.9-1.6) 08/09/21 Range/Units 12:31 WBC (4.0-11.0) K/uL RBC (4.50-5.90) M/uL Hgb (13.0-17.0) g/dL Hct (38.0-50.0) % MCV (80.0-98.0) fL MCH (27.0-32.0) pg MCHC (31.0-37.0) g/dL RDW Std Deviation (28.0-62.0) fl RDW Coeff of Yasmani (11.0-15.0) % Plt Count (150-400) K/uL MPV (7.40-12.00) fL Neut % (Auto) (48.0-80.0) % Lymph % (Auto) (16.0-40.0) % [place] % (Auto) (0.0-15.0) % Eos % (Auto) (0.0-7.0) % Baso % (Auto) (0.0-1.5) % Neut # (Auto) (1.4-5.7) K/uL Lymph # (Auto) (0.6-2.4) K/uL [place] # (Auto) (0.0-0.8) K/uL Eos # (Auto) (0.0-0.7) K/uL Baso # (Auto) (0.0-0.1) K/uL Nucleated RBC % /100WBC Nucleated RBCs # K/uL Sodium (136-148) mmol/L Potassium (3.5-5.1) mmol/L Chloride (98-107) mmol/L Carbon Dioxide (21.0-32.0) mmol/L BUN (7.0-18.0) mg/dL Creatinine (0.8-1.3) mg/dL Est Cr Clr Drug Dosing mL/min Estimated GFR (MDRD) ml/min Glucose (74-106) mg/dL POC Glucose 212 H (70-99) mg/dL Calcium (8.5-10.1) mg/dL Phosphorus (2.6-4.7) mg/dL Magnesium (1.8-2.4) mg/dL Total Bilirubin (0.2-1.0) mg/dL AST (15-37) IU/L ALT (14-63) IU/L Alkaline Phosphatase (46-116) U/L Total Protein (6.4-8.2) g/dL Albumin (3.4-5.0) g/dL Globulin (2.6-4.0) g/dL Albumin/Globulin Ratio (0.9-1.6) Sam Results Last 24 Hours: Microbiology 08/07/21 14:00 Aerobic Blood Culture - Preliminary Blood - Venous - Lab Draw NO GROWTH AFTER 2 DAYS Anaerobic Blood Culture - Preliminary NO GROWTH AFTER 2 DAYS 08/07/21 14:00 Aerobic Blood Culture - Preliminary Blood - Venous NO GROWTH AFTER 2 DAYS Anaerobic Blood Culture - Final Med Orders - Current: Current Medications Acetaminophen (Acetaminophen 325 Mg Tab) 650 mg PO Q4H PRN PRN Reason: Pain (Mild 1-3)/fever Last Admin: 08/09/21 04:44 Dose: 650 mg Documented by: Albuterol/Ipratropium (Albuterol/Ipratropium 3.0-0.5 Mg/3 Ml Neb Soln) 3 ml NEB Q4HRRT PRN PRN Reason: Shortness Of Breath/wheezing Albuterol/Ipratropium (Albuterol/Ipratropium 4 Gm Inhalation [place]) 0 gm INH Q4H [facility] Last Admin: 08/09/21 12:36 Dose: 1 puff Documented by: Dexamethasone (Dexamethasone 4 Mg Tab) 6 mg PO DAILY [facility] Last Admin: 08/09/21 08:34 Dose: 6 mg Documented by: Dextrose/Water (50% Dextrose In Water 50 Ml Syringe) 50 ml IVPUSH ASDIRECTED PRN PRN Reason: Hypoglycemia Enoxaparin Sodium (Enoxaparin 40 Mg/0.4 Ml Syringe) 40 mg SUBCUT Q24H [facility] Last Admin: 08/08/21 17:23 Dose: 40 mg Documented by: Glucagon (Glucagon,Human Recombinant 1 Mg Vial) 1 mg IM ASDIRECTED PRN PRN Reason: Hypoglycemia Guaifenesin/Dextromethorphan (Guaifenesin/Dextromethorphan 100-10 Mg/5 Ml Soln 10 Ml Cup) 10 ml PO Q4H PRN PRN Reason: Cough Last Admin: 08/09/21 09:30 Dose: 10 ml Documented by: Remdesivir 100 mg/ Sodium (Chloride) 100 mls @ 100 mls/hr IV Q24H [facility] Stop: 08/11/21 18:14 Last Admin: 08/08/21 17:31 Dose: 100 mls/hr Documented by: Ceftriaxone Sodium/Dextrose 1 (gm/ Premix) 50 mls @ 100 mls/hr IV Q24H [facility] Last Admin: 08/09/21 08:32 Dose: 100 mls/hr Documented by: Pantoprazole Sodium 40 mg/ (Sodium Chloride) 10 mls @ 200 mls/hr IV Q24H [facility] Last Admin: 08/08/21 17:24 Dose: 200 mls/hr Documented by: Insulin Aspart (Insulin Aspart 100 Units/Ml 3 Ml Pen) 0 unit SUBCUT TIDAC [facility]; Protocol Last Admin: 08/09/21 12:34 Dose: 4 units Documented by: Ondansetron HCl (Ondansetron 4 Mg/2 Ml Sdv) 4 mg IVPUSH Q4H PRN PRN Reason: Nausea/Vomiting Pneumococcal Polyvalent Vaccine (Pneumococcal 23-Valent Conjugate Vaccine 0.5 Ml Syringe) 25 mcg IM .ONCE ONE Stop: 08/13/21 09:01 Discontinued Medications Acetaminophen (Acetaminophen 500 Mg Tab) 1,000 mg PO ONETIME ONE Stop: 08/07/21 14:39 Last Admin: 08/07/21 15:03 Dose: 1,000 mg Documented by: Dexamethasone (Dexamethasone 4 Mg Tab) 6 mg PO ONETIME ONE Stop: 08/07/21 15:13 Last Admin: 08/07/21 15:38 Dose: 6 mg Documented by: Lactated Ringer's (Ringers, Lactated) 1,000 mls @ 999 mls/hr IV ASDIRECTED [facility] Last Admin: 08/07/21 15:04 Dose: 999 mls/hr Documented by: Lactated Ringer's (Ringers, Lactated) 1,000 mls @ 150 mls/hr IV ASDIRECTED [facility] Last Admin: 08/07/21 15:03 Dose: 150 mls/hr Documented by: Remdesivir 200 mg/ Sodium (Chloride) 250 mls @ 250 mls/hr IV ONETIME ONE Stop: 08/07/21 15:04 Last Admin: 08/07/21 16:05 Dose: 250 mls/hr Documented by: Ceftriaxone Sodium/Dextrose 2 (gm/ Premix) 50 mls @ 100 mls/hr IV ONETIME ONE Stop: 08/07/21 16:19 Last Admin: 08/07/21 16:13 Dose: 100 mls/hr Documented by: Influenza Virus Vaccine (Pharmacy To Dose - Influenza Vaccine) 1 each IM ONETIME ONE Stop: 08/07/21 17:14 Influenza Virus Vaccine (Flu Vacc [id number](65up)/Mf59c/Pf 60 Mcg/0.5 Ml Syringe) 60 mcg IM .ONCE ONE Stop: 08/08/21 09:01 Pantoprazole Sodium (Pantoprazole 40 Mg Vial) 40 mg IV Q24H [facility] Last Admin: 08/07/21 19:13 Dose: Not Given Documented by: Pneumococcal Polyvalent Vaccine (Pneumococcal 23-Valent Conjugate Vaccine 0.5 Ml Syringe) 25 mcg IM .ONCE ONE Stop: 08/07/21 17:14 - Exam General: Alert, Oriented Lungs: Normal Respiratory Effort, Rhonchi Cardiovascular: Regular Rate, Regular Rhythm GI/Abdominal Exam: Normal Bowel Sounds, Soft, Non-Tender, No Distention Extremities: Non-Tender, No Pedal Edema Skin: Warm, Dry, Intact - Patient Data Lab Results Last 24 hrs: Laboratory Results - last 24 hr 08/09/21 08/09/21 08/09/21 Range/Units 06:30 06:30 06:32 WBC 9.79 (4.0-11.0) K/uL RBC 4.23 L (4.50-5.90) M/uL Hgb 14.4 (13.0-17.0) g/dL Hct 42.1 (38.0-50.0) % MCV 99.5 H (80.0-98.0) fL MCH 34.0 H (27.0-32.0) pg MCHC 34.2 (31.0-37.0) g/dL RDW Std Deviation 49.4 (28.0-62.0) fl RDW Coeff of Yasmani 14 (11.0-15.0) % Plt Count 150 (150-400) K/uL MPV 10.10 (7.40-12.00) fL Neut % (Auto) 76.2 (48.0-80.0) % Lymph % (Auto) 19.2 (16.0-40.0) % [place] % (Auto) 4.5 (0.0-15.0) % Eos % (Auto) 0.0 (0.0-7.0) % Baso % (Auto) 0.1 (0.0-1.5) % Neut # (Auto) 7.5 H (1.4-5.7) K/uL Lymph # (Auto) 1.9 (0.6-2.4) K/uL [place] # (Auto) 0.4 (0.0-0.8) K/uL Eos # (Auto) 0.0 (0.0-0.7) K/uL Baso # (Auto) 0.0 (0.0-0.1) K/uL Nucleated RBC % 0.0 /100WBC Nucleated RBCs # 0 K/uL Sodium 138 (136-148) mmol/L Potassium 3.4 L (3.5-5.1) mmol/L Chloride 102 (98-107) mmol/L Carbon Dioxide 26.9 (21.0-32.0) mmol/L BUN 17 (7.0-18.0) mg/dL Creatinine 0.8 (0.8-1.3) mg/dL Est Cr Clr Drug Dosing 84.69 mL/min Estimated GFR (MDRD) > 60.0 ml/min Glucose 176 H (74-106) mg/dL POC Glucose 157 H (70-99) mg/dL Calcium 7.3 L (8.5-10.1) mg/dL Phosphorus 2.5 L (2.6-4.7) mg/dL Magnesium 2.0 (1.8-2.4) mg/dL Total Bilirubin 0.4 (0.2-1.0) mg/dL AST 32 (15-37) IU/L ALT 16 (14-63) IU/L Alkaline Phosphatase 37 L (46-116) U/L Total Protein 6.8 (6.4-8.2) g/dL Albumin 2.5 L (3.4-5.0) g/dL Globulin 4.3 H (2.6-4.0) g/dL Albumin/Globulin Ratio 0.6 L (0.9-1.6) 08/09/21 Range/Units 12:31 WBC (4.0-11.0) K/uL RBC (4.50-5.90) M/uL Hgb (13.0-17.0) g/dL Hct (38.0-50.0) % MCV (80.0-98.0) fL MCH (27.0-32.0) pg MCHC (31.0-37.0) g/dL RDW Std Deviation (28.0-62.0) fl RDW Coeff of Yasmani (11.0-15.0) % Plt Count (150-400) K/uL MPV (7.40-12.00) fL Neut % (Auto) (48.0-80.0) % Lymph % (Auto) (16.0-40.0) % [place] % (Auto) (0.0-15.0) % Eos % (Auto) (0.0-7.0) % Baso % (Auto) (0.0-1.5) % Neut # (Auto) (1.4-5.7) K/uL Lymph # (Auto) (0.6-2.4) K/uL [place] # (Auto) (0.0-0.8) K/uL Eos # (Auto) (0.0-0.7) K/uL Baso # (Auto) (0.0-0.1) K/uL Nucleated RBC % /100WBC Nucleated RBCs # K/uL Sodium (136-148) mmol/L Potassium (3.5-5.1) mmol/L Chloride (98-107) mmol/L Carbon Dioxide (21.0-32.0) mmol/L BUN (7.0-18.0) mg/dL Creatinine (0.8-1.3) mg/dL Est Cr Clr Drug Dosing mL/min Estimated GFR (MDRD) ml/min Glucose (74-106) mg/dL POC Glucose 212 H (70-99) mg/dL Calcium (8.5-10.1) mg/dL Phosphorus (2.6-4.7) mg/dL Magnesium (1.8-2.4) mg/dL Total Bilirubin (0.2-1.0) mg/dL AST (15-37) IU/L ALT (14-63) IU/L Alkaline Phosphatase (46-116) U/L Total Protein (6.4-8.2) g/dL Albumin (3.4-5.0) g/dL Globulin (2.6-4.0) g/dL Albumin/Globulin Ratio (0.9-1.6) Result Diagrams: 08/09/21 06:30 08/09/21 06:30 Sam Results Last 24 hrs: Microbiology 08/07/21 14:00 Aerobic Blood Culture - Preliminary Blood - Venous - Lab Draw NO GROWTH AFTER 2 DAYS Anaerobic Blood Culture - Preliminary NO GROWTH AFTER 2 DAYS 08/07/21 14:00 Aerobic Blood Culture - Preliminary Blood - Venous NO GROWTH AFTER 2 DAYS Anaerobic Blood Culture - Final Sepsis Event Note - Evaluation Sepsis Screening Result: No Definite Risk - Focused Exam Vital Signs: Vital Signs Temp Pulse Resp BP Pulse Ox 08/09/21 12:10 90 L 08/09/21 12:05 89 L 08/09/21 12:00 37.6 C 84 19 134/70 88 L 08/09/21 08:00 36.8 C 78 18 122/56 L 93 L 08/09/21 03:25 36.8 C 74 18 131/81 92 L - Problem List Review Problem List Initiated/Reviewed/Updated: Yes - My Orders Last 24 Hours: My Active Orders 08/10/21 05:11 CBC WITH AUTO DIFF [HEME] AM COMPREHENSIVE METABOLIC PN,CMP [CHEM] AM 08/11/21 05:11 CBC WITH AUTO DIFF [HEME] AM COMPREHENSIVE METABOLIC PN,CMP [CHEM] AM 08/12/21 05:11 CBC WITH AUTO DIFF [HEME] AM COMPREHENSIVE METABOLIC PN,CMP [CHEM] AM 08/13/21 05:11 CBC WITH AUTO DIFF [HEME] AM COMPREHENSIVE METABOLIC PN,CMP [CHEM] AM - Plan Plan:: 71 yo male admitted with COVID pnneumonia and hypoxia Hypoxia: on 3 L NC COVID: continue remdesivir, dexamethasone UTI: Rocephin lovenox for DVT prophylaxis Sliding scale insulin for diabetes
[2021-08-09] MEDS: Pantoprazole 40 MG in Sodium Chloride 0.9% 10 ML IV SCH (16:53)
[2021-08-09] MEDS: Enoxaparin 40 MG/0.4 ML Syringe SUBCUT SCH (16:58)
[2021-08-09] MEDS: REMDESIVIR 100 MG in Sodium Chloride 0.9% 100 ML IV SCH (17:02)
[2021-08-10] MEDS: Albuterol/Ipratropium 4 GM Inhalation Spray INH SCH ×6 (01:13→21:57)
[2021-08-10 07:37] LABS: BLOOD UREA NITROGEN,BUN 15 mg/dL (7.0-18.0); CHLORIDE,CL 103 mmol/L (98-107); GLUCOSE RANDOM 184 mg/dL (74-106); POTASSIUM,K 3.6 mmol/L (3.5-5.1); SODIUM,NA 139 mmol/L (136-148)
[2021-08-10] MEDS: Dexamethasone 4 MG Tab PO SCH (08:39)
[2021-08-10] MEDS: Insulin Aspart 100 Units/ML 3 ML Pen SUBCUT SCH ×3 (08:41→17:26)
[2021-08-10] MEDS: cefTRIAXone 1 GM in Premix Bag 1 BAG IV SCH (08:44)
[2021-08-10] MEDS: Acetaminophen 325 MG Tab PO PRN (08:44)
[2021-08-10] MEDS: guaiFENesin/Dextromethorphan 100-10 MG/5 ML Soln 10 ML Cup PO PRN ×2 (08:44→16:50)
--- NOTE | 2021-08-10 12:23 | PCM.PN ---
- General Info Date of Service: 08/10/21 - Review of Systems Systems Review Comment:: feeling a little bit better, does need help with walking - Patient Data Vitals - Most Recent: Last Vital Signs Temp 37.6 C 08/10/21 08:31 Pulse 71 08/10/21 08:31 Resp 18 08/10/21 08:31 BP 111/64 08/10/21 08:31 Pulse Ox 89 L 08/10/21 08:36 Weight - Most Recent: 153.995 kg I&O - Last 24 Hours: Intake & Output 08/09/21 08/10/21 08/10/21 22:59 06:59 14:59 Intake Total 540 600 Output Total 700 850 Balance -160 -250 Lab Results Last 24 Hours: Laboratory Results - last 24 hr 08/09/21 08/09/21 08/10/21 Range/Units 12:31 16:47 06:22 WBC (4.0-11.0) K/uL RBC (4.50-5.90) M/uL Hgb (13.0-17.0) g/dL Hct (38.0-50.0) % MCV (80.0-98.0) fL MCH (27.0-32.0) pg MCHC (31.0-37.0) g/dL RDW Std Deviation (28.0-62.0) fl RDW Coeff of Yasmani (11.0-15.0) % Plt Count (150-400) K/uL MPV (7.40-12.00) fL Neut % (Auto) (48.0-80.0) % Lymph % (Auto) (16.0-40.0) % [place] % (Auto) (0.0-15.0) % Eos % (Auto) (0.0-7.0) % Baso % (Auto) (0.0-1.5) % Neut # (Auto) (1.4-5.7) K/uL Lymph # (Auto) (0.6-2.4) K/uL [place] # (Auto) (0.0-0.8) K/uL Eos # (Auto) (0.0-0.7) K/uL Baso # (Auto) (0.0-0.1) K/uL Nucleated RBC % /100WBC Nucleated RBCs # K/uL Sodium (136-148) mmol/L Potassium (3.5-5.1) mmol/L Chloride (98-107) mmol/L Carbon Dioxide (21.0-32.0) mmol/L BUN (7.0-18.0) mg/dL Creatinine (0.8-1.3) mg/dL Est Cr Clr Drug Dosing mL/min Estimated GFR (MDRD) ml/min Glucose (74-106) mg/dL POC Glucose 212 H 266 H 174 H (70-99) mg/dL Calcium (8.5-10.1) mg/dL Total Bilirubin (0.2-1.0) mg/dL AST (15-37) IU/L ALT (14-63) IU/L Alkaline Phosphatase (46-116) U/L Total Protein (6.4-8.2) g/dL Albumin (3.4-5.0) g/dL Globulin (2.6-4.0) g/dL Albumin/Globulin Ratio (0.9-1.6) 08/10/21 08/10/21 Range/Units 06:30 06:30 WBC 9.22 (4.0-11.0) K/uL RBC 4.12 L (4.50-5.90) M/uL Hgb 13.9 (13.0-17.0) g/dL Hct 41.3 (38.0-50.0) % MCV 100.2 H (80.0-98.0) fL MCH 33.7 H (27.0-32.0) pg MCHC 33.7 (31.0-37.0) g/dL RDW Std Deviation 50.7 (28.0-62.0) fl RDW Coeff of Yasmani 14 (11.0-15.0) % Plt Count 183 (150-400) K/uL MPV 10.00 (7.40-12.00) fL Neut % (Auto) 77.1 (48.0-80.0) % Lymph % (Auto) 16.5 (16.0-40.0) % [place] % (Auto) 6.3 (0.0-15.0) % Eos % (Auto) 0.0 (0.0-7.0) % Baso % (Auto) 0.1 (0.0-1.5) % Neut # (Auto) 7.1 H (1.4-5.7) K/uL Lymph # (Auto) 1.5 (0.6-2.4) K/uL [place] # (Auto) 0.6 (0.0-0.8) K/uL Eos # (Auto) 0.0 (0.0-0.7) K/uL Baso # (Auto) 0.0 (0.0-0.1) K/uL Nucleated RBC % 0.0 /100WBC Nucleated RBCs # 0 K/uL Sodium 139 (136-148) mmol/L Potassium 3.6 (3.5-5.1) mmol/L Chloride 103 (98-107) mmol/L Carbon Dioxide 28.0 (21.0-32.0) mmol/L BUN 15 (7.0-18.0) mg/dL Creatinine 0.9 (0.8-1.3) mg/dL Est Cr Clr Drug Dosing 75.28 mL/min Estimated GFR (MDRD) > 60.0 ml/min Glucose 184 H (74-106) mg/dL POC Glucose (70-99) mg/dL Calcium 7.5 L (8.5-10.1) mg/dL Total Bilirubin 0.5 (0.2-1.0) mg/dL AST 31 (15-37) IU/L ALT 19 (14-63) IU/L Alkaline Phosphatase 37 L (46-116) U/L Total Protein 7.1 (6.4-8.2) g/dL Albumin 2.6 L (3.4-5.0) g/dL Globulin 4.5 H (2.6-4.0) g/dL Albumin/Globulin Ratio 0.6 L (0.9-1.6) Sam Results Last 24 Hours: Microbiology 08/07/21 15:10 Urine Culture - Preliminary Urine Gram Negative Rods 08/07/21 14:00 Aerobic Blood Culture - Preliminary Blood - Venous - Lab Draw NO GROWTH AFTER 2 DAYS Anaerobic Blood Culture - Preliminary NO GROWTH AFTER 2 DAYS 08/07/21 14:00 Aerobic Blood Culture - Preliminary Blood - Venous NO GROWTH AFTER 2 DAYS Anaerobic Blood Culture - Final Med Orders - Current: Current Medications Acetaminophen (Acetaminophen 325 Mg Tab) 650 mg PO Q4H PRN PRN Reason: Pain (Mild 1-3)/fever Last Admin: 08/10/21 08:44 Dose: 650 mg Documented by: Albuterol/Ipratropium (Albuterol/Ipratropium 3.0-0.5 Mg/3 Ml Neb Soln) 3 ml NEB Q4HRRT PRN PRN Reason: Shortness Of Breath/wheezing Albuterol/Ipratropium (Albuterol/Ipratropium 4 Gm Inhalation [place]) 0 gm INH Q4H [facility] Last Admin: 08/10/21 09:28 Dose: 1 puff Documented by: Dexamethasone (Dexamethasone 4 Mg Tab) 6 mg PO DAILY [facility] Last Admin: 08/10/21 08:39 Dose: 6 mg Documented by: Dextrose/Water (50% Dextrose In Water 50 Ml Syringe) 50 ml IVPUSH ASDIRECTED PRN PRN Reason: Hypoglycemia Enoxaparin Sodium (Enoxaparin 40 Mg/0.4 Ml Syringe) 40 mg SUBCUT Q24H [facility] Last Admin: 08/09/21 16:58 Dose: 40 mg Documented by: Glucagon (Glucagon,Human Recombinant 1 Mg Vial) 1 mg IM ASDIRECTED PRN PRN Reason: Hypoglycemia Guaifenesin/Dextromethorphan (Guaifenesin/Dextromethorphan 100-10 Mg/5 Ml Soln 10 Ml Cup) 10 ml PO Q4H PRN PRN Reason: Cough Last Admin: 08/10/21 08:44 Dose: 10 ml Documented by: Remdesivir 100 mg/ Sodium (Chloride) 100 mls @ 100 mls/hr IV Q24H [facility] Stop: 08/11/21 18:14 Last Admin: 08/09/21 17:02 Dose: 100 mls/hr Documented by: Ceftriaxone Sodium/Dextrose 1 (gm/ Premix) 50 mls @ 100 mls/hr IV Q24H [facility] Last Admin: 08/10/21 08:44 Dose: 100 mls/hr Documented by: Pantoprazole Sodium 40 mg/ (Sodium Chloride) 10 mls @ 200 mls/hr IV Q24H [facility] Last Admin: 08/09/21 16:53 Dose: 200 mls/hr Documented by: Insulin Aspart (Insulin Aspart 100 Units/Ml 3 Ml Pen) 0 unit SUBCUT TIDAC [facility]; Protocol Last Admin: 08/10/21 08:41 Dose: 2 units Documented by: Ondansetron HCl (Ondansetron 4 Mg/2 Ml Sdv) 4 mg IVPUSH Q4H PRN PRN Reason: Nausea/Vomiting Pneumococcal Polyvalent Vaccine (Pneumococcal 23-Valent Conjugate Vaccine 0.5 Ml Syringe) 25 mcg IM .ONCE ONE Stop: 08/13/21 09:01 Sodium Chloride (Sodium Chloride 0.65% Nasal [place] 45 Ml Bottle) 1 ml CHARISMA Q6H PRN PRN Reason: Congestion Discontinued Medications Acetaminophen (Acetaminophen 500 Mg Tab) 1,000 mg PO ONETIME ONE Stop: 08/07/21 14:39 Last Admin: 08/07/21 15:03 Dose: 1,000 mg Documented by: Dexamethasone (Dexamethasone 4 Mg Tab) 6 mg PO ONETIME ONE Stop: 08/07/21 15:13 Last Admin: 08/07/21 15:38 Dose: 6 mg Documented by: Lactated Ringer's (Ringers, Lactated) 1,000 mls @ 999 mls/hr IV ASDIRECTED [facility] Last Admin: 08/07/21 15:04 Dose: 999 mls/hr Documented by: Lactated Ringer's (Ringers, Lactated) 1,000 mls @ 150 mls/hr IV ASDIRECTED [facility] Last Admin: 08/07/21 15:03 Dose: 150 mls/hr Documented by: Remdesivir 200 mg/ Sodium (Chloride) 250 mls @ 250 mls/hr IV ONETIME ONE Stop: 08/07/21 15:04 Last Admin: 08/07/21 16:05 Dose: 250 mls/hr Documented by: Ceftriaxone Sodium/Dextrose 2 (gm/ Premix) 50 mls @ 100 mls/hr IV ONETIME ONE Stop: 08/07/21 16:19 Last Admin: 08/07/21 16:13 Dose: 100 mls/hr Documented by: Influenza Virus Vaccine (Pharmacy To Dose - Influenza Vaccine) 1 each IM ONETIME ONE Stop: 08/07/21 17:14 Influenza Virus Vaccine (Flu Vacc Eq9804(65up)/Mf59c/Pf 60 Mcg/0.5 Ml Syringe) 60 mcg IM .ONCE ONE Stop: 08/08/21 09:01 Pantoprazole Sodium (Pantoprazole 40 Mg Vial) 40 mg IV Q24H [facility] Last Admin: 11/07/21 19:13 Dose: Not Given Documented by: Pneumococcal Polyvalent Vaccine (Pneumococcal 23-Valent Conjugate Vaccine 0.5 Ml Syringe) 25 mcg IM .ONCE ONE Stop: 08/07/21 17:14 - Exam General: Alert, Oriented Neck: Supple Lungs: Normal Respiratory Effort, Rhonchi Cardiovascular: Regular Rate, Regular Rhythm GI/Abdominal Exam: Soft, Non-Tender, No Distention Extremities: Non-Tender, No Pedal Edema Skin: Warm, Dry, Intact Neurological: No New Focal Deficit - Patient Data Lab Results Last 24 hrs: Laboratory Results - last 24 hr 08/09/21 08/09/21 08/10/21 Range/Units 12:31 16:47 06:22 WBC (4.0-11.0) K/uL RBC (4.50-5.90) M/uL Hgb (13.0-17.0) g/dL Hct (38.0-50.0) % MCV (80.0-98.0) fL MCH (27.0-32.0) pg MCHC (31.0-37.0) g/dL RDW Std Deviation (28.0-62.0) fl RDW Coeff of Yasmani (11.0-15.0) % Plt Count (150-400) K/uL MPV (7.40-12.00) fL Neut % (Auto) (48.0-80.0) % Lymph % (Auto) (16.0-40.0) % [place] % (Auto) (0.0-15.0) % Eos % (Auto) (0.0-7.0) % Baso % (Auto) (0.0-1.5) % Neut # (Auto) (1.4-5.7) K/uL Lymph # (Auto) (0.6-2.4) K/uL [place] # (Auto) (0.0-0.8) K/uL Eos # (Auto) (0.0-0.7) K/uL Baso # (Auto) (0.0-0.1) K/uL Nucleated RBC % /100WBC Nucleated RBCs # K/uL Sodium (136-148) mmol/L Potassium (3.5-5.1) mmol/L Chloride (98-107) mmol/L Carbon Dioxide (21.0-32.0) mmol/L BUN (7.0-18.0) mg/dL Creatinine (0.8-1.3) mg/dL Est Cr Clr Drug Dosing mL/min Estimated GFR (MDRD) ml/min Glucose (74-106) mg/dL POC Glucose 212 H 266 H 174 H (70-99) mg/dL Calcium (8.5-10.1) mg/dL Total Bilirubin (0.2-1.0) mg/dL AST (15-37) IU/L ALT (14-63) IU/L Alkaline Phosphatase (46-116) U/L Total Protein (6.4-8.2) g/dL Albumin (3.4-5.0) g/dL Globulin (2.6-4.0) g/dL Albumin/Globulin Ratio (0.9-1.6) 08/10/21 08/10/21 Range/Units 06:30 06:30 WBC 9.22 (4.0-11.0) K/uL RBC 4.12 L (4.50-5.90) M/uL Hgb 13.9 (13.0-17.0) g/dL Hct 41.3 (38.0-50.0) % MCV 100.2 H (80.0-98.0) fL MCH 33.7 H (27.0-32.0) pg MCHC 33.7 (31.0-37.0) g/dL RDW Std Deviation 50.7 (28.0-62.0) fl RDW Coeff of Yasmani 14 (11.0-15.0) % Plt Count 183 (150-400) K/uL MPV 10.00 (7.40-12.00) fL Neut % (Auto) 77.1 (48.0-80.0) % Lymph % (Auto) 16.5 (16.0-40.0) % [place] % (Auto) 6.3 (0.0-15.0) % Eos % (Auto) 0.0 (0.0-7.0) % Baso % (Auto) 0.1 (0.0-1.5) % Neut # (Auto) 7.1 H (1.4-5.7) K/uL Lymph # (Auto) 1.5 (0.6-2.4) K/uL [place] # (Auto) 0.6 (0.0-0.8) K/uL Eos # (Auto) 0.0 (0.0-0.7) K/uL Baso # (Auto) 0.0 (0.0-0.1) K/uL Nucleated RBC % 0.0 /100WBC Nucleated RBCs # 0 K/uL Sodium 139 (136-148) mmol/L Potassium 3.6 (3.5-5.1) mmol/L Chloride 103 (98-107) mmol/L Carbon Dioxide 28.0 (21.0-32.0) mmol/L BUN 15 (7.0-18.0) mg/dL Creatinine 0.9 (0.8-1.3) mg/dL Est Cr Clr Drug Dosing 75.28 mL/min Estimated GFR (MDRD) > 60.0 ml/min Glucose 184 H (74-106) mg/dL POC Glucose (70-99) mg/dL Calcium 7.5 L (8.5-10.1) mg/dL Total Bilirubin 0.5 (0.2-1.0) mg/dL AST 31 (15-37) IU/L ALT 19 (14-63) IU/L Alkaline Phosphatase 37 L (46-116) U/L Total Protein 7.1 (6.4-8.2) g/dL Albumin 2.6 L (3.4-5.0) g/dL Globulin 4.5 H (2.6-4.0) g/dL Albumin/Globulin Ratio 0.6 L (0.9-1.6) Result Diagrams: 08/10/21 06:30 08/10/21 06:30 Sam Results Last 24 hrs: Microbiology 08/07/21 15:10 Urine Culture - Preliminary Urine Gram Negative Rods 08/07/21 14:00 Aerobic Blood Culture - Preliminary Blood - Venous - Lab Draw NO GROWTH AFTER 2 DAYS Anaerobic Blood Culture - Preliminary NO GROWTH AFTER 2 DAYS 08/07/21 14:00 Aerobic Blood Culture - Preliminary Blood - Venous NO GROWTH AFTER 2 DAYS Anaerobic Blood Culture - Final Sepsis Event Note - Evaluation Sepsis Screening Result: No Definite Risk - Focused Exam Vital Signs: Vital Signs Temp Pulse Resp BP Pulse Ox 08/10/21 08:36 89 L 08/10/21 08:31 37.6 C 71 18 111/64 88 L 08/10/21 04:55 36.2 C 70 22 H 138/80 93 L - Problem List & Annotations (1) Acute respiratory failure with hypoxia SNOMED Code(s): 38959256, 242355261 Code(s): J96.01 - ACUTE RESPIRATORY FAILURE WITH HYPOXIA Status: Acute Current Visit: Yes (2) COVID-19 SNOMED Code(s): 184638562 Code(s): U07.1 - COVID-19 Status: Acute Current Visit: Yes (3) UTI (urinary tract infection) SNOMED Code(s): 62850104 Code(s): N39.0 - URINARY TRACT INFECTION, SITE NOT SPECIFIED Status: Acute Current Visit: Yes - Problem List Review Problem List Initiated/Reviewed/Updated: Yes - My Orders Last 24 Hours: My Active Orders 08/09/21 17:42 Code Status [Resuscitation Status] Routine 08/10/21 09:28 PT Evaluation and Treatment [CONS] Routine Sodium Chloride 0.65% [[place]ry Nasal [place]] 1 ml CHARISMA Q6H PRN 08/11/21 05:11 CBC WITH AUTO DIFF [HEME] AM COMPREHENSIVE METABOLIC PN,CMP [CHEM] AM 08/12/21 05:11 CBC WITH AUTO DIFF [HEME] AM COMPREHENSIVE METABOLIC PN,CMP [CHEM] AM 08/13/21 05:11 CBC WITH AUTO DIFF [HEME] AM COMPREHENSIVE METABOLIC PN,CMP [CHEM] AM - Plan Plan:: 71 yo male admitted with COVID pnneumonia and hypoxia Hypoxia: on 5 L NC COVID: continue remdesivir, dexamethasone UTI: Rocephin lovenox for DVT prophylaxis Sliding scale insulin for diabetes
[2021-08-10] MEDS: Pantoprazole 40 MG in Sodium Chloride 0.9% 10 ML IV SCH (16:49)
[2021-08-10] MEDS: Enoxaparin 40 MG/0.4 ML Syringe SUBCUT SCH (16:49)
[2021-08-10] MEDS: Sodium Chloride 0.65% Nasal Spray 45 ML Bottle NAS PRN (16:50)
[2021-08-10] MEDS: REMDESIVIR 100 MG in Sodium Chloride 0.9% 100 ML IV SCH (17:25)
[2021-08-11] MEDS: Albuterol/Ipratropium 4 GM Inhalation Spray INH SCH ×6 (00:29→20:25)
[2021-08-11 07:33] LABS: BLOOD UREA NITROGEN,BUN 15 mg/dL (7.0-18.0); CARBON DIOXIDE,CO2 30.6 mmol/L (21.0-32.0); CHLORIDE,CL 102 mmol/L (98-107); GLUCOSE RANDOM 172 mg/dL (74-106); POTASSIUM,K 3.7 mmol/L (3.5-5.1); SODIUM,NA 140 mmol/L (136-148)
[2021-08-11] MEDS: Insulin Aspart 100 Units/ML 3 ML Pen SUBCUT SCH ×3 (09:05→17:33)
[2021-08-11] MEDS: Dexamethasone 4 MG Tab PO SCH (09:06)
[2021-08-11] MEDS: guaiFENesin/Dextromethorphan 100-10 MG/5 ML Soln 10 ML Cup PO PRN ×2 (09:07→17:10)
[2021-08-11] MEDS: Acetaminophen 325 MG Tab PO PRN (09:07)
[2021-08-11] MEDS: cefTRIAXone 1 GM in Premix Bag 1 BAG IV SCH (09:11)
--- NOTE | 2021-08-11 13:27 | PCM.PN ---
- General Info Date of Service: 08/11/21 - Review of Systems Systems Review Comment:: feeling better, shortness of breath and strength improving - Patient Data Vitals - Most Recent: Last Vital Signs Temp 36.5 C 08/11/21 12:00 Pulse 81 08/11/21 12:00 Resp 20 08/11/21 12:00 BP 125/64 08/11/21 12:00 Pulse Ox 90 L 08/11/21 12:00 Weight - Most Recent: 153.995 kg I&O - Last 24 Hours: Intake & Output 08/10/21 08/11/21 08/11/21 22:59 06:59 14:59 Intake Total 1280 600 Output Total 0 700 Balance 1280 -100 Lab Results Last 24 Hours: Laboratory Results - last 24 hr 08/10/21 08/11/21 08/11/21 Range/Units 16:47 06:50 06:50 WBC 10.44 (4.0-11.0) K/uL RBC 4.09 L (4.50-5.90) M/uL Hgb 13.7 (13.0-17.0) g/dL Hct 41.1 (38.0-50.0) % MCV 100.5 H (80.0-98.0) fL MCH 33.5 H (27.0-32.0) pg MCHC 33.3 (31.0-37.0) g/dL RDW Std Deviation 51.3 (28.0-62.0) fl RDW Coeff of Yasmani 14 (11.0-15.0) % Plt Count 179 (150-400) K/uL MPV 9.80 (7.40-12.00) fL Neut % (Auto) 76.7 (48.0-80.0) % Lymph % (Auto) 17.3 (16.0-40.0) % [place] % (Auto) 5.4 (0.0-15.0) % Eos % (Auto) 0.4 (0.0-7.0) % Baso % (Auto) 0.2 (0.0-1.5) % Neut # (Auto) 8.0 H (1.4-5.7) K/uL Lymph # (Auto) 1.8 (0.6-2.4) K/uL [place] # (Auto) 0.6 (0.0-0.8) K/uL Eos # (Auto) 0.0 (0.0-0.7) K/uL Baso # (Auto) 0.0 (0.0-0.1) K/uL Nucleated RBC % 0.0 /100WBC Nucleated RBCs # 0 K/uL Sodium 140 (136-148) mmol/L Potassium 3.7 (3.5-5.1) mmol/L Chloride 102 (98-107) mmol/L Carbon Dioxide 30.6 (21.0-32.0) mmol/L BUN 15 (7.0-18.0) mg/dL Creatinine 0.8 (0.8-1.3) mg/dL Est Cr Clr Drug Dosing 84.69 mL/min Estimated GFR (MDRD) > 60.0 ml/min Glucose 172 H (74-106) mg/dL POC Glucose 286 H (70-99) mg/dL Calcium 7.4 L (8.5-10.1) mg/dL Total Bilirubin 0.5 (0.2-1.0) mg/dL AST 29 (15-37) IU/L ALT 23 (14-63) IU/L Alkaline Phosphatase 34 L (46-116) U/L Total Protein 6.9 (6.4-8.2) g/dL Albumin 2.5 L (3.4-5.0) g/dL Globulin 4.4 H (2.6-4.0) g/dL Albumin/Globulin Ratio 0.6 L (0.9-1.6) 08/11/21 Range/Units 06:50 WBC (4.0-11.0) K/uL RBC (4.50-5.90) M/uL Hgb (13.0-17.0) g/dL Hct (38.0-50.0) % MCV (80.0-98.0) fL MCH (27.0-32.0) pg MCHC (31.0-37.0) g/dL RDW Std Deviation (28.0-62.0) fl RDW Coeff of Yasmani (11.0-15.0) % Plt Count (150-400) K/uL MPV (7.40-12.00) fL Neut % (Auto) (48.0-80.0) % Lymph % (Auto) (16.0-40.0) % [place] % (Auto) (0.0-15.0) % Eos % (Auto) (0.0-7.0) % Baso % (Auto) (0.0-1.5) % Neut # (Auto) (1.4-5.7) K/uL Lymph # (Auto) (0.6-2.4) K/uL [place] # (Auto) (0.0-0.8) K/uL Eos # (Auto) (0.0-0.7) K/uL Baso # (Auto) (0.0-0.1) K/uL Nucleated RBC % /100WBC Nucleated RBCs # K/uL Sodium (136-148) mmol/L Potassium (3.5-5.1) mmol/L Chloride (98-107) mmol/L Carbon Dioxide (21.0-32.0) mmol/L BUN (7.0-18.0) mg/dL Creatinine (0.8-1.3) mg/dL Est Cr Clr Drug Dosing mL/min Estimated GFR (MDRD) ml/min Glucose (74-106) mg/dL POC Glucose 158 H (70-99) mg/dL Calcium (8.5-10.1) mg/dL Total Bilirubin (0.2-1.0) mg/dL AST (15-37) IU/L ALT (14-63) IU/L Alkaline Phosphatase (46-116) U/L Total Protein (6.4-8.2) g/dL Albumin (3.4-5.0) g/dL Globulin (2.6-4.0) g/dL Albumin/Globulin Ratio (0.9-1.6) Sam Results Last 24 Hours: Microbiology 08/07/21 15:10 Urine Culture - Final Urine Klebsiella Pneumoniae 08/07/21 14:00 Aerobic Blood Culture - Preliminary Blood - Venous - Lab Draw NO GROWTH AFTER 3 DAYS Anaerobic Blood Culture - Preliminary NO GROWTH AFTER 3 DAYS 08/07/21 14:00 Aerobic Blood Culture - Preliminary Blood - Venous NO GROWTH AFTER 3 DAYS Anaerobic Blood Culture - Final Med Orders - Current: Current Medications Acetaminophen (Acetaminophen 325 Mg Tab) 650 mg PO Q4H PRN PRN Reason: Pain (Mild 1-3)/fever Last Admin: 08/11/21 09:07 Dose: 650 mg Documented by: Albuterol/Ipratropium (Albuterol/Ipratropium 3.0-0.5 Mg/3 Ml Neb Soln) 3 ml NEB Q4HRRT PRN PRN Reason: Shortness Of Breath/wheezing Albuterol/Ipratropium (Albuterol/Ipratropium 4 Gm Inhalation [place]) 0 gm INH Q4H [facility] Last Admin: 08/11/21 13:19 Dose: 1 puff Documented by: Dexamethasone (Dexamethasone 4 Mg Tab) 6 mg PO DAILY [facility] Last Admin: 08/11/21 09:06 Dose: 6 mg Documented by: Dextrose/Water (50% Dextrose In Water 50 Ml Syringe) 50 ml IVPUSH ASDIRECTED PRN PRN Reason: Hypoglycemia Enoxaparin Sodium (Enoxaparin 40 Mg/0.4 Ml Syringe) 40 mg SUBCUT Q24H [facility] Last Admin: 08/10/21 16:49 Dose: 40 mg Documented by: Glucagon (Glucagon,Human Recombinant 1 Mg Vial) 1 mg IM ASDIRECTED PRN PRN Reason: Hypoglycemia Guaifenesin/Dextromethorphan (Guaifenesin/Dextromethorphan 100-10 Mg/5 Ml Soln 10 Ml Cup) 10 ml PO Q4H PRN PRN Reason: Cough Last Admin: 08/11/21 09:07 Dose: 10 ml Documented by: Remdesivir 100 mg/ Sodium (Chloride) 100 mls @ 100 mls/hr IV Q24H [facility] Stop: 08/11/21 18:14 Last Admin: 08/10/21 17:25 Dose: 100 mls/hr Documented by: Ceftriaxone Sodium/Dextrose 1 (gm/ Premix) 50 mls @ 100 mls/hr IV Q24H [facility] Last Admin: 08/11/21 09:11 Dose: 100 mls/hr Documented by: Pantoprazole Sodium 40 mg/ (Sodium Chloride) 10 mls @ 200 mls/hr IV Q24H [facility] Last Admin: 08/10/21 16:49 Dose: 200 mls/hr Documented by: Insulin Aspart (Insulin Aspart 100 Units/Ml 3 Ml Pen) 0 unit SUBCUT TIDAC [facility]; Protocol Last Admin: 08/11/21 13:19 Dose: 6 units Documented by: Ondansetron HCl (Ondansetron 4 Mg/2 Ml Sdv) 4 mg IVPUSH Q4H PRN PRN Reason: Nausea/Vomiting Pneumococcal Polyvalent Vaccine (Pneumococcal 23-Valent Conjugate Vaccine 0.5 Ml Syringe) 25 mcg IM .ONCE ONE Stop: 08/13/21 09:01 Sodium Chloride (Sodium Chloride 0.65% Nasal [place] 45 Ml Bottle) 1 ml CHARISMA Q6H PRN PRN Reason: Congestion Last Admin: 08/10/21 16:50 Dose: 1 spray Documented by: Discontinued Medications Acetaminophen (Acetaminophen 500 Mg Tab) 1,000 mg PO ONETIME ONE Stop: 08/07/21 14:39 Last Admin: 08/07/21 15:03 Dose: 1,000 mg Documented by: Dexamethasone (Dexamethasone 4 Mg Tab) 6 mg PO ONETIME ONE Stop: 08/07/21 15:13 Last Admin: 08/07/21 15:38 Dose: 6 mg Documented by: Lactated Ringer's (Ringers, Lactated) 1,000 mls @ 999 mls/hr IV ASDIRECTED [facility] Last Admin: 08/07/21 15:04 Dose: 999 mls/hr Documented by: Lactated Ringer's (Ringers, Lactated) 1,000 mls @ 150 mls/hr IV ASDIRECTED [facility] Last Admin: 08/07/21 15:03 Dose: 150 mls/hr Documented by: Remdesivir 200 mg/ Sodium (Chloride) 250 mls @ 250 mls/hr IV ONETIME ONE Stop: 08/07/21 15:04 Last Admin: 08/07/21 16:05 Dose: 250 mls/hr Documented by: Ceftriaxone Sodium/Dextrose 2 (gm/ Premix) 50 mls @ 100 mls/hr IV ONETIME ONE Stop: 08/07/21 16:19 Last Admin: 08/07/21 16:13 Dose: 100 mls/hr Documented by: Influenza Virus Vaccine (Pharmacy To Dose - Influenza Vaccine) 1 each IM ONETIME ONE Stop: 08/07/21 17:14 Influenza Virus Vaccine (Flu Vacc Oi5534(65up)/Mf59c/Pf 60 Mcg/0.5 Ml Syringe) 60 mcg IM .ONCE ONE Stop: 08/08/21 09:01 Pantoprazole Sodium (Pantoprazole 40 Mg Vial) 40 mg IV Q24H [facility] Last Admin: 08/07/21 19:13 Dose: Not Given Documented by: Pneumococcal Polyvalent Vaccine (Pneumococcal 23-Valent Conjugate Vaccine 0.5 Ml Syringe) 25 mcg IM .ONCE ONE Stop: 08/07/21 17:14 - Exam General: Alert, Oriented Neck: Supple Lungs: Clear to Auscultation, Normal Respiratory Effort Cardiovascular: Regular Rate, Regular Rhythm GI/Abdominal Exam: Normal Bowel Sounds, Soft, Non-Tender Extremities: Non-Tender, No Pedal Edema Skin: Warm, Dry, Intact Neurological: No New Focal Deficit - Patient Data Lab Results Last 24 hrs: Laboratory Results - last 24 hr 08/10/21 08/11/21 08/11/21 Range/Units 16:47 06:50 06:50 WBC 10.44 (4.0-11.0) K/uL RBC 4.09 L (4.50-5.90) M/uL Hgb 13.7 (13.0-17.0) g/dL Hct 41.1 (38.0-50.0) % MCV 100.5 H (80.0-98.0) fL MCH 33.5 H (27.0-32.0) pg MCHC 33.3 (31.0-37.0) g/dL RDW Std Deviation 51.3 (28.0-62.0) fl RDW Coeff of Yasmani 14 (11.0-15.0) % Plt Count 179 (150-400) K/uL MPV 9.80 (7.40-12.00) fL Neut % (Auto) 76.7 (48.0-80.0) % Lymph % (Auto) 17.3 (16.0-40.0) % [place] % (Auto) 5.4 (0.0-15.0) % Eos % (Auto) 0.4 (0.0-7.0) % Baso % (Auto) 0.2 (0.0-1.5) % Neut # (Auto) 8.0 H (1.4-5.7) K/uL Lymph # (Auto) 1.8 (0.6-2.4) K/uL [place] # (Auto) 0.6 (0.0-0.8) K/uL Eos # (Auto) 0.0 (0.0-0.7) K/uL Baso # (Auto) 0.0 (0.0-0.1) K/uL Nucleated RBC % 0.0 /100WBC Nucleated RBCs # 0 K/uL Sodium 140 (136-148) mmol/L Potassium 3.7 (3.5-5.1) mmol/L Chloride 102 (98-107) mmol/L Carbon Dioxide 30.6 (21.0-32.0) mmol/L BUN 15 (7.0-18.0) mg/dL Creatinine 0.8 (0.8-1.3) mg/dL Est Cr Clr Drug Dosing 84.69 mL/min Estimated GFR (MDRD) > 60.0 ml/min Glucose 172 H (74-106) mg/dL POC Glucose 286 H (70-99) mg/dL Calcium 7.4 L (8.5-10.1) mg/dL Total Bilirubin 0.5 (0.2-1.0) mg/dL AST 29 (15-37) IU/L ALT 23 (14-63) IU/L Alkaline Phosphatase 34 L (46-116) U/L Total Protein 6.9 (6.4-8.2) g/dL Albumin 2.5 L (3.4-5.0) g/dL Globulin 4.4 H (2.6-4.0) g/dL Albumin/Globulin Ratio 0.6 L (0.9-1.6) 08/11/21 Range/Units 06:50 WBC (4.0-11.0) K/uL RBC (4.50-5.90) M/uL Hgb (13.0-17.0) g/dL Hct (38.0-50.0) % MCV (80.0-98.0) fL MCH (27.0-32.0) pg MCHC (31.0-37.0) g/dL RDW Std Deviation (28.0-62.0) fl RDW Coeff of Yasmani (11.0-15.0) % Plt Count (150-400) K/uL MPV (7.40-12.00) fL Neut % (Auto) (48.0-80.0) % Lymph % (Auto) (16.0-40.0) % [place] % (Auto) (0.0-15.0) % Eos % (Auto) (0.0-7.0) % Baso % (Auto) (0.0-1.5) % Neut # (Auto) (1.4-5.7) K/uL Lymph # (Auto) (0.6-2.4) K/uL [place] # (Auto) (0.0-0.8) K/uL Eos # (Auto) (0.0-0.7) K/uL Baso # (Auto) (0.0-0.1) K/uL Nucleated RBC % /100WBC Nucleated RBCs # K/uL Sodium (136-148) mmol/L Potassium (3.5-5.1) mmol/L Chloride (98-107) mmol/L Carbon Dioxide (21.0-32.0) mmol/L BUN (7.0-18.0) mg/dL Creatinine (0.8-1.3) mg/dL Est Cr Clr Drug Dosing mL/min Estimated GFR (MDRD) ml/min Glucose (74-106) mg/dL POC Glucose 158 H (70-99) mg/dL Calcium (8.5-10.1) mg/dL Total Bilirubin (0.2-1.0) mg/dL AST (15-37) IU/L ALT (14-63) IU/L Alkaline Phosphatase (46-116) U/L Total Protein (6.4-8.2) g/dL Albumin (3.4-5.0) g/dL Globulin (2.6-4.0) g/dL Albumin/Globulin Ratio (0.9-1.6) Result Diagrams: 08/11/21 06:50 08/11/21 06:50 Sam Results Last 24 hrs: Microbiology 08/07/21 15:10 Urine Culture - Final Urine Klebsiella Pneumoniae 08/07/21 14:00 Aerobic Blood Culture - Preliminary Blood - Venous - Lab Draw NO GROWTH AFTER 3 DAYS Anaerobic Blood Culture - Preliminary NO GROWTH AFTER 3 DAYS 08/07/21 14:00 Aerobic Blood Culture - Preliminary Blood - Venous NO GROWTH AFTER 3 DAYS Anaerobic Blood Culture - Final Sepsis Event Note - Evaluation Sepsis Screening Result: No Definite Risk - Focused Exam Vital Signs: Vital Signs Temp Pulse Resp BP Pulse Ox Pulse Ox 08/11/21 12:00 36.5 C 81 20 125/64 90 L 08/11/21 08:00 37.4 C 84 22 H 140/68 91 L 08/11/21 07:00 90 L 08/11/21 04:00 37.1 C 84 20 134/68 90 L - Problem List & Annotations (1) Acute respiratory failure with hypoxia SNOMED Code(s): 10965080, 844041402 Code(s): J96.01 - ACUTE RESPIRATORY FAILURE WITH HYPOXIA Status: Acute Current Visit: Yes (2) COVID-19 SNOMED Code(s): 770968032 Code(s): U07.1 - COVID-19 Status: Acute Current Visit: Yes (3) UTI (urinary tract infection) SNOMED Code(s): 81497737 Code(s): N39.0 - URINARY TRACT INFECTION, SITE NOT SPECIFIED Status: Acute Current Visit: Yes - Problem List Review Problem List Initiated/Reviewed/Updated: Yes - My Orders Last 24 Hours: My Active Orders 08/10/21 12:29 Communication Order [RC] PER UNIT ROUTINE 08/12/21 05:11 CBC WITH AUTO DIFF [HEME] AM COMPREHENSIVE METABOLIC PN,CMP [CHEM] AM 08/13/21 05:11 CBC WITH AUTO DIFF [HEME] AM COMPREHENSIVE METABOLIC PN,CMP [CHEM] AM - Plan Plan:: 71 yo male admitted with COVID pnneumonia and hypoxia Hypoxia: on 10 L NC, O2 demand increased but symptoms improving, will repeat CXR COVID: continue remdesivir, dexamethasone UTI: Rocephin lovenox for DVT prophylaxis Sliding scale insulin for diabetes
--- NOTE | 2021-08-11 14:16 | CR ---
Indication: Hypoxia, history of sharif virus Comparison: Single view chest August 07, 2021 Technique: Single AP view chest Findings: There is hyperinflation and chronic interstitial change. There are overall significantly increased interstitial, ground-glass and airspace opacities of the bilateral hemithoraces likely representing multifocal infiltrates. The cardiac silhouette is stably prominent. The bony thorax is grossly intact. Impression: Overall markedly increased interstitial, ground-glass and airspace opacities commensurate with worsening sharif virus pneumonia. Dictated by Byron Cho MD @ 08/11/2021 2:15:15 PM (Electronically Signed)
[2021-08-11] MEDS: Pantoprazole 40 MG in Sodium Chloride 0.9% 10 ML IV SCH (17:10)
[2021-08-11] MEDS: Enoxaparin 40 MG/0.4 ML Syringe SUBCUT SCH (17:10)
[2021-08-11] MEDS: REMDESIVIR 100 MG in Sodium Chloride 0.9% 100 ML IV SCH (17:22)
[2021-08-11] MEDS: Sodium Chloride 0.65% Nasal Spray 45 ML Bottle NAS PRN (20:24)
[2021-08-12] MEDS: Albuterol/Ipratropium 4 GM Inhalation Spray INH SCH ×4 (00:36→15:58)
[2021-08-12] MEDS: Acetaminophen 325 MG Tab PO PRN (00:51)
[2021-08-12 06:59] LABS: BLOOD UREA NITROGEN,BUN 11 mg/dL (7.0-18.0); CARBON DIOXIDE,CO2 30.6 mmol/L (21.0-32.0); CHLORIDE,CL 102 mmol/L (98-107); GLUCOSE RANDOM 154 mg/dL (74-106); POTASSIUM,K 3.7 mmol/L (3.5-5.1); SODIUM,NA 139 mmol/L (136-148)
[2021-08-12] MEDS: Insulin Aspart 100 Units/ML 3 ML Pen SUBCUT SCH ×2 (07:36→12:29)
[2021-08-12] MEDS: Dexamethasone 4 MG Tab PO SCH (08:08)
[2021-08-12] MEDS: cefTRIAXone 1 GM in Premix Bag 1 BAG IV SCH (08:09)
--- NOTE | 2021-08-12 09:00 | PCM.PN ---
- General Info Date of Service: 08/12/21 - Review of Systems Systems Review Comment:: shortness of breath stable, no changes in symptoms, no cough, no fever - Patient Data Vitals - Most Recent: Last Vital Signs Temp 36.8 C 08/12/21 08:20 Pulse 82 08/12/21 08:20 Resp 24 H 08/12/21 08:20 BP 142/65 H 08/12/21 08:20 Pulse Ox 87 L 08/12/21 08:20 Weight - Most Recent: 153.995 kg I&O - Last 24 Hours: Intake & Output 08/11/21 08/12/21 08/12/21 22:59 06:59 14:59 Intake Total 1020 1420 Output Total 750 220 Balance 270 1200 Lab Results Last 24 Hours: Laboratory Results - last 24 hr 08/11/21 08/11/21 08/12/21 Range/Units 13:18 17:32 06:15 WBC 10.48 (4.0-11.0) K/uL RBC 4.06 L (4.50-5.90) M/uL Hgb 13.6 (13.0-17.0) g/dL Hct 40.9 (38.0-50.0) % MCV 100.7 H (80.0-98.0) fL MCH 33.5 H (27.0-32.0) pg MCHC 33.3 (31.0-37.0) g/dL RDW Std Deviation 50.0 (28.0-62.0) fl RDW Coeff of Yasmani 14 (11.0-15.0) % Plt Count 215 (150-400) K/uL MPV 9.60 (7.40-12.00) fL Add Manual Diff YES Neutrophils % (Manual) 84 H (48.0-80.0) % Band Neutrophils % 2 % Lymphocytes % (Manual) 10 L (16.0-40.0) % Monocytes % (Manual) 4 (0.0-15.0) % Nucleated RBC % 0.0 /100WBC Absolute Seg Neuts 8.8 H (1.4-5.7) Band Neutrophils # 0.2 Lymphocytes # (Manual) 1.0 (0.6-2.4) Monocytes # (Manual) 0.4 (0.0-0.8) Nucleated RBCs # 0 K/uL Sodium (136-148) mmol/L Potassium (3.5-5.1) mmol/L Chloride (98-107) mmol/L Carbon Dioxide (21.0-32.0) mmol/L BUN (7.0-18.0) mg/dL Creatinine (0.8-1.3) mg/dL Est Cr Clr Drug Dosing mL/min Estimated GFR (MDRD) ml/min Glucose (74-106) mg/dL POC Glucose 297 H 274 H (70-99) mg/dL Calcium (8.5-10.1) mg/dL Total Bilirubin (0.2-1.0) mg/dL AST (15-37) IU/L ALT (14-63) IU/L Alkaline Phosphatase (46-116) U/L Total Protein (6.4-8.2) g/dL Albumin (3.4-5.0) g/dL Globulin (2.6-4.0) g/dL Albumin/Globulin Ratio (0.9-1.6) 08/12/21 08/12/21 Range/Units 06:15 06:48 WBC (4.0-11.0) K/uL RBC (4.50-5.90) M/uL Hgb (13.0-17.0) g/dL Hct (38.0-50.0) % MCV (80.0-98.0) fL MCH (27.0-32.0) pg MCHC (31.0-37.0) g/dL RDW Std Deviation (28.0-62.0) fl RDW Coeff of Yasmani (11.0-15.0) % Plt Count (150-400) K/uL MPV (7.40-12.00) fL Add Manual Diff Neutrophils % (Manual) (48.0-80.0) % Band Neutrophils % % Lymphocytes % (Manual) (16.0-40.0) % Monocytes % (Manual) (0.0-15.0) % Nucleated RBC % /100WBC Absolute Seg Neuts (1.4-5.7) Band Neutrophils # Lymphocytes # (Manual) (0.6-2.4) Monocytes # (Manual) (0.0-0.8) Nucleated RBCs # K/uL Sodium 139 (136-148) mmol/L Potassium 3.7 (3.5-5.1) mmol/L Chloride 102 (98-107) mmol/L Carbon Dioxide 30.6 (21.0-32.0) mmol/L BUN 11 (7.0-18.0) mg/dL Creatinine 0.8 (0.8-1.3) mg/dL Est Cr Clr Drug Dosing 84.69 mL/min Estimated GFR (MDRD) > 60.0 ml/min Glucose 154 H (74-106) mg/dL POC Glucose 148 H (70-99) mg/dL Calcium 7.2 L (8.5-10.1) mg/dL Total Bilirubin 0.6 (0.2-1.0) mg/dL AST 29 (15-37) IU/L ALT 23 (14-63) IU/L Alkaline Phosphatase 38 L (46-116) U/L Total Protein 6.8 (6.4-8.2) g/dL Albumin 2.3 L (3.4-5.0) g/dL Globulin 4.5 H (2.6-4.0) g/dL Albumin/Globulin Ratio 0.5 L (0.9-1.6) Sam Results Last 24 Hours: Microbiology 08/07/21 14:00 Aerobic Blood Culture - Preliminary Blood - Venous - Lab Draw NO GROWTH AFTER 4 DAYS Anaerobic Blood Culture - Preliminary NO GROWTH AFTER 4 DAYS 08/07/21 14:00 Aerobic Blood Culture - Preliminary Blood - Venous NO GROWTH AFTER 4 DAYS Anaerobic Blood Culture - Final 08/07/21 15:10 Urine Culture - Final Urine Klebsiella Pneumoniae Med Orders - Current: Current Medications Acetaminophen (Acetaminophen 325 Mg Tab) 650 mg PO Q4H PRN PRN Reason: Pain (Mild 1-3)/fever Last Admin: 08/12/21 00:51 Dose: 650 mg Documented by: Albuterol/Ipratropium (Albuterol/Ipratropium 3.0-0.5 Mg/3 Ml Neb Soln) 3 ml NEB Q4HRRT PRN PRN Reason: Shortness Of Breath/wheezing Albuterol/Ipratropium (Albuterol/Ipratropium 4 Gm Inhalation [place]) 0 gm INH Q4H VÍCTOR Last Admin: 08/12/21 08:27 Dose: 1 puff Documented by: Dexamethasone (Dexamethasone 4 Mg Tab) 6 mg PO DAILY [facility] Last Admin: 08/12/21 08:08 Dose: 6 mg Documented by: Dextrose/Water (50% Dextrose In Water 50 Ml Syringe) 50 ml IVPUSH ASDIRECTED PRN PRN Reason: Hypoglycemia Enoxaparin Sodium (Enoxaparin 40 Mg/0.4 Ml Syringe) 40 mg SUBCUT Q24H [facility] Last Admin: 08/11/21 17:10 Dose: 40 mg Documented by: Glucagon (Glucagon,Human Recombinant 1 Mg Vial) 1 mg IM ASDIRECTED PRN PRN Reason: Hypoglycemia Guaifenesin/Dextromethorphan (Guaifenesin/Dextromethorphan 100-10 Mg/5 Ml Soln 10 Ml Cup) 10 ml PO Q4H PRN PRN Reason: Cough Last Admin: 08/11/21 17:10 Dose: 10 ml Documented by: Ceftriaxone Sodium/Dextrose 1 (gm/ Premix) 50 mls @ 100 mls/hr IV Q24H [facility] Last Admin: 08/12/21 08:09 Dose: 100 mls/hr Documented by: Pantoprazole Sodium 40 mg/ (Sodium Chloride) 10 mls @ 200 mls/hr IV Q24H [facility] Last Admin: 08/11/21 17:10 Dose: 200 mls/hr Documented by: Insulin Aspart (Insulin Aspart 100 Units/Ml 3 Ml Pen) 0 unit SUBCUT TIDAC [facility]; Protocol Last Admin: 08/12/21 07:36 Dose: Not Given Documented by: Ondansetron HCl (Ondansetron 4 Mg/2 Ml Sdv) 4 mg IVPUSH Q4H PRN PRN Reason: Nausea/Vomiting Pneumococcal Polyvalent Vaccine (Pneumococcal 23-Valent Conjugate Vaccine 0.5 Ml Syringe) 25 mcg IM .ONCE ONE Stop: 08/13/21 09:01 Sodium Chloride (Sodium Chloride 0.65% Nasal [place] 45 Ml Bottle) 1 ml CHARISMA Q6H PRN PRN Reason: Congestion Last Admin: 08/11/21 20:24 Dose: 1 spray Documented by: Discontinued Medications Acetaminophen (Acetaminophen 500 Mg Tab) 1,000 mg PO ONETIME ONE Stop: 08/07/21 14:39 Last Admin: 08/07/21 15:03 Dose: 1,000 mg Documented by: Dexamethasone (Dexamethasone 4 Mg Tab) 6 mg PO ONETIME ONE Stop: 08/07/21 15:13 Last Admin: 08/07/21 15:38 Dose: 6 mg Documented by: Lactated Ringer's (Ringers, Lactated) 1,000 mls @ 999 mls/hr IV ASDIRECTED [facility] Last Admin: 08/07/21 15:04 Dose: 999 mls/hr Documented by: Lactated Ringer's (Ringers, Lactated) 1,000 mls @ 150 mls/hr IV ASDIRECTED [facility] Last Admin: 08/07/21 15:03 Dose: 150 mls/hr Documented by: Remdesivir 200 mg/ Sodium (Chloride) 250 mls @ 250 mls/hr IV ONETIME ONE Stop: 08/07/21 15:04 Last Admin: 08/07/21 16:05 Dose: 250 mls/hr Documented by: Ceftriaxone Sodium/Dextrose 2 (gm/ Premix) 50 mls @ 100 mls/hr IV ONETIME ONE Stop: 08/07/21 16:19 Last Admin: 08/07/21 16:13 Dose: 100 mls/hr Documented by: Remdesivir 100 mg/ Sodium (Chloride) 100 mls @ 100 mls/hr IV Q24H [facility] Stop: 08/11/21 18:14 Last Admin: 08/11/21 17:22 Dose: 100 mls/hr Documented by: Influenza Virus Vaccine (Pharmacy To Dose - Influenza Vaccine) 1 each IM ONETIME ONE Stop: 08/07/21 17:14 Influenza Virus Vaccine (Flu Vacc Sp1590(65up)/Mf59c/Pf 60 Mcg/0.5 Ml Syringe) 60 mcg IM .ONCE ONE Stop: 08/08/21 09:01 Pantoprazole Sodium (Pantoprazole 40 Mg Vial) 40 mg IV Q24H [facility] Last Admin: 08/07/21 19:13 Dose: Not Given Documented by: Pneumococcal Polyvalent Vaccine (Pneumococcal 23-Valent Conjugate Vaccine 0.5 Ml Syringe) 25 mcg IM .ONCE ONE Stop: 08/07/21 17:14 - Exam General: Alert, Oriented Neck: Supple Lungs: Clear to Auscultation, Normal Respiratory Effort Cardiovascular: Regular Rate, Regular Rhythm GI/Abdominal Exam: Soft, Non-Tender, No Distention Extremities: Non-Tender, No Pedal Edema Skin: Warm, Dry, Intact Neurological: No New Focal Deficit - Patient Data Lab Results Last 24 hrs: Laboratory Results - last 24 hr 08/11/21 08/11/21 08/12/21 Range/Units 13:18 17:32 06:15 WBC 10.48 (4.0-11.0) K/uL RBC 4.06 L (4.50-5.90) M/uL Hgb 13.6 (13.0-17.0) g/dL Hct 40.9 (38.0-50.0) % MCV 100.7 H (80.0-98.0) fL MCH 33.5 H (27.0-32.0) pg MCHC 33.3 (31.0-37.0) g/dL RDW Std Deviation 50.0 (28.0-62.0) fl RDW Coeff of Yasmani 14 (11.0-15.0) % Plt Count 215 (150-400) K/uL MPV 9.60 (7.40-12.00) fL Add Manual Diff YES Neutrophils % (Manual) 84 H (48.0-80.0) % Band Neutrophils % 2 % Lymphocytes % (Manual) 10 L (16.0-40.0) % Monocytes % (Manual) 4 (0.0-15.0) % Nucleated RBC % 0.0 /100WBC Absolute Seg Neuts 8.8 H (1.4-5.7) Band Neutrophils # 0.2 Lymphocytes # (Manual) 1.0 (0.6-2.4) Monocytes # (Manual) 0.4 (0.0-0.8) Nucleated RBCs # 0 K/uL Sodium (136-148) mmol/L Potassium (3.5-5.1) mmol/L Chloride (98-107) mmol/L Carbon Dioxide (21.0-32.0) mmol/L BUN (7.0-18.0) mg/dL Creatinine (0.8-1.3) mg/dL Est Cr Clr Drug Dosing mL/min Estimated GFR (MDRD) ml/min Glucose (74-106) mg/dL POC Glucose 297 H 274 H (70-99) mg/dL Calcium (8.5-10.1) mg/dL Total Bilirubin (0.2-1.0) mg/dL AST (15-37) IU/L ALT (14-63) IU/L Alkaline Phosphatase (46-116) U/L Total Protein (6.4-8.2) g/dL Albumin (3.4-5.0) g/dL Globulin (2.6-4.0) g/dL Albumin/Globulin Ratio (0.9-1.6) 08/12/21 08/12/21 Range/Units 06:15 06:48 WBC (4.0-11.0) K/uL RBC (4.50-5.90) M/uL Hgb (13.0-17.0) g/dL Hct (38.0-50.0) % MCV (80.0-98.0) fL MCH (27.0-32.0) pg MCHC (31.0-37.0) g/dL RDW Std Deviation (28.0-62.0) fl RDW Coeff of Yasmani (11.0-15.0) % Plt Count (150-400) K/uL MPV (7.40-12.00) fL Add Manual Diff Neutrophils % (Manual) (48.0-80.0) % Band Neutrophils % % Lymphocytes % (Manual) (16.0-40.0) % Monocytes % (Manual) (0.0-15.0) % Nucleated RBC % /100WBC Absolute Seg Neuts (1.4-5.7) Band Neutrophils # Lymphocytes # (Manual) (0.6-2.4) Monocytes # (Manual) (0.0-0.8) Nucleated RBCs # K/uL Sodium 139 (136-148) mmol/L Potassium 3.7 (3.5-5.1) mmol/L Chloride 102 (98-107) mmol/L Carbon Dioxide 30.6 (21.0-32.0) mmol/L BUN 11 (7.0-18.0) mg/dL Creatinine 0.8 (0.8-1.3) mg/dL Est Cr Clr Drug Dosing 84.69 mL/min Estimated GFR (MDRD) > 60.0 ml/min Glucose 154 H (74-106) mg/dL POC Glucose 148 H (70-99) mg/dL Calcium 7.2 L (8.5-10.1) mg/dL Total Bilirubin 0.6 (0.2-1.0) mg/dL AST 29 (15-37) IU/L ALT 23 (14-63) IU/L Alkaline Phosphatase 38 L (46-116) U/L Total Protein 6.8 (6.4-8.2) g/dL Albumin 2.3 L (3.4-5.0) g/dL Globulin 4.5 H (2.6-4.0) g/dL Albumin/Globulin Ratio 0.5 L (0.9-1.6) Result Diagrams: 08/12/21 06:15 08/12/21 06:15 Sam Results Last 24 hrs: Microbiology 08/07/21 14:00 Aerobic Blood Culture - Preliminary Blood - Venous - Lab Draw NO GROWTH AFTER 4 DAYS Anaerobic Blood Culture - Preliminary NO GROWTH AFTER 4 DAYS 08/07/21 14:00 Aerobic Blood Culture - Preliminary Blood - Venous NO GROWTH AFTER 4 DAYS Anaerobic Blood Culture - Final 08/07/21 15:10 Urine Culture - Final Urine Klebsiella Pneumoniae Sepsis Event Note - Evaluation Sepsis Screening Result: No Definite Risk - Focused Exam Vital Signs: Vital Signs Temp Pulse Resp BP Pulse Ox 08/12/21 08:20 36.8 C 82 24 H 142/65 H 87 L 08/12/21 04:16 36.9 C 75 22 H 138/69 90 L 08/11/21 23:00 36.2 C 72 22 H 102/55 L 90 L - Problem List & Annotations (1) Acute respiratory failure with hypoxia SNOMED Code(s): 05858713, 685686901 Code(s): J96.01 - ACUTE RESPIRATORY FAILURE WITH HYPOXIA Status: Acute Current Visit: Yes (2) COVID-19 SNOMED Code(s): 987029141 Code(s): U07.1 - COVID-19 Status: Acute Current Visit: Yes (3) UTI (urinary tract infection) SNOMED Code(s): 12499961 Code(s): N39.0 - URINARY TRACT INFECTION, SITE NOT SPECIFIED Status: Acute Current Visit: Yes - Problem List Review Problem List Initiated/Reviewed/Updated: Yes - My Orders Last 24 Hours: My Active Orders 08/12/21 08:53 PE Chest [Ang Chest] [CT] Routine 08/13/21 05:11 CBC WITH AUTO DIFF [HEME] AM COMPREHENSIVE METABOLIC PN,CMP [CHEM] AM - Plan Plan:: 71 yo male admitted with COVID pnneumonia and hypoxia Hypoxia: on heated high flow. Will check CT of chest due to incrasing O2 demand COVID: continue remdesivir, dexamethasone UTI: Rocephin lovenox for DVT prophylaxis Sliding scale insulin for diabetes
[2021-08-12] MEDS ORDERED: Lidocaine 2% 5 ML SDV ONE (18:02)
--- NOTE | 2021-08-12 18:02 | PN ---
THC Physician - Brief Progress [id number]/12/2021 17:52[facility] Max valentine, MEENAKSHI - MAYANKN (SCHUYLER) - MAYANKN BILLY FOSTERDate of Service 08/12/2021 17:52HPI/Even ts of Note eICU Admission NotePatient is a 71-year-old male past medical history significant for morb id obesity, diabetes, hyperlipidemia. Presented with 1 week duration of cold-like symptoms. Admitted on the seventh for Covid pneumonia and hypoxemia. Patient is unvaccinated. Patient also has concurren t UTI, urine culture with marquis susceptible Klebsiella. Initially required 2 L nasal cannula however si nce progressed, requiring heated high flow nasal cannulaOn cameraxthe patient is laying in bed, appea rs to be no distress and he denies nasal cannulaReviewedVitalsEMR notesLabsAbove imagingAbdominal daniel roMedicationseICU impressionsAcute hypoxemic respiratory failureSevere COVID-19 pneumoniaUTIDiabetesG I measureseICU Recommendations:Continue supplemental oxygen via heated high flow nasal cannula and/or noninvasive ventilation as needed to maintain saturation of 90 to 94%Self proning as toleratedMainta in euvolemia to net negative volume statusComplete course of systemic steroidsPending CT PE studyNot candidate for anti-IL-6 immunomodulators given active infectionCompleting Course of ceftriaxone for K lebsiella UTIVTE prophylaxis noted with LovenoxGI prophylaxis noted with PPIGlycemic control per prot ocol, blood glucose target between one 40-1 80Thank you for allowing us to participate in the care of your patient. Critical care; 25 minutes total evaluation time Interventions Major-Hypoxemia - evalua tion and management, Infection - evaluation and management, Respiratory failure - evaluation and parish gement
--- NOTE | 2021-08-12 18:52 | PN ---
THC Physician - Brief Progress [id number]/12/2021 18:50[facility] Max valentine [place] - PAUL (SCHUYLER) - BILLY WHITEDate of Service 08/12/2021 18:50HPI/Even ts of Note Precedex ordered to anxiety to better tolerate BiPAPFoley catheter ordered given incontine nece and inability to tolerate changes/cleaning - no condom catheter available at facilityInterventio ns Minor-Agitation/anxiety - evaluation and management, Routine modifications to care plan (e.g. PRN medications for pain, fever)
[2021-08-12] MEDS ORDERED: NACL IV SCH (19:00)
[2021-08-12] MEDS ORDERED: DEXMEDETOMIDINE IV SCH (19:00)
[2021-08-12] MEDS ORDERED: propofoL 100 ML ONE (19:45)
[2021-08-12] MEDS ORDERED: Sodium Chloride 0.9% 1,000 ML IV SCH (19:45)
[2021-08-12] MEDS ORDERED: fentaNYL/Normal Saline 2,500 MCG in Premix Bag 1 BAG IV SCH (19:45)
[2021-08-12] MEDS ORDERED: fentaNYL/Normal Saline 250 ML ONE (19:57)
--- NOTE | 2021-08-12 20:53 | PN ---
THC Physician - Brief Progress GfabWNVUHGPJV77/12/2021 20:10[facility] MEENAKSHI - PAUL (SCHUYLER) - BILLY WHITEDate of Service 08/12/2021 20:10HPI/Even ts of Note eICU Progress NotePatient with refractory hypoxia on BiPAP.- Proceed with invasive mechani zayda ventillation- Orders placed- Follow up post intubation ABG- Will require CVC and arterial line fo r potential proningThank you for allowing us to participate in the care of your patient. Critical car e; 20 minutes total evaluation time Interventions Major-Hypoxemia - evaluation and management, Respir atory failure - evaluation and management 20 :13
--- NOTE | 2021-08-12 21:49 | PCM.SN.2 ---
Time Documentation - Time Based Documentation Total Time Spent on the Date of the Encounter (Minutes): 60 Arterial Line Insertion - Arterial Line Insertion Arterial Line Indication: hemodynamic monitoring Site: radial (R) Allens test: negative Prep: CDC/MBT Guidelines, Sterile Drapes, Chlorhexidine Gauge: 20Fr Local Anesthesia - Lidocaine (Xylocaine): 1% Plain Local Anesthetic Volume: 1cc Ultrasound guided: No Secured with suture: No Dressing applied: by provider Complications: none Arterial line comment: Right radial art line using seldinger technique. No complications.
--- NOTE | 2021-08-12 21:51 | PCM.SN.2 ---
Central Line - Central Line Insertion Central Line Indication: IV access Site: subclavian (R) (second attempt), internal jugular (R) (first attempt) Prep: CDC/MBT Guidelines, Sterile Drapes, Chlorhexidine Lumen: triple Gauge: 7Fr Local Anesthesia - Lidocaine (Xylocaine): Other (Patient is sedated on vent) Ultrasound guided: No Guidewire and dilator removed intact: Yes Micropuncture kit used: Yes Secured with suture: Yes Complications: No (First attempt to Right IJ resulted in potentially kinked catheter as pump allarmed despite good blood return and easy flush) Complication Description: Fist catheter removed intact and pressure held with no further bleeding Post placement confirmation: CXR CXR post-procedure: no pneumothorax, no hemothorax Dressing applied: by provider Central line comment: Steril technique used throughout. Performed with assistance of Dr. Martin
--- NOTE | 2021-08-12 21:56 | PCM.SN.2 ---
Endotracheal Intubation - Endotracheal Intubation Time of Intubation: 08:50 ET Intubation Indication: Respiratory Failure Preparation: BVM Set Up Airway Assessment: Obese, Large Tongue, Other (Poor Teeth) Anesthesia Meds: Etomidate, Rocuronium, Succinylcholine Placement: Orotracheal Cords Visualized: Yes ETT Size In mm: 8 Number of Attempts: 1 Confirmed By: CO2 Indicator, Bilateral Breath Sounds, Chest Xray Tube Secured By: By Provider Endotracheal Intubation Comment: DL X 1 with GlideScope provided grade 1 view with easy passage of ETT with poor dentition remaining as per preop.
--- NOTE | 2021-08-12 22:31 | CR ---
Indication: Intubation and central line placement. Technique: Chest 1 view. Comparison: 08/11/2021. Findings/Impression: Cardiovascular and mediastinum: Endotracheal tube is 2 cm above the сергей. Right subclavian central line tip is at the junction of the SVC and right atrium. NG tube is seen into the stomach. Heart size is within normal limits. Lungs and pleural space: Diffuse bilateral pulmonary infiltrates consistent with pulmonary edema and/or pneumonitis are unchanged if not slightly worsened. No pneumothorax. Bones and soft tissues: No acute findings. Dictated by Lenard Armendariz MD @ 08/12/2021 10:28:57 PM (Electronically Signed)
[2021-08-12] MEDS: propofoL 100 ML IV SCH ×2 (22:32→23:35)
[2021-08-13] MEDS ORDERED: Rocuronium 50 MG/5 ML Vial IVPUSH ONE (00:36)
[2021-08-13] MEDS ORDERED: fentaNYL 50 MCG/ML SDV IVPUSH ONE (00:38)
[2021-08-13] MEDS ORDERED: Dexamethasone 4 MG/ML SDV IVPUSH SCH (00:45)
[2021-08-13] MEDS: propofoL 100 ML IV SCH ×2 (00:48→03:00)
[2021-08-13] MEDS ORDERED: Albumin 25% 12.5 GM/50 ML Bag IV ONE (00:49)
[2021-08-13] MEDS ORDERED: Furosemide 40 MG/4 ML VIAL IVPUSH ONE (00:49)
[2021-08-13] MEDS ORDERED: Cefepime 2 GM in Premix Bag 1 BAG IV SCH (01:00)
[2021-08-13] MEDS ORDERED: fentaNYL/Normal Saline 2,500 MCG in Premix Bag 1 BAG IV SCH (01:00)
--- NOTE | 2021-08-13 01:16 | PN ---
THC Physician - Brief Progress [id number]/13/2021 01:09[facility] Max valentine, [place] - PAUL (SCHUYLER) - BILLY WHITEDate of Service 08/13/2021 01:09HPI/Even ts of Note eICU on-callPatient with severe ARDS, severe COVID-19 pneumonia, Klebsiella pneumoniae UTI -was intubated earlier tonight, hypoxemic.ABG showed pH 7.45, PCO2 38, PO2 46, bicarb 27 on the follo wing vent settings: Assist volume control, rate 24, tidal volume 500, PEEP 14, 100% FyG3Atggoeg is on 80 mcg/kg/min of propofol and 75 mcg/h fentanylPlan:-Adjust sedation fentanyl 50 mcg bolus and incre ase rate to 200 mcg/h gradually-Decrease propofol to 50 mcg/kg/min-Rocuronium 100 mg IV bolus, unable to use continuous neuromuscular blockers due to lack of TOF monitoring. Will use as needed boluses at this time.-Albumin 25 g and Lasix 40 mg IV-Check CRP, add baricitinib 4 mg daily x14 days-Dexameth asone IV 6 mg every 12 hours-Change ceftriaxone to cefepime 2 g IV every 8 hours-Increase PEEP gradua lly to 16 and then to 18, decrease Vmax from 75 l/min to 60 l/min (I:E ratio came down from 1:2.5 to 1:1.8), PRP 34, Pmean 23-Repeat ABG-Recommended prone ventilation it is not safe to be performed at t his time due to lack of trained staff-Was informed that multiple calls to transfer to higher level of care being done and waiting in bed [facility] the [facility].-Discussed with DENNIS LoeraInterventions Major-Hy poxemia - evaluation and management, Respiratory failure - evaluation and managementElectronically Si gned by: Jolie Sinclair) on 08/13/2021 01:15
--- NOTE | 2021-08-13 01:50 | PCM.DCSUM1 ---
Discharge Summary - Discharge Data Discharge Date: 08/13/21 Discharge Disposition: DC/Tfer to Acute Hospital 02 Condition: Good - Referral to Home Health Primary Care Physician: PCP None - Discharge Diagnosis/Problem(s) (1) Acute respiratory failure with hypoxia SNOMED Code(s): 14987835, 866392244 ICD Code: J96.01 - ACUTE RESPIRATORY FAILURE WITH HYPOXIA Status: Acute Current Visit: Yes (2) COVID-19 SNOMED Code(s): 936167910 ICD Code: U07.1 - COVID-19 Status: Acute Current Visit: Yes (3) UTI (urinary tract infection) SNOMED Code(s): 90818770 ICD Code: N39.0 - URINARY TRACT INFECTION, SITE NOT SPECIFIED Status: Acute Current Visit: Yes - Patient Summary/Data Consults: Consultations 08/10/21 09:28 PT Evaluation and Treatment [CONS] Routine Hospital Course: 71-year-old man with a past medical history of morbid obesity, diabetes mellitus and hyperlipidemia who was admittted for COVID-19 with hypoxia. He presented with 1 week of nonproductive cough and shortness of breath. EKG was obtained which not reveal any acute signs of ischemia. Laboratory: CBC reveals macrocytosis with an MCV of 100.9 and a platelet count of 130. CMP reveals hyponatremia at 132, hyperglycemia at 307, elevated AST at 45 otherwise unremarkable. Lactic acid is 3.4. Troponin is negative. CPK is normal. TSH is normal. COVID-19 is positive. Influenza is negative. Serum alcohol is negative.Chest x-ray reveals bilateral patchy infiltrates consistent with COVID- 19 pneumonia. UA was suggestive of UTI. He was treated with remdesivir, dexamethasone and Rocephin. Yesterday his oxygen requirements went from 5 to 10 L NC. Today he progressed from needing heated high flow to CPAP then to intubation. Due to the need of higher level of care multiple hospitals were called. [facility] in [place] did have an open bed and Dr Marina Ruth has accepted the patient. - Discharge Plan Home Medications: Home Meds atorvaSTATin Calcium [Atorvastatin Calcium] 20 mg PO BEDTIME 08/10/17 [History] metFORMIN [Glucophage] 1,000 mg PO BIDMEALS 08/14/18 [History] oxyCODONE 5 mg PO Q6H PRN #10 tablet 08/24/18 [Rx] Patient Handouts: COVID-19 Frequently Asked Questions, COVID-19, COVID-19 Vaccine Information, COVID-19: How to Protect Yourself and Others - [facility] Referrals: Cesar Cheatham NP [Ordering Only Provider] - - Discharge Summary/Plan Comment DC Time >30 min.: Yes Total # of Minutes for Discharge Time: 60 - Patient Data Vitals - Most Recent: Last Vital Signs Temp 36.6 C 08/13/21 00:00 Pulse 71 08/13/21 00:00 Resp 24 H 08/13/21 00:00 BP 109/56 L 08/13/21 00:00 Pulse Ox 82 L 08/13/21 00:00 Weight - Most Recent: 153.995 kg I&O - Last 24 hours: Intake & Output 08/12/21 08/12/21 08/13/21 14:59 22:59 06:59 Intake Total 340 Output Total 300 Balance 40 Lab Results - Last 24 hrs: Laboratory Results - last 24 hr 08/12/21 08/12/21 08/12/21 Range/Units 06:15 06:15 06:48 WBC 10.48 (4.0-11.0) K/uL RBC 4.06 L (4.50-5.90) M/uL Hgb 13.6 (13.0-17.0) g/dL Hct 40.9 (38.0-50.0) % MCV 100.7 H (80.0-98.0) fL MCH 33.5 H (27.0-32.0) pg MCHC 33.3 (31.0-37.0) g/dL RDW Std Deviation 50.0 (28.0-62.0) fl RDW Coeff of Yasmani 14 (11.0-15.0) % Plt Count 215 (150-400) K/uL MPV 9.60 (7.40-12.00) fL Add Manual Diff YES Neutrophils % (Manual) 84 H (48.0-80.0) % Band Neutrophils % 2 % Lymphocytes % (Manual) 10 L (16.0-40.0) % Monocytes % (Manual) 4 (0.0-15.0) % Nucleated RBC % 0.0 /100WBC Absolute Seg Neuts 8.8 H (1.4-5.7) Band Neutrophils # 0.2 Lymphocytes # (Manual) 1.0 (0.6-2.4) Monocytes # (Manual) 0.4 (0.0-0.8) Nucleated RBCs # 0 K/uL ABG pH (7.35-7.45) ABG pCO2 (35-45) mmHG ABG pO2 (80-105) mmHG ABG HCO3 (22-26) mEq/L ABG Total CO2 (23-27) mmol/L ABG Base Excess (-2.0-3.0) Sodium 139 (136-148) mmol/L Potassium 3.7 (3.5-5.1) mmol/L Chloride 102 (98-107) mmol/L Carbon Dioxide 30.6 (21.0-32.0) mmol/L BUN 11 (7.0-18.0) mg/dL Creatinine 0.8 (0.8-1.3) mg/dL Est Cr Clr Drug Dosing 84.69 mL/min Estimated GFR (MDRD) > 60.0 ml/min Glucose 154 H (74-106) mg/dL POC Glucose 148 H (70-99) mg/dL Calcium 7.2 L (8.5-10.1) mg/dL Total Bilirubin 0.6 (0.2-1.0) mg/dL AST 29 (15-37) IU/L ALT 23 (14-63) IU/L Alkaline Phosphatase 38 L (46-116) U/L C-Reactive Protein (0.00-0.90) mg/dL Total Protein 6.8 (6.4-8.2) g/dL Albumin 2.3 L (3.4-5.0) g/dL Globulin 4.5 H (2.6-4.0) g/dL Albumin/Globulin Ratio 0.5 L (0.9-1.6) 08/12/21 08/12/21 08/13/21 Range/Units 12:10 23:41 00:55 WBC (4.0-11.0) K/uL RBC (4.50-5.90) M/uL Hgb (13.0-17.0) g/dL Hct (38.0-50.0) % MCV (80.0-98.0) fL MCH (27.0-32.0) pg MCHC (31.0-37.0) g/dL RDW Std Deviation (28.0-62.0) fl RDW Coeff of Yasmani (11.0-15.0) % Plt Count (150-400) K/uL MPV (7.40-12.00) fL Add Manual Diff Neutrophils % (Manual) (48.0-80.0) % Band Neutrophils % % Lymphocytes % (Manual) (16.0-40.0) % Monocytes % (Manual) (0.0-15.0) % Nucleated RBC % /100WBC Absolute Seg Neuts (1.4-5.7) Band Neutrophils # Lymphocytes # (Manual) (0.6-2.4) Monocytes # (Manual) (0.0-0.8) Nucleated RBCs # K/uL ABG pH 7.45 (7.35-7.45) ABG pCO2 38 (35-45) mmHG ABG pO2 46 L (80-105) mmHG ABG HCO3 27 H (22-26) mEq/L ABG Total CO2 23.5 (23-27) mmol/L ABG Base Excess 2.5 (-2.0-3.0) Sodium (136-148) mmol/L Potassium (3.5-5.1) mmol/L Chloride (98-107) mmol/L Carbon Dioxide (21.0-32.0) mmol/L BUN (7.0-18.0) mg/dL Creatinine (0.8-1.3) mg/dL Est Cr Clr Drug Dosing mL/min Estimated GFR (MDRD) ml/min Glucose (74-106) mg/dL POC Glucose 293 H (70-99) mg/dL Calcium (8.5-10.1) mg/dL Total Bilirubin (0.2-1.0) mg/dL AST (15-37) IU/L ALT (14-63) IU/L Alkaline Phosphatase (46-116) U/L C-Reactive Protein 17.40 H (0.00-0.90) mg/dL Total Protein (6.4-8.2) g/dL Albumin (3.4-5.0) g/dL Globulin (2.6-4.0) g/dL Albumin/Globulin Ratio (0.9-1.6) JOHNIE Results - Last 24 hrs: Microbiology 08/07/21 14:00 Aerobic Blood Culture - Final Blood - Venous - Lab Draw NO GROWTH AFTER 5 DAYS Anaerobic Blood Culture - Final NO GROWTH AFTER 5 DAYS 08/07/21 14:00 Aerobic Blood Culture - Final Blood - Venous NO GROWTH AFTER 5 DAYS Anaerobic Blood Culture - Final Med Orders - Current: Current Medications Acetaminophen (Acetaminophen 325 Mg Tab) 650 mg PO Q4H PRN PRN Reason: Pain (Mild 1-3)/fever Last Admin: 08/12/21 00:51 Dose: 650 mg Documented by: Albuterol/Ipratropium (Albuterol/Ipratropium 3.0-0.5 Mg/3 Ml Neb Soln) 3 ml NEB Q4HRRT PRN PRN Reason: Shortness Of Breath/wheezing Albuterol/Ipratropium (Albuterol/Ipratropium 4 Gm Inhalation Lin[place]) 0 gm INH Q4H VÍCTOR Last Admin: 08/12/21 15:58 Dose: Not Given Documented by: Baricitinib (Baricitinib 2 Mg Tab) 4 mg PO DAILY VÍCTOR Stop: 08/27/21 01:01 Last Admin: 08/13/21 01:20 Dose: 4 mg Documented by: Dexamethasone (Dexamethasone 4 Mg/Ml Sdv) 6 mg IVPUSH Q12HR VÍCTOR Last Admin: 08/13/21 01:15 Dose: 6 mg Documented by: Dextrose/Water (50% Dextrose In Water 50 Ml Syringe) 50 ml IVPUSH ASDIRECTED PRN PRN Reason: Hypoglycemia Enoxaparin Sodium (Enoxaparin 40 Mg/0.4 Ml Syringe) 40 mg SUBCUT Q24H VÍCTOR Last Admin: 08/11/21 17:10 Dose: 40 mg Documented by: Glucagon (Glucagon,Human Recombinant 1 Mg Vial) 1 mg IM ASDIRECTED PRN PRN Reason: Hypoglycemia Guaifenesin/Dextromethorphan (Guaifenesin/Dextromethorphan 100-10 Mg/5 Ml Soln 10 Ml Cup) 10 ml PO Q4H PRN PRN Reason: Cough Last Admin: 08/11/21 17:10 Dose: 10 ml Documented by: Pantoprazole Sodium 40 mg/ (Sodium Chloride) 10 mls @ 200 mls/hr IV Q24H VÍCTOR Last Admin: 08/11/21 17:10 Dose: 200 mls/hr Documented by: Dexmedetomidine/Sodium (Chloride 400 mcg/ Premix) 100 mls @ 7.7 mls/hr IV TITRATE VÍCTOR; Protocol Propofol (Diprivan 100 Ml) 100 mls @ 4.62 mls/hr IV TITRATE VÍCTOR; Protocol Last Admin: 08/13/21 00:48 Dose: 50 mcg/kg/min, 46.199 mls/hr Documented by: Sodium Chloride (Normal Saline) 1,000 mls @ 125 mls/hr IV ASDIRECTED [facility] Fentanyl Citrate 2,500 mcg/ (Premix) 250 mls @ 15.3 mls/hr IV TITRATE VÍCTOR; Protocol Last Admin: 08/12/21 21:05 Dose: 1 mcg/kg/hr, 15.3 mls/hr Documented by: Norepinephrine Bitartrate (Norepinephr-0.9% Nacl 4 Mg/250) 4 mg in 250 mls @ 7.5 mls/hr IV TITRATE VÍCTOR; Protocol Last Titration: 08/12/21 22:40 Dose: 3 mcg/min, 11.25 mls/hr Documented by: Cefepime HCl 2 gm/ Premix 50 mls @ 100 mls/hr IV Q8H VÍCTOR Last Admin: 08/13/21 01:19 Dose: 100 mls/hr Documented by: Insulin Aspart (Insulin Aspart 100 Units/Ml 3 Ml Pen) 0 unit SUBCUT TIDAC [facility]; Protocol Last Admin: 08/12/21 12:29 Dose: Not Given Documented by: Ondansetron HCl (Ondansetron 4 Mg/2 Ml Sdv) 4 mg IVPUSH Q4H PRN PRN Reason: Nausea/Vomiting Pneumococcal Polyvalent Vaccine (Pneumococcal 23-Valent Conjugate Vaccine 0.5 Ml Syringe) 25 mcg IM .ONCE ONE Stop: 08/13/21 09:01 Sodium Chloride (Sodium Chloride 0.65% Nasal Linwood 45 Ml Bottle) 1 ml CHARISMA Q6H PRN PRN Reason: Congestion Last Admin: 08/11/21 20:24 Dose: 1 spray Documented by: Discontinued Medications Acetaminophen (Acetaminophen 500 Mg Tab) 1,000 mg PO ONETIME ONE Stop: 08/07/21 14:39 Last Admin: 08/07/21 15:03 Dose: 1,000 mg Documented by: Albumin Human (Albumin 25% 12.5 Gm/50 Ml Bag) 25 gm IV ONETIME ONE Stop: 08/13/21 00:50 Last Admin: 08/13/21 01:18 Dose: 25 gm Documented by: Dexamethasone (Dexamethasone 4 Mg Tab) 6 mg PO ONETIME ONE Stop: 08/07/21 15:13 Last Admin: 08/07/21 15:38 Dose: 6 mg Documented by: Dexamethasone (Dexamethasone 4 Mg Tab) 6 mg PO DAILY [facility] Last Admin: 08/12/21 08:08 Dose: 6 mg Documented by: Fentanyl (Fentanyl 50 Mcg/Ml Sdv) 50 mcg IVPUSH ONETIME ONE Stop: 08/13/21 00:39 Last Admin: 08/13/21 00:49 Dose: 50 mcg Documented by: Furosemide (Furosemide 40 Mg/4 Ml Vial) 40 mg IVPUSH NOW ONE Stop: 08/13/21 00:50 Last Admin: 08/13/21 01:14 Dose: 40 mg Documented by: Lactated Ringer's (Ringers, Lactated) 1,000 mls @ 999 mls/hr IV ASDIRECTED [facility] Last Admin: 08/07/21 15:04 Dose: 999 mls/hr Documented by: Lactated Ringer's (Ringers, Lactated) 1,000 mls @ 150 mls/hr IV ASDIRECTED [facility] Last Admin: 08/07/21 15:03 Dose: 150 mls/hr Documented by: Remdesivir 200 mg/ Sodium (Chloride) 250 mls @ 250 mls/hr IV ONETIME ONE Stop: 08/07/21 15:04 Last Admin: 08/07/21 16:05 Dose: 250 mls/hr Documented by: Ceftriaxone Sodium/Dextrose 2 (gm/ Premix) 50 mls @ 100 mls/hr IV ONETIME ONE Stop: 08/07/21 16:19 Last Admin: 08/07/21 16:13 Dose: 100 mls/hr Documented by: Remdesivir 100 mg/ Sodium (Chloride) 100 mls @ 100 mls/hr IV Q24H [facility] Stop: 08/11/21 18:14 Last Admin: 08/11/21 17:22 Dose: 100 mls/hr Documented by: Ceftriaxone Sodium/Dextrose 1 (gm/ Premix) 50 mls @ 100 mls/hr IV Q24H [facility] Last Admin: 08/12/21 08:09 Dose: 100 mls/hr Documented by: Dexmedetomidine/Sodium Chloride 400 mcg/Dexmedetomidine/Sodium Chloride 200 mls @ 15.4 mls/hr IV TITRATE VÍCTOR; Protocol Propofol (Diprivan 100 Ml) Confirm Administered Dose 100 mls @ as directed .ROUTE .STK-MED ONE Stop: 08/12/21 19:46 Last Admin: 08/12/21 23:29 Dose: Not Given Documented by: Fentanyl Citrate (Fentanyl 2500 Mcg In Ns 250 Ml (10 Mcg/Ml)) Confirm Administered Dose 250 mls @ as directed .ROUTE .STK-MED ONE Stop: 08/12/21 19:58 Norepinephrine Bitartrate (Norepinephr-0.9% Nacl 4 Mg/250) Confirm Administered Dose 4 mg in 250 mls @ as directed IV .STK-MED ONE Stop: 08/12/21 19:57 Influenza Virus Vaccine (Pharmacy To Dose - Influenza Vaccine) 1 each IM ONETIME ONE Stop: 08/07/21 17:14 Influenza Virus Vaccine (Flu Vacc Ab4865(65up)/Mf59c/Pf 60 Mcg/0.5 Ml Syringe) 60 mcg IM .ONCE ONE Stop: 08/08/21 09:01 Pantoprazole Sodium (Pantoprazole 40 Mg Vial) 40 mg IV Q24H VÍCTOR Last Admin: 08/07/21 19:13 Dose: Not Given Documented by: Pneumococcal Polyvalent Vaccine (Pneumococcal 23-Valent Conjugate Vaccine 0.5 Ml Syringe) 25 mcg IM .ONCE ONE Stop: 08/07/21 17:14 Rocuronium Nolan (Rocuronium 50 Mg/5 Ml Vial) 100 mg IVPUSH ONETIME ONE Stop: 08/13/21 00:37 Last Admin: 08/13/21 01:10 Dose: 100 mg Documented by: Discharge Operative/Procedures - Procedures Performed Intubation Indication: Respiratory Failure Arterial Line Indication: hemodynamic monitoring CL Indication: IV access
[2021-08-13 03:42] VITALS: BP 121/59; PULSE 68
[2021-08-13] MEDS ORDERED: Pneumococcal 23-Valent Conjugate Vaccine 0.5 ML Syringe IM ONE (09:00)
== END 2021-08-13 03:20 | DRG 871 ==
LOC: MW.ED 13:50 → MW.MS 15:13 → MW.ICU 08-12 15:43
PROVIDERS: ADMIT Student in an Organized Health Care Education/Training Program; ATTEND Student in an Organized Health Care Education/Training Program
PROC: XW033E5 Introduction of Remdesivir Anti-infective into Peripheral Vein, Percutaneous Approach, New Technology Group 5 (ICD-10-PCS; principal; 2021-08-07)
PROC: 3E0DX3Z Introduction of Anti-inflammatory into Mouth and Pharynx, External Approach (ICD-10-PCS; 2021-08-07)
PROC: 5A0945A Assistance with Respiratory Ventilation, 24-96 Consecutive Hours, High Flow/Velocity Cannula (ICD-10-PCS; 2021-08-07)
PROC: 5A09457 Assistance with Respiratory Ventilation, 24-96 Consecutive Hours, Continuous Positive Airway Pressure (ICD-10-PCS; 2021-08-08)
PROC: 5A1935Z Respiratory Ventilation, Less than 24 Consecutive Hours (ICD-10-PCS; 2021-08-12)
PROC: 0BH17EZ Insertion of Endotracheal Airway into Trachea, Via Natural or Artificial Opening (ICD-10-PCS; 2021-08-12)
PROC: 02HV33Z Insertion of Infusion Device into Superior Vena Cava, Percutaneous Approach (ICD-10-PCS; 2021-08-12)
PROC: 03HY32Z Insertion of Monitoring Device into Upper Artery, Percutaneous Approach (ICD-10-PCS; 2021-08-12)
PROC: 4A133B1 Monitoring of Arterial Pressure, Peripheral, Percutaneous Approach (ICD-10-PCS; 2021-08-12)
PROC: 4A133J1 Monitoring of Arterial Pulse, Peripheral, Percutaneous Approach (ICD-10-PCS; 2021-08-12)
PROC: 3E0333Z Introduction of Anti-inflammatory into Peripheral Vein, Percutaneous Approach (ICD-10-PCS; 2021-08-13)
PROC: XW0DXM6 Introduction of Baricitinib into Mouth and Pharynx, External Approach, New Technology Group 6 (ICD-10-PCS; 2021-08-13)
PROC: 3E0234Z Introduction of Serum, Toxoid and Vaccine into Muscle, Percutaneous Approach (ICD-10-PCS; 2021-08-13)
DX: A41.89 Other specified sepsis (principal); U07.1 COVID-19; J12.82 Pneumonia due to coronavirus disease 2019; J80 Acute respiratory distress syndrome; N39.0 Urinary tract infection, site not specified; E11.9 Type 2 diabetes mellitus without complications; E87.1 Hypo-osmolality and hyponatremia; Z68.41 Body mass index [BMI] 40.0-44.9, adult; Z79.84 Long term (current) use of oral hypoglycemic drugs; D84.9 Immunodeficiency, unspecified; Z97.3 Presence of spectacles and contact lenses; Z89.021 Acquired absence of right finger(s); Z79.899 Other long term (current) drug therapy; E66.01 Morbid (severe) obesity due to excess calories; E78.5 Hyperlipidemia, unspecified; E11.65 Type 2 diabetes mellitus with hyperglycemia; E78.00 Pure hypercholesterolemia, unspecified; K57.90 Diverticulosis of intestine, part unspecified, without perforation or abscess without bleeding; E66.9 Obesity, unspecified; Z98.890 Other specified postprocedural states; K57.30 Diverticulosis of large intestine without perforation or abscess without bleeding; F41.9 Anxiety disorder, unspecified; Z23 Encounter for immunization
CPT/HCPCS: 0240U; 36415; 36600; 71045; 80053; 80307; 81001; 82550; 82803; 82947; 83605; 83735; 83880; 84100; 84443; 84484; 85025; 85652; 86140; 87040; 87086; 87088; 87186; 93005; 94002; 94640; 97161; 97530; 99291; 31500; 36556; 36620; 99100; A9270-GY; C9113; J0692; J0696; J1100; J1650; J1815-GY; J1940; J2704; J3010; J7050; J7120; J8540; P9047